=== PATIENT | female | born 1960 | race Caucasian/White ===

== ENCOUNTER 2017-03-04 21:22 | Emergency (ER) | payer BC, OTHER ==
[2017-03-04] MEDS ORDERED: fentaNYL 100 MCG/2 ML SDV IVPUSH ONE (21:34)
[2017-03-04] MEDS ORDERED: Sodium Chloride 0.9% 2.5 ML Syringe FLUSH PRN (21:34)
[2017-03-04] MEDS ORDERED: Sodium Chloride 0.9% 10 ML Syringe FLUSH PRN (21:34)
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
[2017-03-04] MEDS ORDERED: HYDROmorphone 1 MG/ML Syringe IVPUSH ONE (22:59)
[2017-03-05] MEDS ORDERED: Acetaminophen/oxyCODONE 325-10 MG Tab PO ONE (00:04)
[2017-03-05 00:13] VITALS: BP 137/83
--- NOTE | 2017-03-05 15:53 | CT ---
EXAM DATE: 03/04/17 PATIENT'S AGE: 57 Patient: CECILE ADAME Facility: [place], [place] Site . Site : 1960 Study: CT Spine Cervical WO CONT [id number]/25/2017 10:56:10 PM Ordering Physician: Ashly Echols Final Report: INDICATION: Neck pain TECHNIQUE: CT cervical spine without contrast. COMPARISON: None FINDINGS: Vertebral alignment: Alignment is normal. Vertebrae: There are no fractures or suspicious bony lesions. Discs and facet joints: There are mild multilevel degenerative disc and facet changes. Extraspinal findings: Paraspinous soft tissues are unremarkable. IMPRESSION: 1. No sign of acute abnormality. 2. Mild multilevel degenerative spondylosis. Dictated by Rosamaria Bernabe MD @ Mar 04 2017 11:00PM (Electronic Signature) Report Signed by Proxy and Original Signed Document filed in the Medical Record. JENNIFFER
== END 2017-03-05 00:16 | disposition home or self-care (01) ==
LOC: MW.ED 21:22
DX: S16.1XXA Strain of muscle, fascia and tendon at neck level, initial encounter (principal); E78.00 Pure hypercholesterolemia, unspecified; Z87.891 Personal history of nicotine dependence; Z79.899 Other long term (current) drug therapy; Z91.09 Other allergy status, other than to drugs and biological substances; X58.XXXA Exposure to other specified factors, initial encounter
CPT/HCPCS: 72125; 96374; 96375; 99284; A9270; J1170; J3010; 99283

== ENCOUNTER 2017-03-06 15:54 | Emergency (ER) | payer BC, OTHER ==
--- NOTE | 2017-03-06 16:12 | EDM.PDOC ---
<Nan Sam - Last Filed: 03/06/17 17:25> ED HPI GENERAL MEDICAL PROBLEM - General Chief Complaint: General Stated Complaint: PT WOULD LIKE TO GET CHECK Time Seen by Provider: 03/06/17 16:05 Source of Information: Reports: Patient History Limitations: Reports: No limitations - History of Present Illness INITIAL COMMENTS - FREE TEXT/NARRATIVE: HISTORY AND PHYSICAL: [] This is a 57-year-old female with hepatitis C and cirrhosis to her liver History of Present Illness: [Patient was in the emergency room a few days ago with a neck strain received Percocet for her pain Her pain physician in [facility] Dr. Shannon stated she was allergic to Percocet and she should not take this medication. She was instructed to come to the hospital emergency room. Patient denies any unwell feelings at this time no shortness of breath no rash] Review of Systems: As per history of present illness and below otherwise all systems reviewed and negative. Past medical history: As per history of present illness and as reviewed below otherwise noncontributory. Surgical history: As per history of present illness and as reviewed below otherwise noncontributory. Social history: No reported history of drug or alcohol abuse. Family history: As per history of present illness and as reviewed below otherwise noncontributory. Physical exam: Alert anxious-looking woman HEENT: Atraumatic, normocehpalic, pupils reactive, negative for conjunctival pallor or scleral icterus, mucous membranes moist, throat clear, neck supple, nontender, trachea midline. Mild jaundice to her eyes Lungs: Clear to auscultation, breath sounds equal bilaterally, chest non tender. Heart: S1S2, regular, negative for clicks, rubs, or JVD. Abdomen: Soft, nondistended, nontender. Negative for masses or hepatossplenmegaly. Negative for costovertebral tenderness. Pelvis: Stable nontender. Genitourinary: Deferred. Rectal: Deferred Extremities: Atraumatic, negative for cords or calf pain. Neurovascular unremarkable. Neuro: Awake, alert, oriented. Cranial nerves II through XII unremarkable. Cerebellum unremarkable. Motor and sensory unremarkable throughout. Exam nonfocal. Have contacted Dr. Shannon infectious control in [facility] who has recommended that Percocet be stopped would like to have a CBC CMP PT/INR drawn please notify once results are returned The family has been notified of the results and my discussion with Dr. Shannon. He has requested that they see him on Friday or Friday of next week. . Diagnostics: [CBC CMP PT/INR ammonia] Therapeutics: [] Impression: [Confusion Jaundice] Plan: [. Stop Percocet Call tomorrow for appointment on Friday or Friday with Dr. Shannon Any worsening of symptoms return for immediate evaluation] Definitive disposition and diagnosis as appropriate pending reevaluation and review of above. Onset: today Duration: Hour(s): (2) Location: Reports: generalized Severity: mild neck Pain Score (Numeric/FACES): 8 - Related Data Allergies Allergy/AdvReac Type Severity Reaction Status Date / Time acetaminophen [From Percocet] Allergy Confusion Verified 03/06/17 16:05 adhesive Allergy Rash Verified 03/04/17 21:34 oxycodone [From Percocet] Allergy Confusion Verified 03/06/17 16:05 Home Meds: Home Meds DULoxetine HCl [Duloxetine HCl] 60 mg PO DAILY 04/26/14 [History] Ledipasvir/Sofosbuvir [Harvoni 90-400 mg Tablet] 1 tab PO DAILY 03/04/17 [ History] Ribavirin [Ribasphere] 2 tab PO BID 03/04/17 [History] ALPRAZolam [Alprazolam ODT] 0.5 mg PO ONETIME 03/06/17 [History] DULoxetine HCl [Duloxetine HCl] 30 mg PO DAILY 03/06/17 [History] Past Medical History - Past Health History Medical/Surgical History: Denies Medical/Surgical History HEENT History: Reports: Other (see below) Other HEENT History: wears glasses Cardiovascular History: Reports: High cholesterol Respiratory History: Reports: None Gastrointestinal History: Reports: Other (see below) (She reports that she has been treated for chronic hepatitis C) Other Gastrointestinal History: Current Right upper quadrant abdominal pain [employer] RE[employer]ER History: Reports: Musculoskeletal History: Reports: Fracture, Fibromyalgia Other Musculoskeletal History: hx: fractured Right Upper Femur with plate and screws Neurological History: Reports: None Psychiatric History: Reports: Bipolar Endocrine/Metabolic History: Reports: None Other Endocrine/Metabolic History: Current history indicates elevated Glucose Hematologic History: Reports: Blood transfusion(s) Oncologic (Cancer) History: Reports: Colon Dermatologic History: Reports: None - Infectious Disease History Infectious Disease History: Reports: Hepatitis C - Past Surgical History GI Surgical History: Reports: Colon Other GI Surgeries/Procedures: Ascending Colon Resection for cancer, Abdominolplasty Female Surgical History: Reports: section Neurological Surgical History: Reports: Other (see below) Other Neurological Surgeries/Procedures: Carpal tunnel decompression Social & Family History - Tobacco Use Smoking Status *Q: Former Smoker Used Tobacco, but Quit: Yes Month Tobacco Last Used: 120 - Alcohol Use Days Per Week of Alcohol Use: 1 Number of Drinks Per Day: 2 Total Drinks Per Week: 2 - Recreational Drug Use Recreational Drug Use: No Drug Use in Last 12 Months: No ED ROS GENERAL - Review of Systems Review Of Systems: ROS reveals no pertinent complaints other than HPI. ED EXAM, GENERAL - Physical Exam Exam: See Below (See dictation) Course - Vital Signs Last Recorded V/S: Last Vital Signs Temp 37.9 C 03/06/17 17:56 Pulse 104 H 03/06/17 17:56 Resp 18 03/06/17 17:56 BP 131/72 03/06/17 17:56 Pulse Ox 94 L 03/06/17 17:56 - Orders/Labs/Meds Labs: Laboratory Tests 03/06/17 03/06/17 03/06/17 Range/Units 16:37 16:37 16:37 WBC 7.46 (4.0-11.0) K/uL RBC 4.02 L (4.30-5.90) M/uL Hgb 12.7 (12.0-16.0) g/dL Hct 38.0 (36.0-46.0) % MCV 94.5 (80.0-98.0) fL MCH 31.6 (27.0-32.0) pg MCHC 33.4 (31.0-37.0) g/dL RDW Std Deviation 55.6 (28.0-62.0) fl RDW Coeff of Karlos 16 H (11.0-15.0) % Plt Count 66 L (150-400) K/uL MPV 10.20 (7.40-12.00) fL Neut % (Auto) 83.7 H (48.0-80.0) % Lymph % (Auto) 8.3 L (16.0-40.0) % Stone % (Auto) 7.6 (0.0-15.0) % Eos % (Auto) 0.0 (0.0-7.0) % Baso % (Auto) 0.4 (0.0-1.5) % Neut # (Auto) 6.2 H (1.4-5.7) K/uL Lymph # (Auto) 0.6 (0.6-2.4) K/uL Stone # (Auto) 0.6 (0.0-0.8) K/uL Eos # (Auto) 0.0 (0.0-0.7) K/uL Baso # (Auto) 0.0 (0.0-0.1) K/uL Nucleated RBC % 0.0 /100WBC Nucleated RBCs # 0 K/uL INR 1.54 H (0.86-1.11) Sodium 132 L (136-146) mmol/L Potassium 4.2 (3.5-5.1) mmol/L Chloride 101 (98-110) mmol/L Carbon Dioxide 21 (21-31) mmol/L BUN 16 (6.0-23.0) mg/dL Creatinine 0.8 (0.6-1.5) mg/dL Est Cr Clr Drug Dosing 70.88 mL/min Estimated GFR (MDRD) > 60.0 ml/min Glucose 96 (60-110) mg/dL Calcium 8.8 (8.8-10.8) mg/dL Total Bilirubin 5.6 H (0.1-1.5) mg/dL AST 71 H (5-40) IU/L ALT 28 (8-54) IU/L Alkaline Phosphatase 66 (40-150) Ammonia (14-68) UG/DL Total Protein 6.8 (6.0-8.0) g/dL Albumin 2.9 L (3.5-5.0) g/dL Globulin 3.9 H (2.0-3.5) g/dL Albumin/Globulin Ratio 0.7 L (1.3-2.8) 03/06/17 Range/Units 16:37 WBC (4.0-11.0) K/uL RBC (4.30-5.90) M/uL Hgb (12.0-16.0) g/dL Hct (36.0-46.0) % MCV (80.0-98.0) fL MCH (27.0-32.0) pg MCHC (31.0-37.0) g/dL RDW Std Deviation (28.0-62.0) fl RDW Coeff of Karlos (11.0-15.0) % Plt Count (150-400) K/uL MPV (7.40-12.00) fL Neut % (Auto) (48.0-80.0) % Lymph % (Auto) (16.0-40.0) % Stone % (Auto) (0.0-15.0) % Eos % (Auto) (0.0-7.0) % Baso % (Auto) (0.0-1.5) % Neut # (Auto) (1.4-5.7) K/uL Lymph # (Auto) (0.6-2.4) K/uL Stone # (Auto) (0.0-0.8) K/uL Eos # (Auto) (0.0-0.7) K/uL Baso # (Auto) (0.0-0.1) K/uL Nucleated RBC % /100WBC Nucleated RBCs # K/uL INR (0.86-1.11) Sodium (136-146) mmol/L Potassium (3.5-5.1) mmol/L Chloride (98-110) mmol/L Carbon Dioxide (21-31) mmol/L BUN (6.0-23.0) mg/dL Creatinine (0.6-1.5) mg/dL Est Cr Clr Drug Dosing mL/min Estimated GFR (MDRD) ml/min Glucose (60-110) mg/dL Calcium (8.8-10.8) mg/dL Total Bilirubin (0.1-1.5) mg/dL AST (5-40) IU/L ALT (8-54) IU/L Alkaline Phosphatase (40-150) Ammonia 99 H (14-68) UG/DL Total Protein (6.0-8.0) g/dL Albumin (3.5-5.0) g/dL Globulin (2.0-3.5) g/dL Albumin/Globulin Ratio (1.3-2.8) Meds: Medications Discontinued Medications Generic Name Dose Route Start Last Admin Trade Name Freq PRN Reason Stop Dose Admin Diphenhydramine HCl 50 mg 03/06/17 16:13 Benadryl PO 03/06/17 16:14 ONETIME ONE Sodium Chloride 10 ml 03/06/17 16:23 Saline Flush FLUSH ASDIRECTED PRN Keep Vein Open Sodium Chloride 2.5 ml 03/06/17 16:23 Saline Flush FLUSH ASDIRECTED PRN Keep Vein Open Departure - Departure Time of Disposition: 17:28 Disposition: Home, Self-Care 01 Condition: good Clinical Impression: Jaundice, Confusion Instructions: Jaundice, Adult, [id number], Confusion Referrals: Parish Sullivan MD [Primary Care Provider] - Forms: ED Department Discharge Additional Instructions: The following information is given to patients seen in the emergency department who are being discharged to home. This information is to outline your options for follow-up care. We provide all patients seen in our emergency department with a follow-up referral. The need for follow-up, as well as the timing and circumstances, are variable depending upon the specifics of your emergency department visit. If you don't have a primary care physician on staff, we will provide you with a referral. We always advise you to contact your personal physician following an emergency department visit to inform them of the circumstance of the visit and for follow-up with them and/or the need for any referrals to a consulting specialist. The emergency department will also refer you to a specialist when appropriate. This referral assures that you have the opportunity for followup care with a specialist. All of these measure are taken in an effort to provide you with optimal care, which includes your followup. Under all circumstances we always encourage you to contact your private physician who remains a resource for coordinating your care. When calling for followup care, please make the office aware that this follow-up is from your recent emergency room visit. If for any reason you are refused follow-up, please contact the [facility] emergency department at and asked to speak to the emergency department charge nurse. call for appointment with Dr. Shannon on Friday or Friday Return to the emergency room should any symptoms worsen <Joaquín Gallegos - Last Filed: 03/07/17 20:01> ED HPI GENERAL MEDICAL PROBLEM - History of Present Illness INITIAL COMMENTS - FREE TEXT/NARRATIVE: Nan had discussed the patient in detail with Dr. Shannon, infectious disease specialist at [facility], and he recommended followup with him in a few days as listed above
[2017-03-06] MEDS ORDERED: diphenhydrAMINE 50 MG Cap PO ONE (16:13)
[2017-03-06] MEDS ORDERED: Sodium Chloride 0.9% 2.5 ML Syringe FLUSH PRN (16:23)
[2017-03-06] MEDS ORDERED: Sodium Chloride 0.9% 10 ML Syringe FLUSH PRN (16:23)
[2017-03-06 17:09] LABS: CHLORIDE,CL 101 mmol/L (98-110); SODIUM,NA 132 mmol/L (136-146)
[2017-03-06 17:59] VITALS: BP 131/72
== END 2017-03-06 17:55 | disposition home or self-care (01) ==
LOC: MW.ED 15:54
DX: R17 Unspecified jaundice (principal); R41.0 Disorientation, unspecified; E78.00 Pure hypercholesterolemia, unspecified; B18.2 Chronic viral hepatitis C; R10.11 Right upper quadrant pain; M79.7 Fibromyalgia; R73.02 Impaired glucose tolerance (oral); Z87.891 Personal history of nicotine dependence; Z85.038 Personal history of other malignant neoplasm of large intestine; Z98.890 Other specified postprocedural states; Z90.49 Acquired absence of other specified parts of digestive tract; Z79.899 Other long term (current) drug therapy; Z87.81 Personal history of (healed) traumatic fracture; Z88.8 Allergy status to other drugs, medicaments and biological substances; Z88.6 Allergy status to analgesic agent
CPT/HCPCS: 36415; 80053; 82140; 85025; 85610; 99283; 99285

== ENCOUNTER → 2017-03-14 | Outpatient (CLI) | payer BC, OTHER ==
[2017-03-14 13:11] LABS: CHLORIDE,CL 101 mmol/L (98-110); SODIUM,NA 129 mmol/L (136-146)
== END ==
LOC: MW.CHIM 12:26
PROVIDERS: ATTEND Internal Medicine
DX: D72.819 Decreased white blood cell count, unspecified (principal); B19.20 Unspecified viral hepatitis C without hepatic coma; S16.1XXA Strain of muscle, fascia and tendon at neck level, initial encounter; B18.2 Chronic viral hepatitis C
CPT/HCPCS: 36415; 80053; 82085; 82550; 85025; 87070

== ENCOUNTER 2017-03-24 01:21 | Emergency (ER) | payer BC, OTHER ==
[2017-03-24] MEDS ORDERED: Sodium Chloride 0.9% 10 ML Syringe FLUSH PRN (01:45)
[2017-03-24] MEDS ORDERED: Sodium Chloride 0.9% 2.5 ML Syringe FLUSH PRN (01:45)
--- NOTE | 2017-03-24 01:51 | EDM.PDOC ---
ED HPI GENERAL MEDICAL PROBLEM - General Chief Complaint: Respiratory Problem Stated Complaint: SHORTNESS OF BREATH Time Seen by Provider: 03/24/17 01:32 - History of Present Illness INITIAL COMMENTS - FREE TEXT/NARRATIVE: HISTORY AND PHYSICAL: History of present illness: The patient is a 57-year-old female with a history of hepatitis C who is currently receiving treatment on a regular basis at [facility] in [place] with an infectious disease physician, Dr Payne, for this and according to the has only recently been doing better and has been very ill throughout the course of the start of this treatment and they present tonight after the patient was asleep tonight started having a coughing fit with mucus and phlegm and then could not catch her breath. According to the this is happening on a nightly basis and he was more concerned this evening due to the severity of the coughing fit and that she almost passed out with it. He says she seemed to be gasping and could not get any air but currently in the ED she is 100% better. The patient says that she has not been short of breath throughout the day over the last few days and has no chest pain or new abdominal pain. She does have a history of chronic pain issues for which she sees physicians and she's seen here locally with . The patient also has a history of 3 weeks of laryngitis and that is not new tonight. Patient says that over the last one week she has been feeling much improved despite receiving this treatment regimen and has now gone back to eating but does feel very gassy. She has not had any recent fever chills runny nose rashes or other systemic complaints the last few days. She's been having bowel movements and having urine output. In the ED she has actually no complaints of chest pain shortness of breath or any pain. The does state that she sleeps every night with her mouth open, again which is not unusual for her. Patient has never had any stated pulmonary disease but the feels that she is "full of fluid". She's never been told that she has congestive heart failure or gross fluid retention and she currently is not fluid restricted in her diet. She is also not on any diuretics. She's scheduled for her next treatment for her hep C this Friday Review of systems: As per history of present illness and below otherwise all systems reviewed and negative. Past medical history: As per history of present illness and as reviewed below otherwise noncontributory. Surgical history: As per history of present illness and as reviewed below otherwise noncontributory. Social history: No reported history of drug or alcohol abuse. Family history: As per history of present illness and as reviewed below otherwise noncontributory. Physical exam: General: Well-developed well-nourished female who has a soft raspy voice consistent with her history of laryngitis who is nontoxic and not breathless. Vital signs of been reviewed by me. HEENT: Atraumatic, normocephalic, negative for conjunctival pallor or scleral icterus, mucous membranes moist, throat clear, neck supple, nontender, trachea midline. Lungs: Clear to auscultation, breath sounds equal bilaterally, chest nontender.No work or breathing no sensory muscle use no stridor or wheezing Heart: S1S2, regular rate and rhythm with a soft systolic ejection murmur appreciated most at the left sternal border. Abdomen: Soft, nondistended, nontender. there is no rebound or guarding but there is tympany on percussion of the upper abdominal areas without tenderness Negative for masses or hepatosplenomegaly. Negative for costovertebral tenderness. Pelvis: Stable nontender. Genitourinary: Deferred. Rectal: Deferred. Extremities: Atraumatic, negative for cords or calf pain. Neurovascular unremarkable.No pedal edema or leg asymmetry Neuro: Awake, alert, oriented. Cranial nerves II through XII unremarkable. Cerebellum unremarkable. Motor and sensory unremarkable throughout. Exam nonfocal. Diagnostics: EKG chest x-ray CBC CMP lactic acid INR BNP troponin Therapeutics: IV O2 monitor DuoNeb I discussed with the patient and at length testing results including the bilirubin dropped of 5.8 to 3.2 and hemoglobin dropped from 11.8 to 9.3 using labs from March 14 as a comparison. The states that she did have labs more recently at [facility] But he does not have those numbers. The patient again insists that she has not had bleeding from her mouth recently and she has had no GI bleeding such as black or bloody stools and no hematuria. I also discussed with them the chest x-ray findings of a left apical nodule that will need followup and the mild atelectasis due to not taking deep breaths. The says that he has a spirometer at home and he will have her use it. Currently she is not exhibiting signs of any infectious process. I gave him a spacer and I will write for an albuterol inhaler to use as a rescue at home because I feel that the symptoms they are describing sound like a bronchospasm. We will give a duo neb here so the patient can experience the medications and different delivery system. I strongly told them that they need to discuss the lab changes with their provider at [place] when they go there tomorrow for her hep C treatment. I've advised him on reasons to return to the ER. Impression: Episode of dyspnea/bronchospasm resolved prior to admission, history of hep C with treatment regimen Definitive disposition and diagnosis as appropriate pending reevaluation and review of above. no pain Pain Score (Numeric/FACES): 0 - Related Data Allergies Allergy/AdvReac Type Severity Reaction Status Date / Time acetaminophen [From Percocet] Allergy Confusion Verified 03/24/17 01:27 adhesive Allergy Rash Verified 03/24/17 01:27 oxycodone [From Percocet] Allergy Confusion Verified 03/24/17 01:27 Home Meds: Home Meds DULoxetine HCl [Duloxetine HCl] 60 mg PO DAILY 04/26/14 [History] Ledipasvir/Sofosbuvir [Harvoni 90-400 mg Tablet] 1 tab PO DAILY 03/04/17 [ History] Ribavirin [Ribasphere] 2 tab PO BID 03/04/17 [History] ALPRAZolam [Alprazolam ODT] 0.5 mg PO ONETIME 03/06/17 [History] DULoxetine HCl [Duloxetine HCl] 30 mg PO DAILY 03/06/17 [History] Past Medical History - Past Health History Medical/Surgical History: Denies Medical/Surgical History HEENT History: Reports: Other (See Below) Other HEENT History: wear glasses Cardiovascular History: Reports: None Respiratory History: Reports: None Gastrointestinal History: Reports: Other (See Below) Other Gastrointestinal History: Colon CA. 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: Musculoskeletal History: Reports: None Other Musculoskeletal History: hx: fractured Right Upper Femur with plate and screws Neurological History: Reports: None Psychiatric History: Reports: Anxiety, Bipolar, Depression Endocrine/Metabolic History: Reports: None Other Endocrine/Metabolic History: Current history indicates elevated Glucose Hematologic History: Reports: Blood Transfusion(s) Oncologic (Cancer) History: Reports: Colon Dermatologic History: Reports: None - Infectious Disease History Infectious Disease History: Reports: Hepatitis C - Past Surgical History GI Surgical History: Reports: Cholecystectomy, Other (See Below) Other GI Surgeries/Procedures: Tummy Tuck Female Surgical History: Reports: Section Musculoskeletal Surgical History: Reports: Carpal Tunnel Social & Family History - Family History Family Medical History: Noncontributory - Tobacco Use Smoking Status *Q: Never Smoker Used Tobacco, but Quit: Yes Month Tobacco Last Used: 120 - Caffeine Use Caffeine Use: Reports: Soda - Alcohol Use Days Per Week of Alcohol Use: 1 Number of Drinks Per Day: 2 Total Drinks Per Week: 2 - Recreational Drug Use Recreational Drug Use: No Drug Use in Last 12 Months: No Recreational Drug Type: Reports: Marijuana/Hashish ED ROS GENERAL - Review of Systems Review Of Systems: ROS reveals no pertinent complaints other than HPI. ED EXAM, GENERAL - Physical Exam Exam: See Below (See dictation) Course - Vital Signs Last Recorded V/S: Last Vital Signs Temp 36.7 C 03/24/17 01:29 Pulse 88 03/24/17 01:29 Resp 18 03/24/17 01:29 BP 128/69 03/24/17 01:29 Pulse Ox 99 03/24/17 01:51 - Orders/Labs/Meds Orders: Active Orders 24 hr Category Date Time Status Cardiac Monitoring [RC] . DIRECTED Care 03/24/17 01:44 Active EKG 12 Lead [EKG Documentation Completion] [RC] ROUTINE Care 03/24/17 01:20 Active Oxygen Therapy, ED [RC] ASDIRECTED Care 03/24/17 01:44 Active Pulse Oximetry [RC] ASDIRECTED Care 03/24/17 01:44 Active RT Aerosol Therapy [RC] ASDIRECTED Care 03/24/17 02:56 Ordered Chest 2V [CR] Stat Exams 03/24/17 01:45 Taken Albuterol/Ipratropium [DuoNeb 3.0-0.5 MG/3 ML] Med 03/24/17 02:56 Once 3 ml NEB ONETIME ONE Sodium Chloride 0.9% [Saline Flush] Med 03/24/17 01:45 Active 10 ml FLUSH ASDIRECTED PRN Sodium Chloride 0.9% [Saline Flush] Med 03/24/17 01:45 Active 2.5 ml FLUSH ASDIRECTED PRN Saline Lock Insert [OM.PC] Stat Oth 03/24/17 01:44 Ordered Medication Orders Sodium Chloride (Saline Flush) 10 ml FLUSH ASDIRECTED PRN PRN Reason: Keep Vein Open Sodium Chloride (Saline Flush) 2.5 ml FLUSH ASDIRECTED PRN PRN Reason: Keep Vein Open Labs: Laboratory Tests 03/24/17 03/24/17 03/24/17 Range/Units 02:00 02:00 02:00 WBC 7.91 (4.0-11.0) K/uL RBC 2.83 L (4.30-5.90) M/uL Hgb 9.3 L (12.0-16.0) g/dL Hct 27.0 L (36.0-46.0) % MCV 95.4 (80.0-98.0) fL MCH 32.9 H (27.0-32.0) pg MCHC 34.4 (31.0-37.0) g/dL RDW Std Deviation 59.2 (28.0-62.0) fl RDW Coeff of Karlos 17 H (11.0-15.0) % Plt Count 146 L (150-400) K/uL MPV 8.80 (7.40-12.00) fL Neut % (Auto) 73.2 (48.0-80.0) % Lymph % (Auto) 16.4 (16.0-40.0) % Gooding % (Auto) 8.7 (0.0-15.0) % Eos % (Auto) 1.3 (0.0-7.0) % Baso % (Auto) 0.4 (0.0-1.5) % Neut # (Auto) 5.8 H (1.4-5.7) K/uL Lymph # (Auto) 1.3 (0.6-2.4) K/uL Gooding # (Auto) 0.7 (0.0-0.8) K/uL Eos # (Auto) 0.1 (0.0-0.7) K/uL Baso # (Auto) 0.0 (0.0-0.1) K/uL Nucleated RBC % 0.0 /100WBC Nucleated RBCs # 0 K/uL INR (0.86-1.11) Lactate (0.20-2.00) mmol/L Sodium 127 L (136-146) mmol/L Potassium 5.0 (3.5-5.1) mmol/L Chloride 105 (98-110) mmol/L Carbon Dioxide 15 L (21-31) mmol/L BUN 33 H (6.0-23.0) mg/dL Creatinine 1.3 (0.6-1.5) mg/dL Est Cr Clr Drug Dosing 43.62 mL/min Estimated GFR (MDRD) 41.9 ml/min Glucose 135 H (60-110) mg/dL Calcium 7.9 L (8.8-10.8) mg/dL Total Bilirubin 3.2 H (0.1-1.5) mg/dL AST 36 (5-40) IU/L ALT 25 (8-54) IU/L Alkaline Phosphatase 69 (40-150) Troponin I (0.0-0.29) NG/ML B-Natriuretic Peptide 183 H (<100) PG/ML Total Protein 6.9 (6.0-8.0) g/dL Albumin 2.0 L (3.5-5.0) g/dL Globulin 4.9 H (2.0-3.5) g/dL Albumin/Globulin Ratio 0.4 L (1.3-2.8) 03/24/17 03/24/17 03/24/17 Range/Units 02:00 02:00 02:00 WBC (4.0-11.0) K/uL RBC (4.30-5.90) M/uL Hgb (12.0-16.0) g/dL Hct (36.0-46.0) % MCV (80.0-98.0) fL MCH (27.0-32.0) pg MCHC (31.0-37.0) g/dL RDW Std Deviation (28.0-62.0) fl RDW Coeff of Karlos (11.0-15.0) % Plt Count (150-400) K/uL MPV (7.40-12.00) fL Neut % (Auto) (48.0-80.0) % Lymph % (Auto) (16.0-40.0) % Gooding % (Auto) (0.0-15.0) % Eos % (Auto) (0.0-7.0) % Baso % (Auto) (0.0-1.5) % Neut # (Auto) (1.4-5.7) K/uL Lymph # (Auto) (0.6-2.4) K/uL Gooding # (Auto) (0.0-0.8) K/uL Eos # (Auto) (0.0-0.7) K/uL Baso # (Auto) (0.0-0.1) K/uL Nucleated RBC % /100WBC Nucleated RBCs # K/uL INR 1.31 H (0.86-1.11) Lactate 1.5 (0.20-2.00) mmol/L Sodium (136-146) mmol/L Potassium (3.5-5.1) mmol/L Chloride (98-110) mmol/L Carbon Dioxide (21-31) mmol/L BUN (6.0-23.0) mg/dL Creatinine (0.6-1.5) mg/dL Est Cr Clr Drug Dosing mL/min Estimated GFR (MDRD) ml/min Glucose (60-110) mg/dL Calcium (8.8-10.8) mg/dL Total Bilirubin (0.1-1.5) mg/dL AST (5-40) IU/L ALT (8-54) IU/L Alkaline Phosphatase (40-150) Troponin I < 0.10 (0.0-0.29) NG/ML B-Natriuretic Peptide (<100) PG/ML Total Protein (6.0-8.0) g/dL Albumin (3.5-5.0) g/dL Globulin (2.0-3.5) g/dL Albumin/Globulin Ratio (1.3-2.8) Meds: Medications Generic Name Dose Route Start Last Admin Trade Name Freq PRN Reason Stop Dose Admin Sodium Chloride 10 ml 03/24/17 01:45 Saline Flush FLUSH ASDIRECTED PRN Keep Vein Open Sodium Chloride 2.5 ml 03/24/17 01:45 Saline Flush FLUSH ASDIRECTED PRN Keep Vein Open Departure - Departure Time of Disposition: 03:15 Disposition: Home, Self-Care 01 Condition: good Clinical Impression: Bronchospasm, Hx of hepatitis C Dyspnea, unspecified Qualifiers: Dyspnea type: unspecified Qualified Code(s): R06.00 - Dyspnea, unspecified - Discharge Information Forms: ED Department Discharge Additional Instructions: The following information is given to patients seen in the emergency department who are being discharged to home. This information is to outline your options for follow-up care. We provide all patients seen in our emergency department with a follow-up referral. The need for follow-up, as well as the timing and circumstances, are variable depending upon the specifics of your emergency department visit. If you don't have a primary care physician on staff, we will provide you with a referral. We always advise you to contact your personal physician following an emergency department visit to inform them of the circumstance of the visit and for follow-up with them and/or the need for any referrals to a consulting specialist. The emergency department will also refer you to a specialist when appropriate. This referral assures that you have the opportunity for followup care with a specialist. All of these measure are taken in an effort to provide you with optimal care, which includes your followup. Under all circumstances we always encourage you to contact your private physician who remains a resource for coordinating your care. When calling for followup care, please make the office aware that this follow-up is from your recent emergency room visit. If for any reason you are refused follow-up, please contact the [facility] emergency department at and ask to speak to the emergency department charge nurse. [facility] Primary care- [place] [address] Please keep all your appointments at [facility] in [place] and here locally and please discuss the laboratory changes that we discussed with your provider. Use your inhaler every 6 hours as needed and also before bedtime. Please return to ER as needed and as discussed. On March 14 hemoglobin= 11.8; today hemoglobin= 9.3 - My Orders Last 24 Hours: My Active Orders 03/24/17 01:20 EKG 12 Lead [EKG Documentation Completion] [RC] ROUTINE 03/24/17 01:44 Cardiac Monitoring [RC] . DIRECTED Oxygen Therapy, ED [RC] ASDIRECTED Pulse Oximetry [RC] ASDIRECTED Saline Lock Insert [OM.PC] Stat 03/24/17 01:45 Chest 2V [CR] Stat Sodium Chloride 0.9% [Saline Flush] 10 ml FLUSH ASDIRECTED PRN Sodium Chloride 0.9% [Saline Flush] 2.5 ml FLUSH ASDIRECTED PRN 03/24/17 02:56 RT Aerosol Therapy [RC] ASDIRECTED Albuterol/Ipratropium [DuoNeb 3.0-0.5 MG/3 ML] 3 ml NEB ONETIME ONE - Assessment/Plan Last 24 Hours: My Active Orders 03/24/17 01:20 EKG 12 Lead [EKG Documentation Completion] [RC] ROUTINE 03/24/17 01:44 Cardiac Monitoring [RC] . DIRECTED Oxygen Therapy, ED [RC] ASDIRECTED Pulse Oximetry [RC] ASDIRECTED Saline Lock Insert [OM.PC] Stat 03/24/17 01:45 Chest 2V [CR] Stat Sodium Chloride 0.9% [Saline Flush] 10 ml FLUSH ASDIRECTED PRN Sodium Chloride 0.9% [Saline Flush] 2.5 ml FLUSH ASDIRECTED PRN 03/24/17 02:56 RT Aerosol Therapy [RC] ASDIRECTED Albuterol/Ipratropium [DuoNeb 3.0-0.5 MG/3 ML] 3 ml NEB ONETIME ONE
[2017-03-24] MEDS ORDERED: Albuterol/Ipratropium 3.0-0.5 MG/3 ML Neb Soln NEB ONE (02:56)
[2017-03-24 03:32] VITALS: BP 110/59
--- NOTE | 2017-03-24 18:10 | CR ---
EXAM DATE: 03/24/17 PATIENT'S AGE: 57 Patient: CECILE ADAME Facility: [place], [place] Site . Site : 1960 Study: XRay Chest [id number]/[id number] 2:23:10 AM Ordering Physician: Kirstin Salomon Final Report: INDICATION: Shortness of breath and fever TECHNIQUE: Chest 2 views. COMPARISON: None available FINDINGS: Cardiovascular and mediastinum: Normal cardiac size. An unfolded aorta. Lungs and pleural spaces: A small opacity in the lateral left base could represent subsegmental atelectasis. A 6 millimeter left apical nodular opacity. No pleural effusions. Bones and soft tissues: No significant findings. IMPRESSION: Probable mild left basilar subsegmental atelectasis. Correlate clinically and followup to exclude a small infectious infiltrate. A 6 millimeter left apical nodular opacity. Correlate with apical and lordotic views. If this persists, correlate with CT scan. Dictated by John Kirk MD @ 03/24/2017 2:37:25 AM Dictated by: John Kirk MD @ 03/24/2017 02:37:30 (Electronic Signature) Report Signed by Proxy. JENNIFFER
== END 2017-03-24 03:30 | disposition home or self-care (01) ==
LOC: MW.ED 01:21
DX: J98.01 Acute bronchospasm (principal); F31.9 Bipolar disorder, unspecified; Z88.6 Allergy status to analgesic agent; Z88.8 Allergy status to other drugs, medicaments and biological substances; Z79.899 Other long term (current) drug therapy; Z90.49 Acquired absence of other specified parts of digestive tract; B19.20 Unspecified viral hepatitis C without hepatic coma; J37.0 Chronic laryngitis; F41.9 Anxiety disorder, unspecified; K74.60 Unspecified cirrhosis of liver
CPT/HCPCS: 71020; 71020-26; 80053; 83605; 83880; 84484; 85025; 85610; 93005; 99284; 99285-25

== ENCOUNTER 2017-05-04 13:33 | Emergency (ER) | payer BC ==
--- NOTE | 2017-05-04 14:06 | EDM.PDOC ---
ED HPI GENERAL MEDICAL PROBLEM - General Chief Complaint: Upper Extremity Injury/Pain Stated Complaint: PAIN LT WRIST/LT ANKLE Time Seen by Provider: 05/04/17 13:53 - History of Present Illness INITIAL COMMENTS - FREE TEXT/NARRATIVE: HISTORY AND PHYSICAL: History of present illness: Patient 57-year-old female with extensive past medical history presents with concern of chronic left wrist and ankle pain and swelling she's had this for several months she's on multiple medications and is unsure of etiology she has matre Dr. Seo of this who thought that might have been related to an occult injury patient does not recall any specific injury or other concern. A lengthy discussion regarding diagnostic testing in the subacute or chronic nature of this at this point patient wants to defer any further evaluation and/or treatment and does have a scheduled appointment with her private medical physician and will schedule subsequent follow-up as directed per her private doctor Review of systems: As per history of present illness and below otherwise all systems reviewed and negative. Past medical history: As per history of present illness and as reviewed below otherwise noncontributory. Surgical history: As per history of present illness and as reviewed below otherwise noncontributory. Social history: No reported history of drug or alcohol abuse. Family history: As per history of present illness and as reviewed below otherwise noncontributory. Physical exam: Deferred by patient Diagnostics: Deferred by patient Therapeutics: None Impression: #1 chronic left wrist/ankle pain #2 history of hepatitis C Definitive disposition and diagnosis as appropriate pending reevaluation and review of above. left arm & ankle Pain Score (Numeric/FACES): 8 - Related Data Allergies Allergy/AdvReac Type Severity Reaction Status Date / Time adhesive Allergy Rash Verified 05/04/17 13:49 Home Meds: Home Meds DULoxetine HCl [Duloxetine HCl] 60 mg PO DAILY 04/26/14 [History] Ledipasvir/Sofosbuvir [Harvoni 90-400 mg Tablet] 1 tab PO DAILY 03/04/17 [ History] Ribavirin [Ribasphere] 2 tab PO BID 03/04/17 [History] ALPRAZolam [Alprazolam ODT] 0.5 mg PO ONETIME 03/06/17 [History] DULoxetine HCl [Duloxetine HCl] 30 mg PO DAILY 03/06/17 [History] Past Medical History - Past Health History Medical/Surgical History: Denies Medical/Surgical History HEENT History: Reports: Other (See Below) Other HEENT History: wear glasses Cardiovascular History: Reports: None Respiratory History: Reports: None Gastrointestinal History: Reports: Other (See Below) Other Gastrointestinal History: Colon CA. 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 History: Reports: None Other Musculoskeletal History: hx: fractured Right Upper Femur with plate and screws Neurological History: Reports: None Psychiatric History: Reports: Anxiety, Bipolar, Depression Endocrine/Metabolic History: Reports: None Other Endocrine/Metabolic History: Current history indicates elevated Glucose Hematologic History: Reports: Blood Transfusion(s) Oncologic (Cancer) History: Reports: Colon Dermatologic History: Reports: None - Infectious Disease History Infectious Disease History: Reports: Hepatitis C - Past Surgical History GI Surgical History: Reports: Cholecystectomy, Other (See Below) Other GI Surgeries/Procedures: Tummy Tuck Social & Family History - Family History Family Medical History: Noncontributory - Tobacco Use Smoking Status *Q: Never Smoker Used Tobacco, but Quit: Yes Month Tobacco Last Used: 120 - Caffeine Use Caffeine Use: Reports: Soda - Alcohol Use Days Per Week of Alcohol Use: 1 Number of Drinks Per Day: 2 Total Drinks Per Week: 2 - Recreational Drug Use Recreational Drug Use: No Drug Use in Last 12 Months: No Recreational Drug Type: Reports: Marijuana/Hashish Review of Systems - Review of Systems Review Of Systems: ROS reveals no pertinent complaints other than HPI. ED EXAM, GENERAL - Physical Exam Exam: See Below (See dictation) Course - Vital Signs Last Recorded V/S: Last Vital Signs Temp 36.1 C 05/04/17 13:49 Pulse 95 05/04/17 13:49 Resp 18 05/04/17 13:49 BP 136/74 05/04/17 13:49 Pulse Ox 98 05/04/17 13:49 Departure - Departure Time of Disposition: 14:05 Disposition: Home, Self-Care 01 Condition: Good Clinical Impression: Chronic wrist pain, Chronic ankle pain - Discharge Information Forms: ED Department Discharge Additional Instructions: The following information is given to patients seen in the emergency department who are being discharged to home. This information is to outline your options for follow-up care. We provide all patients seen in our emergency department with a follow-up referral. The need for follow-up, as well as the timing and circumstances, are variable depending upon the specifics of your emergency department visit. If you don't have a primary care physician on staff, we will provide you with a referral. We always advise you to contact your personal physician following an emergency department visit to inform them of the circumstance of the visit and for follow-up with them and/or the need for any referrals to a consulting specialist. The emergency department will also refer you to a specialist when appropriate. This referral assures that you have the opportunity for followup care with a specialist. All of these measure are taken in an effort to provide you with optimal care, which includes your followup. Under all circumstances we always encourage you to contact your private physician who remains a resource for coordinating your care. When calling for followup care, please make the office aware that this follow-up is from your recent emergency room visit. If for any reason you are refused follow-up, please contact the [facility] emergency department at and asked to speak to the emergency department charge nurse. Follow-up primary medical doctor 2148 hrs. continue current medications return as needed as discussed
[2017-05-04 14:26] VITALS: BP 127/80
== END 2017-05-04 14:25 | disposition home or self-care (01) ==
LOC: MW.ED 13:33
DX: M25.532 Pain in left wrist (principal); M25.572 Pain in left ankle and joints of left foot; G89.29 Other chronic pain; F32.9 Major depressive disorder, single episode, unspecified; F41.9 Anxiety disorder, unspecified; Z79.899 Other long term (current) drug therapy; Z90.49 Acquired absence of other specified parts of digestive tract
CPT/HCPCS: 99282; A4566

== ENCOUNTER 2017-05-15 16:41 | Inpatient (IN) | payer BC ==
[2017-05-15] MEDS ORDERED: Ondansetron 4 MG Tab.DIS PO PRN (17:56)
[2017-05-15] MEDS ORDERED: Sodium Chloride 0.9% 2.5 ML Syringe FLUSH PRN (17:56)
[2017-05-15] MEDS ORDERED: Sodium Chloride 0.9% 10 ML Syringe FLUSH PRN (17:56)
[2017-05-15] MEDS ORDERED: Vancomycin 1.5 GM in Sodium Chloride 0.9% 500 ML IV SCH (18:30)
[2017-05-15] MEDS ORDERED: ALPRAZolam 0.5 MG Tab PO PRN (18:36)
--- NOTE | 2017-05-15 18:52 | PCM.HP ---
H&P History of Present Illness - General Date of Service: 05/15/17 Admit Problem/Dx: Admission Diagnosis/Problem Admission Diagnosis/Problem Cellulitis Source of Information: Patient, Family - History of Present Illness Initial Comments - Free Text/Narative: 57 yo female with HCV and liver cirhosis on harvani admitted for bilateral lower extremity cellulitis and edema. She was seen in the clinic today where the PCP was concerned about her tachycardia, weakness, and increased edema of the lower extremity. She states she had noticed her lower extremity was swollen x 2 months. For the past couple of days she noticed her lateral foot is red and her right foot is red and painful. She is generally weak on the left side not a new change. She uses wheelchair at home. She denies fever, chills, n/v/d, dysuria, frequency, urgency, abdominal pain, confusion, palpitations, chest pain , sob or other pertinent symptoms. Left Ankle Pain Score (Numeric/FACES): 10 - Related Data Allergies/Adverse Reactions: Allergies Allergy/AdvReac Type Severity Reaction Status Date / Time adhesive Allergy Rash Verified 05/04/17 13:49 Home Medications: Home Meds Ledipasvir/Sofosbuvir [Harvoni 90-400 mg Tablet] 1 tab PO DAILY 03/04/17 [ History] Ribavirin [Ribasphere] 200 mg PO DAILY 03/04/17 [History] ALPRAZolam [Alprazolam ODT] 0.5 mg PO DAILY PRN 03/06/17 [History] DULoxetine HCl [Duloxetine HCl] 90 mg PO DAILY 03/06/17 [History] Furosemide 20 mg PO 05/15/17 [History] Potassium Bicarbonate/Cit Ac [Potassium 25 Meq Tablet Eff] 1 tab PO DAILY [History] Past Medical History - Past Health History Medical/Surgical History: Denies Medical/Surgical History HEENT History: Reports: Impaired Vision, Other (See Below) Other HEENT History: wear glasses Cardiovascular History: Reports: None Respiratory History: Reports: SOB Gastrointestinal History: Reports: Other (See Below) Other Gastrointestinal History: Colon CA. 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: Reports: Musculoskeletal History: Reports: None Other Musculoskeletal History: hx: fractured Right Upper Femur with plate and screws Neurological History: Reports: None Psychiatric History: Reports: Anxiety, Bipolar, Depression Endocrine/Metabolic History: Reports: None Other Endocrine/Metabolic History: Current history indicates elevated Glucose Hematologic History: Reports: Blood Transfusion(s) Oncologic (Cancer) History: Reports: Colon Dermatologic History: Reports: None - Infectious Disease History Infectious Disease History: Reports: Hepatitis C, Influenza - Past Surgical History HEENT Surgical History: Reports: Tonsillectomy Respiratory Surgical History: Reports: None GI Surgical History: Reports: Cholecystectomy, Other (See Below) Other GI Surgeries/Procedures: Tummy Tuck Musculoskeletal Surgical History: Reports: Other (See Below) Other Musculoskeletal Surgeries/Procedures:: Right femur surgery with plates and screws Oncologic Surgical History: Reports: None Social & Family History - Family History Family Medical History: Noncontributory - Tobacco Use Smoking Status *Q: Former Smoker Years of Tobacco use: 20 Used Tobacco, but Quit: No Month Tobacco Last Used: quit 23 years ago Second Hand Smoke Exposure: Yes - Caffeine Use Caffeine Use: Reports: Soda - Alcohol Use Days Per Week of Alcohol Use: 1 Number of Drinks Per Day: 2 Total Drinks Per Week: 2 - Recreational Drug Use Recreational Drug Use: Yes Drug Use in Last 12 Months: Yes Recreational Drug Type: Reports: Marijuana/Hashish Recreational Drug Use Frequency: Daily H&P Review of Systems - Review of Systems: Review Of Systems: See Below General: Reports: Fatigue HEENT: Reports: No Symptoms Pulmonary: Reports: No Symptoms Cardiovascular: Reports: No Symptoms Gastrointestinal: Reports: No Symptoms Genitourinary: Reports: No Symptoms Musculoskeletal: Reports: No Symptoms Skin: Reports: Change in Color, Other (swollen ankles) Psychiatric: Reports: No Symptoms Neurological: Reports: No Symptoms Exam - Exam Exam: See Below - Vital Signs Vital Signs: Last Vital Signs Temp 99 F 05/15/17 17:00 Pulse 95 05/15/17 17:00 Resp 20 05/15/17 17:00 BP 120/68 05/15/17 17:00 Pulse Ox 99 05/15/17 17:00 Weight: 72.5 kg - Exam General: Alert, Oriented, Cooperative HEENT: Conjunctiva Clear, EOMI Neck: Supple, Trachea Midline Lungs: Clear to Auscultation, Normal Respiratory Effort Cardiovascular: Regular Rate, Regular Rhythm Abdomen: Normal Bowel Sounds, Soft. No: Rebound, Tenderness Back Exam: Normal Inspection Extremities: Edema, Increased Warmth (bilateral +3 pitting edema. Left lateral mallelous: there is erythema, warmth. Right foot 1st MTP: there tenderness, warmth. No open wounds ) Neurological: Cranial Nerves Intact *Q Meaningful Use (ADM) - VTE *Q VTE Criteria *Q: - Stroke *Q Stroke Criteria *Q: - AMI *Q AMI Criteria *Q: Problem List Initiated/Reviewed/Updated: Yes Orders Last 24hrs: Active Orders 24 hr Category Date Time Status Patient Status [ADT] Routine ADT 05/15/17 17:56 Active Bedrest Bathroom Privileges [RC] ASDIRECTED Care 05/15/17 17:56 Active Intake and Output [RC] Q12H Care 05/15/17 17:57 Active Oxygen Therapy [RC] PRN Care 05/15/17 17:56 Active Pulse Oximetry [RC] PRN Care 05/15/17 17:57 Active Up With Assistance [RC] ASDIRECTED Care 05/15/17 17:56 Active Vital Signs [RC] Q4H Care 05/15/17 17:56 Active Regular Diet [DIET] Diet 05/15/17 Dinner Active Venous Doppler Lwr Ext Lt [US] Stat Exams 05/15/17 18:12 Ordered Venous Doppler Lwr Ext Rt [US] Stat Exams 05/15/17 18:12 Ordered C-REACTIVE PROTEIN [CHEM] Routine Lab 05/15/17 17:56 Ordered CBC WITH AUTO DIFF [HEME] AM Lab 05/16/17 05:11 Ordered COMPREHENSIVE METABOLIC PN,CMP [CHEM] AM Lab 05/16/17 05:11 Ordered CULTURE BLOOD [BC] Stat Lab 05/15/17 18:00 Ordered CULTURE BLOOD [BC] Stat Lab 05/15/17 18:00 Ordered SEDIMENTATION RATE AUTO [HEME] AM Lab 05/16/17 05:11 Ordered UA W/MICROSCOPIC [URIN] Routine Lab 05/15/17 18:19 Received Ampicillin/Sulbactam Na [Unasyn] 3 gm Med 05/15/17 19:00 Active Sodium Chloride 0.9% [Normal Saline] 100 ml IV Q6H Ondansetron [Zofran ODT] Med 05/15/17 17:56 Active 4 mg PO Q4H PRN Sodium Chloride 0.9% [Saline Flush] Med 05/15/17 17:56 Active 10 ml FLUSH ASDIRECTED PRN Sodium Chloride 0.9% [Saline Flush] Med 05/15/17 17:56 Active 2.5 ml FLUSH ASDIRECTED PRN Vancomycin 1.5 gm Med 05/15/17 18:30 Ordered Sodium Chloride 0.9% [Normal Saline] 500 ml IV Q24H Blood Culture x2 Reflex Set [OM.PC] Stat Oth 05/15/17 17:56 Ordered Peripheral IV Insertion Adult [OM.PC] Routine Oth 05/15/17 17:56 Ordered Resuscitation Status Routine Resus Stat 05/15/17 17:56 Ordered Medication Orders Ampicillin Sodium/Sulbactam (Sodium 3 gm/ Sodium Chloride) 100 mls @ 200 mls/ hr IV Q6H [facility] Vancomycin HCl 1.5 gm/ Sodium (Chloride) 500 mls @ 333 mls/hr IV Q24H [facility] Ondansetron HCl (Zofran Odt) 4 mg PO Q4H PRN PRN Reason: nausea, able to take PO Sodium Chloride (Saline Flush) 10 ml FLUSH ASDIRECTED PRN PRN Reason: Keep Vein Open Sodium Chloride (Saline Flush) 2.5 ml FLUSH ASDIRECTED PRN PRN Reason: Keep Vein Open Assessment/Plan Comment:: 57 yo female with liver cirhosis admitted for bilateral cellulitis and UTI blood cultures x 2 bilateral doppler us start unasyn and vanco monitor VSS UA: positive nitrites, large leukoesterase, occult blood check crp, uric acid resume home medications
[2017-05-15] MEDS: DULoxetine 30 MG Cap PO SCH (18:58)
[2017-05-15] MEDS ORDERED: Ampicillin/Sulbactam Na 3 GM in Sodium Chloride 0.9% 100 ML IV SCH (19:00)
[2017-05-15] MEDS ORDERED: Enoxaparin 40 MG/0.4 ML Syringe SUBCUT SCH (19:00)
[2017-05-15] MEDS: Potassium Bicarbonate 25 MEQ Tab.EFF PO SCH (19:08)
[2017-05-15] MEDS ORDERED: [UNRECOGNIZED DRUG - OTHER] PO SCH (20:00)
[2017-05-15] MEDS ORDERED: SOFOSBUVIR PO SCH (20:00)
[2017-05-15] MEDS ORDERED: LEDIPASVIR PO SCH (20:00)
[2017-05-15] MEDS: Ampicillin/Sulbactam Na 3 GM in Sodium Chloride 0.9% 100 ML IV SCH (20:47)
[2017-05-15] MEDS ORDERED: Ibuprofen 200 MG Tab PO PRN (21:21)
[2017-05-16] MEDS: Ampicillin/Sulbactam Na 3 GM in Sodium Chloride 0.9% 100 ML IV SCH ×4 (03:25→21:23)
[2017-05-16] MEDS: DULoxetine 30 MG Cap PO SCH (08:50)
[2017-05-16] MEDS: Potassium Bicarbonate 25 MEQ Tab.EFF PO SCH (08:50)
[2017-05-16] MEDS: LEDIPASVIR PO SCH (08:53)
[2017-05-16] MEDS: SOFOSBUVIR PO SCH (08:53)
[2017-05-16] MEDS: RIBAVIRIN 200 MG PO SCH ×2 (09:05)
--- NOTE | 2017-05-16 11:09 | PCM.PN ---
- General Info Date of Service: 05/16/17 Functional Status: Reports: pain controlled, tolerating diet, urinating - Review of Systems General: Reports: No Symptoms HEENT: Reports: no symptoms Pulmonary: Reports: no symptoms Cardiovascular: Reports: No Symptoms Gastrointestinal: Reports: No symptoms Musculoskeletal: Reports: shoulder pain, hand pain, back pain Skin: Reports: other (lower ext swelling) Neurological: Reports: No Symptoms Psychiatric: Reports: no symptoms - Patient Data Vitals - most recent: Last Vital Signs Temp 98.0 F 05/16/17 08:00 Pulse 86 05/16/17 08:00 Resp 16 05/16/17 08:00 BP 106/63 05/16/17 08:00 Pulse Ox 93 L 05/16/17 08:00 Weight - most recent: 72.4 kg I&O - last 24 hours: Intake & Output 05/15/17 05/16/17 05/16/17 22:59 06:59 14:59 Intake Total 350 900 Output Total 850 Balance 350 50 Lab Results last 24 hrs: Laboratory Results - last 24 hr 05/15/17 05/15/17 05/15/17 Range/Units 16:36 16:36 18:19 WBC (4.0-11.0) K/uL RBC (4.30-5.90) M/uL Hgb (12.0-16.0) g/dL Hct (36.0-46.0) % MCV (80.0-98.0) fL MCH (27.0-32.0) pg MCHC (31.0-37.0) g/dL RDW Std Deviation (28.0-62.0) fl RDW Coeff of Karlos (11.0-15.0) % Plt Count (150-400) K/uL MPV (7.40-12.00) fL Neut % (Auto) (48.0-80.0) % Lymph % (Auto) (16.0-40.0) % King % (Auto) (0.0-15.0) % Eos % (Auto) (0.0-7.0) % Baso % (Auto) (0.0-1.5) % Neut # (Auto) (1.4-5.7) K/uL Lymph # (Auto) (0.6-2.4) K/uL King # (Auto) (0.0-0.8) K/uL Eos # (Auto) (0.0-0.7) K/uL Baso # (Auto) (0.0-0.1) K/uL Nucleated RBC % /100WBC Nucleated RBCs # K/uL ESR (0-29) mm/hr Sodium (136-146) mmol/L Potassium (3.5-5.1) mmol/L Chloride (98-110) mmol/L Carbon Dioxide (21-31) mmol/L BUN (6.0-23.0) mg/dL Creatinine (0.6-1.5) mg/dL Est Cr Clr Drug Dosing mL/min Estimated GFR (MDRD) ml/min Glucose (60-110) mg/dL Uric Acid 5.4 (2.1-6.2) mg/dL Calcium (8.8-10.8) mg/dL Total Bilirubin (0.1-1.5) mg/dL AST (5-40) IU/L ALT (8-54) IU/L Alkaline Phosphatase (40-150) C-Reactive Protein (0.0-0.5) mg/dL B-Natriuretic Peptide 259 H (<100) PG/ML Total Protein (6.0-8.0) g/dL Albumin (3.5-5.0) g/dL Globulin (2.0-3.5) g/dL Albumin/Globulin Ratio (1.3-2.8) Urine Color YELLOW Urine Appearance CLEAR Urine pH 7.0 (5.0-8.0) Ur Specific [place] <= 1.005 (1.001-1.035) Urine Protein NEGATIVE (NEGATIVE) mg/dL Urine Glucose (UA) NEGATIVE (NEGATIVE) mg/dL Urine Ketones NEGATIVE (NEGATIVE) mg/dL Urine Occult Blood LARGE H (NEGATIVE) Urine Nitrite POSITIVE H (NEGATIVE) Urine Bilirubin NEGATIVE (NEGATIVE) Urine Urobilinogen 0.2 (<2.0) EU/dL Ur Leukocyte Esterase LARGE (NEGATIVE) Urine RBC 25-30 (0-2/HPF) Urine WBC 4-8 (0-5/HPF) Ur Epithelial Cells FEW (NONE-FEW) Urine Bacteria 1+ H (NEGATIVE) 05/15/17 05/16/17 05/16/17 Range/Units 18:45 05:32 05:32 WBC 4.93 (4.0-11.0) K/uL RBC 2.56 L (4.30-5.90) M/uL Hgb 7.8 L (12.0-16.0) g/dL Hct 24.2 L (36.0-46.0) % MCV 94.5 (80.0-98.0) fL MCH 30.5 (27.0-32.0) pg MCHC 32.2 (31.0-37.0) g/dL RDW Std Deviation 50.0 (28.0-62.0) fl RDW Coeff of Karlos 15 (11.0-15.0) % Plt Count 100 L (150-400) K/uL MPV 8.70 (7.40-12.00) fL Neut % (Auto) 55.2 (48.0-80.0) % Lymph % (Auto) 32.9 (16.0-40.0) % King % (Auto) 9.7 (0.0-15.0) % Eos % (Auto) 2.0 (0.0-7.0) % Baso % (Auto) 0.2 (0.0-1.5) % Neut # (Auto) 2.7 (1.4-5.7) K/uL Lymph # (Auto) 1.6 (0.6-2.4) K/uL King # (Auto) 0.5 (0.0-0.8) K/uL Eos # (Auto) 0.1 (0.0-0.7) K/uL Baso # (Auto) 0.0 (0.0-0.1) K/uL Nucleated RBC % 0.0 /100WBC Nucleated RBCs # 0 K/uL ESR 86 H (0-29) mm/hr Sodium 135 L (136-146) mmol/L Potassium 3.3 L (3.5-5.1) mmol/L Chloride 105 (98-110) mmol/L Carbon Dioxide 22 (21-31) mmol/L BUN 9 (6.0-23.0) mg/dL Creatinine 1.0 (0.6-1.5) mg/dL Est Cr Clr Drug Dosing 56.71 mL/min Estimated GFR (MDRD) 56.7 ml/min Glucose 73 (60-110) mg/dL Uric Acid (2.1-6.2) mg/dL Calcium 7.4 L (8.8-10.8) mg/dL Total Bilirubin 1.6 H (0.1-1.5) mg/dL AST 28 (5-40) IU/L ALT 15 (8-54) IU/L Alkaline Phosphatase 62 (40-150) C-Reactive Protein 5.36 H (0.0-0.5) mg/dL B-Natriuretic Peptide (<100) PG/ML Total Protein 5.8 L (6.0-8.0) g/dL Albumin 1.7 L (3.5-5.0) g/dL Globulin 4.1 H (2.0-3.5) g/dL Albumin/Globulin Ratio 0.4 L (1.3-2.8) Urine Color Urine Appearance Urine pH (5.0-8.0) Ur Specific [place] (1.001-1.035) Urine Protein (NEGATIVE) mg/dL Urine Glucose (UA) (NEGATIVE) mg/dL Urine Ketones (NEGATIVE) mg/dL Urine Occult Blood (NEGATIVE) Urine Nitrite (NEGATIVE) Urine Bilirubin (NEGATIVE) Urine Urobilinogen (<2.0) EU/dL Ur Leukocyte Esterase (NEGATIVE) Urine RBC (0-2/HPF) Urine WBC (0-5/HPF) Ur Epithelial Cells (NONE-FEW) Urine Bacteria (NEGATIVE) Med Orders - Current: Current Medications Alprazolam (Xanax) 0.5 mg PO DAILY PRN PRN Reason: Anxiety Last Admin: 05/15/17 21:58 Dose: 0.5 mg Duloxetine HCl (Cymbalta) 90 mg PO DAILY [facility] Last Admin: 05/16/17 08:50 Dose: 90 mg Enoxaparin Sodium (Lovenox) 40 mg SUBCUT Q24H [facility] Last Admin: 05/15/17 19:02 Dose: 40 mg Vancomycin HCl 1 gm/ Sodium (Chloride) 250 mls @ 166 mls/hr IV Q12H [facility] Last Admin: 05/16/17 09:38 Dose: 166 mls/hr Ampicillin Sodium/Sulbactam (Sodium 3 gm/ Sodium Chloride) 100 mls @ 200 mls/ hr IV Q6H [facility] Ibuprofen (Motrin) 200 mg PO Q6H PRN PRN Reason: Pain Last Admin: 05/15/17 21:42 Dose: 200 mg Ondansetron HCl (Zofran Odt) 4 mg PO Q4H PRN PRN Reason: nausea, able to take PO Ribavirin [ (Ribasphere] 200 Mg) 1 each PO DAILY [facility] Last Admin: 05/16/17 09:05 Dose: 1 each Ledipasvir/Sofosbuvir [Harvoni 90-400 Mg Tablet] 1 Tab 1 each PO DAILY [facility] Last Admin: 05/16/17 08:53 Dose: 1 each Potassium Bicarbonate (Klor-Con Ef) 25 meq PO DAILY [facility] Last Admin: 05/16/17 08:50 Dose: 25 meq Sodium Chloride (Saline Flush) 10 ml FLUSH ASDIRECTED PRN PRN Reason: Keep Vein Open Sodium Chloride (Saline Flush) 2.5 ml FLUSH ASDIRECTED PRN PRN Reason: Keep Vein Open Vancomycin HCl (Pharmacy To Dose - Vancomycin) 0 dose .XX DAILY [facility] Discontinued Medications Ampicillin Sodium/Sulbactam (Sodium 3 gm/ Sodium Chloride) 100 mls @ 200 mls/ hr IV Q6H [facility] Last Admin: 05/15/17 20:06 Dose: Not Given Ampicillin Sodium/Sulbactam (Sodium 3 gm/ Sodium Chloride) 100 mls @ 200 mls/ hr IV Q6H [facility] Last Admin: 05/16/17 08:52 Dose: 200 mls/hr Non-Formulary Medication (Ledipasvir/Sofosbuvir [Harvoni 90-400 Mg Tablet]) 1 tab PO DAILY [facility] Last Admin: 05/15/17 20:03 Dose: Not Given - Exam General: alert, oriented HEENT: Pupils equal, Pupils reactive, EOMI Neck: supple Lungs: Clear to auscultation, Normal respiratory effort Cardiovascular: Regular Rate, Regular Rhythm Abdomen: bowel sounds present, no tenderness Back Exam: Normal Inspection, Full Range of Motion, Muscle Spasm Extremities: edema (left > right lower extremity pitting edema. Decreased warmth and redness.) Skin: warm, dry, intact Neurological: no new focal deficit Psy/Mental Status: alert, normal affect, normal mood - Problem List Review Problem List Initiated/Reviewed/Updated: Yes - My Orders Last 24 Hours: My Active Orders 05/15/17 17:56 Patient Status [ADT] Routine Bedrest Bathroom Privileges [RC] ASDIRECTED Oxygen Therapy [RC] PRN Up With Assistance [RC] ASDIRECTED Vital Signs [RC] Q4H Ondansetron [Zofran ODT] 4 mg PO Q4H PRN Sodium Chloride 0.9% [Saline Flush] 10 ml FLUSH ASDIRECTED PRN Sodium Chloride 0.9% [Saline Flush] 2.5 ml FLUSH ASDIRECTED PRN Blood Culture x2 Reflex Set [OM.PC] Stat Peripheral IV Insertion Adult [OM.PC] Routine Resuscitation Status Routine 05/15/17 17:57 Intake and Output [RC] Q12H Pulse Oximetry [RC] PRN 05/15/17 18:12 Venous Doppler Lwr Ext Lt [US] Stat Venous Doppler Lwr Ext Rt [US] Stat 05/15/17 18:19 CULTURE URINE [RM] Routine 05/15/17 18:36 ALPRAZolam [Xanax] 0.5 mg PO DAILY PRN 05/15/17 18:45 CULTURE BLOOD [BC] Stat CULTURE BLOOD [BC] Stat DULoxetine [Cymbalta] 90 mg PO DAILY Furosemide [Lasix] DOSE UNIT RTE FREQ Patient's Own Medication [Ptom] 1 each PO DAILY Potassium Bicarbonate [Klor-Con EF] 25 meq PO DAILY 05/15/17 19:00 Enoxaparin [Lovenox] 40 mg SUBCUT Q24H Vancomycin [Vancocin] 1 gm Sodium Chloride 0.9% [Normal Saline] 250 ml IV Q12H 05/15/17 Dinner Regular Diet [DIET] 05/16/17 09:00 Patient's Own Medication [Ptom] 1 each PO DAILY Vancomycin Pharmacy to Dose [Pharmacy to Dose - Vancomycin] 0 dose .XX DAILY 05/16/17 15:00 Ampicillin/Sulbactam Na [Unasyn] 3 gm Sodium Chloride 0.9% [Normal Saline] 100 ml IV Q6H - Plan Plan:: 57 yo female with liver cirhosis admitted for bilateral cellulitis and UTI: improving blood cultures x 2: pending bilateral doppler us negative, uric acid wnl unasyn and vanco monitor VSS UA: positive nitrites, large leukoesterase, occult blood. await culture resume home medications: patient has her own medication harvani for HCV Dispo 1- 2 days
--- NOTE | 2017-05-16 16:46 | US ---
EXAM DATE: 05/15/17 PATIENT'S AGE: 57 Patient: CECILE DYE Facility: [place], [place] Site . Site : 1960 Study: US Extremity Right [id number]/6/[id number] 7:43:38 PM Ordering Physician: Anthony Black Final Report: INDICATION: leg pain and swelling TECHNIQUE: Ultrasound venous duplex lower right extremity. Compression venous exam was performed using cabral-scale, color Doppler, and spectral Doppler imaging. COMPARISON: None FINDINGS: Sonographic imaging demonstrates the right common femoral, deep femoral, superficial femoral, popliteal, posterior tibial and greater saphenous and the contralateral left common femoral veins to be fully compressible with normal color Doppler blood flow. Nonspecific subcutaneous edema. IMPRESSION: No evidence of deep venous thrombosis within the right lower extremity. Dictated by Jefry Rasmussen MD @ 05/15/2017 8:01:06 PM Dictated by: Jefry Rasmussen MD @ 05/15/2017 20:01:15 (Electronic Signature) Report Signed by Proxy. [facility]
--- NOTE | 2017-05-16 16:47 | US ---
EXAM DATE: 05/15/17 PATIENT'S AGE: 57 Patient: CECILE DYE Facility: [place], [place] Site . Site : 1960 Study: US Extremity Left [id number]/6/2017 7:44:48 PM Ordering Physician: Anthony Black Final Report: INDICATION: pain and swelling TECHNIQUE: Ultrasound venous duplex lower left extremity. Compression venous exam was performed using cabral-scale, color Doppler, and spectral Doppler analysis. COMPARISON: None FINDINGS: Sonographic imaging demonstrates the left common femoral, deep femoral, superficial femoral, popliteal, posterior tibial and greater saphenous and the contralateral right common femoral veins to be fully compressible with normal color Doppler blood flow. Nonspecific subcutaneous edema IMPRESSION: No evidence of deep venous thrombosis within the left lower extremity. Dictated by Jefry Rasmussen MD @ 05/15/2017 8:02:16 PM Dictated by: Jefry Rasmussen MD @ 05/15/2017 20:02:22 (Electronic Signature) Report Signed by Proxy. JENNIFFER
[2017-05-17] MEDS: Ampicillin/Sulbactam Na 3 GM in Sodium Chloride 0.9% 100 ML IV SCH ×4 (02:34→20:02)
[2017-05-17] MEDS: Potassium Bicarbonate 25 MEQ Tab.EFF PO SCH (08:12)
[2017-05-17] MEDS: DULoxetine 30 MG Cap PO SCH (08:12)
[2017-05-17] MEDS: LEDIPASVIR PO SCH (08:13)
[2017-05-17] MEDS: RIBAVIRIN 200 MG PO SCH (08:13)
[2017-05-17] MEDS: SOFOSBUVIR PO SCH (08:13)
[2017-05-17] MEDS: Linezolid 600 MG in Premix Bag 1 BAG IV SCH (15:17)
--- NOTE | 2017-05-17 16:12 | PCM.PN ---
- General Info Date of Service: 05/17/17 Functional Status: Reports: pain controlled, tolerating diet - Review of Systems General: Reports: No Symptoms HEENT: Reports: no symptoms Pulmonary: Reports: no symptoms Cardiovascular: Reports: No Symptoms Gastrointestinal: Reports: No symptoms Genitourinary: Reports: no symptoms Musculoskeletal: Reports: no symptoms Skin: Reports: no symptoms Neurological: Reports: No Symptoms Psychiatric: Reports: no symptoms - Patient Data Vitals - most recent: Last Vital Signs Temp 36.2 C 05/17/17 12:00 Pulse 88 05/17/17 12:00 Resp 22 H 05/17/17 12:00 BP 104/63 05/17/17 12:00 Pulse Ox 97 05/17/17 12:00 Weight - most recent: 72.983 kg I&O - last 24 hours: Intake & Output 05/17/17 05/17/17 05/17/17 06:59 14:59 22:59 Intake Total 7371 816 5940 Output Total 2000 950 Balance -900 100 150 Lab Results last 24 hrs: Laboratory Results - last 24 hr 05/16/17 05/17/17 05/17/17 Range/Units 18:20 06:39 06:39 WBC 4.57 5.98 (4.0-11.0) K/uL RBC 2.76 L 2.92 L (4.30-5.90) M/uL Hgb 8.3 L 8.8 L (12.0-16.0) g/dL Hct 26.4 L 27.8 L (36.0-46.0) % MCV 95.7 95.2 (80.0-98.0) fL MCH 30.1 30.1 (27.0-32.0) pg MCHC 31.4 31.7 (31.0-37.0) g/dL RDW Std Deviation 50.3 50.0 (28.0-62.0) fl RDW Coeff of Karlos 14 15 (11.0-15.0) % Plt Count 105 L 137 L (150-400) K/uL MPV 8.60 8.80 (7.40-12.00) fL Neut % (Auto) 58.4 (48.0-80.0) % Lymph % (Auto) 27.6 (16.0-40.0) % [place] % (Auto) 11.7 (0.0-15.0) % Eos % (Auto) 1.8 (0.0-7.0) % Baso % (Auto) 0.5 (0.0-1.5) % Neut # (Auto) 3.5 (1.4-5.7) K/uL Lymph # (Auto) 1.7 (0.6-2.4) K/uL [place] # (Auto) 0.7 (0.0-0.8) K/uL Eos # (Auto) 0.1 (0.0-0.7) K/uL Baso # (Auto) 0.0 (0.0-0.1) K/uL Nucleated RBC % 0.0 0.0 /100WBC Nucleated RBCs # 0 0 K/uL Sodium (136-146) mmol/L Potassium (3.5-5.1) mmol/L Chloride (98-110) mmol/L Carbon Dioxide (21-31) mmol/L BUN (6.0-23.0) mg/dL Creatinine (0.6-1.5) mg/dL Est Cr Clr Drug Dosing mL/min Estimated GFR (MDRD) ml/min Glucose (60-110) mg/dL Calcium (8.8-10.8) mg/dL Vancomycin Trough 23.3 H (5-15) ug/mL 05/17/17 Range/Units 06:39 WBC (4.0-11.0) K/uL RBC (4.30-5.90) M/uL Hgb (12.0-16.0) g/dL Hct (36.0-46.0) % MCV (80.0-98.0) fL MCH (27.0-32.0) pg MCHC (31.0-37.0) g/dL RDW Std Deviation (28.0-62.0) fl RDW Coeff of Karlos (11.0-15.0) % Plt Count (150-400) K/uL MPV (7.40-12.00) fL Neut % (Auto) (48.0-80.0) % Lymph % (Auto) (16.0-40.0) % [place] % (Auto) (0.0-15.0) % Eos % (Auto) (0.0-7.0) % Baso % (Auto) (0.0-1.5) % Neut # (Auto) (1.4-5.7) K/uL Lymph # (Auto) (0.6-2.4) K/uL [place] # (Auto) (0.0-0.8) K/uL Eos # (Auto) (0.0-0.7) K/uL Baso # (Auto) (0.0-0.1) K/uL Nucleated RBC % /100WBC Nucleated RBCs # K/uL Sodium 132 L (136-146) mmol/L Potassium 3.3 L (3.5-5.1) mmol/L Chloride 102 (98-110) mmol/L Carbon Dioxide 22 (21-31) mmol/L BUN 10 (6.0-23.0) mg/dL Creatinine 1.0 (0.6-1.5) mg/dL Est Cr Clr Drug Dosing 56.71 mL/min Estimated GFR (MDRD) 56.7 ml/min Glucose 98 (60-110) mg/dL Calcium 7.6 L (8.8-10.8) mg/dL Vancomycin Trough (5-15) ug/mL Nakul Results last 24 hrs: Microbiology 05/15/17 18:19 Urine Culture - Final Urine, Voided Staphylococcus Aureus Normal Urogenital Elvia 05/15/17 18:45 Aerobic Blood Culture - Preliminary Blood - Venous Anaerobic Blood Culture - Preliminary 05/15/17 18:45 Aerobic Blood Culture - Preliminary Blood - Venous - Lab Draw NO GROWTH AFTER 1 DAY Anaerobic Blood Culture - Preliminary Med Orders - Current: Current Medications Alprazolam (Xanax) 0.5 mg PO DAILY PRN PRN Reason: Anxiety Last Admin: 05/15/17 21:58 Dose: 0.5 mg Duloxetine HCl (Cymbalta) 90 mg PO DAILY [facility] Last Admin: 05/17/17 08:12 Dose: 90 mg Ampicillin Sodium/Sulbactam (Sodium 3 gm/ Sodium Chloride) 100 mls @ 200 mls/ hr IV Q6H [facility] Last Admin: 05/17/17 14:03 Dose: 200 mls/hr Linezolid 600 mg/ Premix 300 mls @ 300 mls/hr IV Q12H [facility] Last Admin: 05/17/17 15:17 Dose: 300 mls/hr Ibuprofen (Motrin) 200 mg PO Q6H PRN PRN Reason: Pain Last Admin: 05/15/17 21:42 Dose: 200 mg Ondansetron HCl (Zofran Odt) 4 mg PO Q4H PRN PRN Reason: nausea, able to take PO Ribavirin [ (Ribasphere] 200 Mg) 1 each PO DAILY [facility] Last Admin: 05/17/17 08:13 Dose: 1 each Ledipasvir/Sofosbuvir [Harvoni 90-400 Mg Tablet] 1 Tab 1 each PO DAILY [facility] Last Admin: 05/17/17 08:13 Dose: 1 each Potassium Bicarbonate (Klor-Con Ef) 25 meq PO DAILY [facility] Last Admin: 05/17/17 08:12 Dose: 25 meq Sodium Chloride (Saline Flush) 10 ml FLUSH ASDIRECTED PRN PRN Reason: Keep Vein Open Sodium Chloride (Saline Flush) 2.5 ml FLUSH ASDIRECTED PRN PRN Reason: Keep Vein Open Discontinued Medications Enoxaparin Sodium (Lovenox) 40 mg SUBCUT Q24H [facility] Last Admin: 05/15/17 19:02 Dose: 40 mg Ampicillin Sodium/Sulbactam (Sodium 3 gm/ Sodium Chloride) 100 mls @ 200 mls/ hr IV Q6H [facility] Last Admin: 05/15/17 20:06 Dose: Not Given Vancomycin HCl 1 gm/ Sodium (Chloride) 250 mls @ 166 mls/hr IV Q12H [facility] Last Admin: 05/17/17 08:27 Dose: Not Given Ampicillin Sodium/Sulbactam (Sodium 3 gm/ Sodium Chloride) 100 mls @ 200 mls/ hr IV Q6H [facility] Last Admin: 05/16/17 08:52 Dose: 200 mls/hr Vancomycin HCl 1 gm/ Sodium (Chloride) 250 mls @ 166 mls/hr IV Q24H [facility] Non-Formulary Medication (Ledipasvir/Sofosbuvir [Harvoni 90-400 Mg Tablet]) 1 tab PO DAILY [facility] Last Admin: 05/15/17 20:03 Dose: Not Given Vancomycin HCl (Pharmacy To Dose - Vancomycin) 0 dose .XX DAILY [facility] Last Admin: 05/17/17 11:04 Dose: Not Given - Exam Quality Assessment: No: supplemental oxygen, central line/PICC, urine catheter General: alert, oriented, cooperative, no acute distress HEENT: Pupils equal, Pupils reactive, EOMI Neck: supple, trachea midline, no JVD Lungs: Clear to auscultation, Normal respiratory effort Cardiovascular: Regular Rate, Regular Rhythm Abdomen: bowel sounds present, soft, no tenderness Extremities: edema, other (Erythema left ankle) Skin: warm, dry Neurological: no new focal deficit Psy/Mental Status: alert, normal affect, normal mood - Problem List & Annotations (1) Cellulitis of ankle SNOMED Code(s): 24115279 Code(s): L03.119 - CELLULITIS OF UNSPECIFIED PART OF LIMB Status: Acute Priority: High Current Visit: Yes Annotation/Comment:: On Zyvox (2) Bacteremia SNOMED Code(s): 9765733 Code(s): R78.81 - BACTEREMIA Status: Acute Priority: High Current Visit : Yes Annotation/Comment:: MSSA (3) UTI (urinary tract infection) SNOMED Code(s): 22819553 Code(s): N39.0 - URINARY TRACT INFECTION, SITE NOT SPECIFIED Status: Acute Current Visit: Yes Qualifiers: Hematuria presence: with hematuria (4) Hypoalbuminemia SNOMED Code(s): 382189106 Code(s): E88.09 - OTH DISORDERS OF PLASMA-PROTEIN METABOLISM, NEC Status: Chronic Priority: High Current Visit: Yes (5) Hx of hepatitis C SNOMED Code(s): 43093515724187, 50926447416722 Code(s): Z86.19 - PERSONAL HISTORY OF OTHER INFECTIOUS AND PARASITIC DISEASES Status: Chronic Priority: Medium Current Visit: Yes - Problem List Review Problem List Initiated/Reviewed/Updated: Yes - My Orders Last 24 Hours: My Active Orders 05/17/17 15:00 Linezolid [Zyvox] 600 mg Premix Bag 1 bag IV Q12H - Plan Plan:: 57 yo female with liver cirhosis admitted for bilateral cellulitis and UTI: improving blood cultures x 2: pending bilateral doppler us negative, uric acid wnl unasyn and vanco monitor VSS UA: positive nitrites, large leukoesterase, occult blood. await culture resume home medications: patient has her own medication harvani for HCV Dispo 1- 2 days May 17, 2017: The patient is a 57-year-old lady who was admitted to the hospital secondary to localized cellulitis of her ankle and she has a history of liver cirrhosis and had been previously treated for hepatitis C with Harvoni. The patient was seen in the clinic with her primary care physician was concerned about weakness and edema to her lower extremity. Patient then was admitted on May 15, 2017. The patient had blood cultures obtained which grew out today methicillin sensitive staph aureus and the patient had been previously on vancomycin. Today the patient says that she feels weak but she feels somewhat better and has been tolerating a diet. Is also noted that the patient's albumin was at 1.7 g/dL. This is likely the source of the patient's edema secondary to decreased oncotic pressure. The patient was also noted to have a urinalysis that was positive for leukoesterase and nitrites and occult blood. Patient's uric acid was normal and she was noted to be thrombocytopenic at 137,000 and a hemoglobin of 8.8 g/dL. The patient has some pain but she is doing well otherwise. The patient also has been tolerating diet. Based on the culture and sensitivity I discontinued the patient's vancomycin and placed her on Zyvox. I explained to the patient and her at Zyvox should get better tissue penetration to help with the infection. I've encouraged patient to ambulate. I'll see her on follow-up in my expect patient should be appropriate for discharge in 1-2 days.
[2017-05-18] MEDS: Ampicillin/Sulbactam Na 3 GM in Sodium Chloride 0.9% 100 ML IV SCH ×2 (02:54→08:51)
[2017-05-18] MEDS: Linezolid 600 MG in Premix Bag 1 BAG IV SCH ×2 (03:44→14:03)
[2017-05-18 06:33] LABS: CHLORIDE,CL 105 mmol/L (98-110); SODIUM,NA 136 mmol/L (136-146)
[2017-05-18] MEDS: RIBAVIRIN 200 MG PO SCH (08:50)
[2017-05-18] MEDS: SOFOSBUVIR PO SCH (08:50)
[2017-05-18] MEDS: Potassium Bicarbonate 25 MEQ Tab.EFF PO SCH (08:50)
[2017-05-18] MEDS: LEDIPASVIR PO SCH (08:50)
[2017-05-18] MEDS: DULoxetine 30 MG Cap PO SCH (08:50)
--- NOTE | 2017-05-18 15:45 | PCM.PN ---
- General Info Admission Dx/Problem (Free Text): Admission Diagnosis/Problem Admission Diagnosis/Problem Cellulitis Along with cirrhosis, hepatitis C, hypoalbuminemia, peripheral edema Functional Status: Reports: pain controlled, tolerating diet - Review of Systems General: Reports: Weakness, Fatigue. Denies: Appetite HEENT: Reports: no symptoms Pulmonary: Reports: no symptoms Cardiovascular: Reports: Edema Gastrointestinal: Reports: No symptoms Genitourinary: Reports: no symptoms Musculoskeletal: Reports: no symptoms Skin: Reports: no symptoms Neurological: Reports: No Symptoms Psychiatric: Reports: no symptoms - Patient Data Vitals - most recent: Last Vital Signs Temp 35.9 C 05/18/17 12:00 Pulse 84 05/18/17 12:00 Resp 22 H 05/18/17 12:00 BP 110/57 L 05/18/17 12:00 Pulse Ox 95 05/18/17 12:00 Weight - most recent: 71.985 kg I&O - last 24 hours: Intake & Output 05/18/17 05/18/17 05/18/17 06:59 14:59 22:59 Intake Total 900 400 Output Total 1450 Balance -550 400 Lab Results last 24 hrs: Laboratory Results - last 24 hr 05/18/17 05/18/17 Range/Units 05:54 05:54 WBC 3.91 L (4.0-11.0) K/uL RBC 2.67 L (4.30-5.90) M/uL Hgb 7.9 L (12.0-16.0) g/dL Hct 25.1 L (36.0-46.0) % MCV 94.0 (80.0-98.0) fL MCH 29.6 (27.0-32.0) pg MCHC 31.5 (31.0-37.0) g/dL RDW Std Deviation 48.4 (28.0-62.0) fl RDW Coeff of Karlos 14 (11.0-15.0) % Plt Count 103 L (150-400) K/uL MPV 8.60 (7.40-12.00) fL Neut % (Auto) 51.7 (48.0-80.0) % Lymph % (Auto) 32.2 (16.0-40.0) % [place] % (Auto) 12.8 (0.0-15.0) % Eos % (Auto) 2.8 (0.0-7.0) % Baso % (Auto) 0.5 (0.0-1.5) % Neut # (Auto) 2.0 (1.4-5.7) K/uL Lymph # (Auto) 1.3 (0.6-2.4) K/uL [place] # (Auto) 0.5 (0.0-0.8) K/uL Eos # (Auto) 0.1 (0.0-0.7) K/uL Baso # (Auto) 0.0 (0.0-0.1) K/uL Nucleated RBC % 0.0 /100WBC Nucleated RBCs # 0 K/uL Sodium 136 (136-146) mmol/L Potassium 3.0 L (3.5-5.1) mmol/L Chloride 105 (98-110) mmol/L Carbon Dioxide 24 (21-31) mmol/L BUN 8 (6.0-23.0) mg/dL Creatinine 0.9 (0.6-1.5) mg/dL Est Cr Clr Drug Dosing 63.01 mL/min Estimated GFR (MDRD) > 60.0 ml/min Glucose 83 (60-110) mg/dL Calcium 7.6 L (8.8-10.8) mg/dL Nakul Results last 24 hrs: Microbiology 05/15/17 18:45 Aerobic Blood Culture - Final Blood - Venous Anaerobic Blood Culture - Final Staphylococcus Aureus 05/15/17 18:45 Aerobic Blood Culture - Preliminary Blood - Venous - Lab Draw NO GROWTH AFTER 2 DAYS Anaerobic Blood Culture - Final Med Orders - Current: Current Medications Alprazolam (Xanax) 0.5 mg PO DAILY PRN PRN Reason: Anxiety Last Admin: 05/15/17 21:58 Dose: 0.5 mg Duloxetine HCl (Cymbalta) 90 mg PO DAILY [facility] Last Admin: 05/18/17 08:50 Dose: 90 mg Ibuprofen (Motrin) 200 mg PO Q6H PRN PRN Reason: Pain Last Admin: 05/15/17 21:42 Dose: 200 mg Linezolid (Zyvox) 600 mg PO Q12H [facility] Ondansetron HCl (Zofran Odt) 4 mg PO Q4H PRN PRN Reason: nausea, able to take PO Ribavirin [ (Ribasphere] 200 Mg) 1 each PO DAILY [facility] Last Admin: 05/18/17 08:50 Dose: 1 each Ledipasvir/Sofosbuvir [Harvoni 90-400 Mg Tablet] 1 Tab 1 each PO DAILY [facility] Last Admin: 05/18/17 08:50 Dose: 1 each Potassium Bicarbonate (Klor-Con Ef) 25 meq PO DAILY [facility] Last Admin: 05/18/17 08:50 Dose: 25 meq Sodium Chloride (Saline Flush) 10 ml FLUSH ASDIRECTED PRN PRN Reason: Keep Vein Open Sodium Chloride (Saline Flush) 2.5 ml FLUSH ASDIRECTED PRN PRN Reason: Keep Vein Open Discontinued Medications Enoxaparin Sodium (Lovenox) 40 mg SUBCUT Q24H [facility] Last Admin: 05/15/17 19:02 Dose: 40 mg Ampicillin Sodium/Sulbactam (Sodium 3 gm/ Sodium Chloride) 100 mls @ 200 mls/ hr IV Q6H [facility] Last Admin: 05/15/17 20:06 Dose: Not Given Vancomycin HCl 1 gm/ Sodium (Chloride) 250 mls @ 166 mls/hr IV Q12H [facility] Last Admin: 05/17/17 08:27 Dose: Not Given Ampicillin Sodium/Sulbactam (Sodium 3 gm/ Sodium Chloride) 100 mls @ 200 mls/ hr IV Q6H [facility] Last Admin: 05/16/17 08:52 Dose: 200 mls/hr Ampicillin Sodium/Sulbactam (Sodium 3 gm/ Sodium Chloride) 100 mls @ 200 mls/ hr IV Q6H [facility] Last Admin: 05/18/17 08:51 Dose: 200 mls/hr Vancomycin HCl 1 gm/ Sodium (Chloride) 250 mls @ 166 mls/hr IV Q24H [facility] Linezolid 600 mg/ Premix 300 mls @ 300 mls/hr IV Q12H [facility] Last Admin: 05/18/17 14:03 Dose: 300 mls/hr Non-Formulary Medication (Ledipasvir/Sofosbuvir [Harvoni 90-400 Mg Tablet]) 1 tab PO DAILY [facility] Last Admin: 05/15/17 20:03 Dose: Not Given Vancomycin HCl (Pharmacy To Dose - Vancomycin) 0 dose .XX DAILY [facility] Last Admin: 05/17/17 11:04 Dose: Not Given - Exam Quality Assessment: No: supplemental oxygen General: alert, oriented, cooperative, no acute distress HEENT: Pupils equal, Pupils reactive, EOMI. No: Scleral icterus Neck: supple, trachea midline, no JVD Lungs: Clear to auscultation, Normal respiratory effort Cardiovascular: Regular Rate, Regular Rhythm, No Murmurs Abdomen: bowel sounds present. No: rebound, guarding, tenderness Back Exam: Decreased Range of Motion Extremities: edema Skin: warm, dry, intact Neurological: no new focal deficit Psy/Mental Status: alert, normal affect - Problem List & Annotations (1) Cellulitis of ankle SNOMED Code(s): 38950456 Code(s): L03.119 - CELLULITIS OF UNSPECIFIED PART OF LIMB Status: Acute Priority: High Current Visit: Yes Annotation/Comment:: On Zyvox (2) Bacteremia SNOMED Code(s): 0218854 Code(s): R78.81 - BACTEREMIA Status: Acute Priority: High Current Visit : Yes Annotation/Comment:: MSSA (3) UTI (urinary tract infection) SNOMED Code(s): 81164419 Code(s): N39.0 - URINARY TRACT INFECTION, SITE NOT SPECIFIED Status: Acute Current Visit: Yes Qualifiers: Hematuria presence: with hematuria (4) Hypoalbuminemia SNOMED Code(s): 733131839 Code(s): E88.09 - OTH DISORDERS OF PLASMA-PROTEIN METABOLISM, NEC Status: Chronic Priority: High Current Visit: Yes (5) Hx of hepatitis C SNOMED Code(s): 71198630696374, 50313578123895 Code(s): Z86.19 - PERSONAL HISTORY OF OTHER INFECTIOUS AND PARASITIC DISEASES Status: Chronic Priority: Medium Current Visit: Yes - Problem List Review Problem List Initiated/Reviewed/Updated: Yes - My Orders Last 24 Hours: My Active Orders 05/19/17 03:00 Linezolid [Zyvox] 600 mg PO Q12H - Plan Plan:: 57 yo female with liver cirhosis admitted for bilateral cellulitis and UTI: improving blood cultures x 2: pending bilateral doppler us negative, uric acid wnl unasyn and vanco monitor VSS UA: positive nitrites, large leukoesterase, occult blood. await culture resume home medications: patient has her own medication harvani for HCV Dispo 1- 2 days May 17, 2017: The patient is a 57-year-old lady who was admitted to the hospital secondary to localized cellulitis of her ankle and she has a history of liver cirrhosis and had been previously treated for hepatitis C with Harvoni. The patient was seen in the clinic with her primary care physician was concerned about weakness and edema to her lower extremity. Patient then was admitted on May 15, 2017. The patient had blood cultures obtained which grew out today methicillin sensitive staph aureus and the patient had been previously on vancomycin. Today the patient says that she feels weak but she feels somewhat better and has been tolerating a diet. Is also noted that the patient's albumin was at 1.7 g/dL. This is likely the source of the patient's edema secondary to decreased oncotic pressure. The patient was also noted to have a urinalysis that was positive for leukoesterase and nitrites and occult blood. Patient's uric acid was normal and she was noted to be thrombocytopenic at 137,000 and a hemoglobin of 8.8 g/dL. The patient has some pain but she is doing well otherwise. The patient also has been tolerating diet. Based on the culture and sensitivity I discontinued the patient's vancomycin and placed her on Zyvox. I explained to the patient and her at Zyvox should get better tissue penetration to help with the infection. I've encouraged patient to ambulate. I'll see her on follow-up in my expect patient should be appropriate for discharge in 1-2 days. May 18, 2017:The patient is a 57-year-old lady who is admitted secondary to bilateral lower edema and cellulitis. She was admitted directly from primary care's office. The patient does have a history of hepatitis C and liver cirrhosis. The patient says that she feels somewhat better today and the swelling in her right leg isn't gone down considerably but she is still having pain in her left leg and foot. The patient also says that she has had swelling of her left hand and arm. The patient has denied any fever chills. No nausea or vomiting. Overall today the patient says that she is getting better and has no complaints. The patient has minimal pain today. The patient has had positive blood cultures consistent with methicillin sensitive staph aureus. The patient' s vancomycin has been discontinued and she was placed on Zyvox. The patient previously noted hyponatremia has resolved but she is hypokalemic still and this will be replaced. Patient's calcium is also a 7.6. The patient does have a low albumin of 1.7 and I suspect this is contributing to the decreased oncotic pressure which is causing the patient have problems with edema. I recommended that the patient continue with her current diet and ambulate to help with the edema. Her electrolytes will be replaced. The patient may be appropriate for discharge in 1-2 days to follow-up with podiatry professor in [place].
[2017-05-18] MEDS ORDERED: Potassium Bicarbonate 25 MEQ Tab.EFF PO SCH (16:15)
[2017-05-18] MEDS ORDERED: Calcium Gluconate 10% 1 GM/10 ML SDV IV ONE (16:30)
[2017-05-18] MEDS ORDERED: SODIUM CHLORIDE 0.9% IV ONE (17:30)
[2017-05-18] MEDS ORDERED: CALCIUM GLUCONATE IV ONE (17:30)
[2017-05-19] MEDS ORDERED: Linezolid 600 MG Tab PO SCH (03:00)
[2017-05-19 08:33] VITALS: BP 120/60
--- NOTE | 2017-05-19 08:37 | PCM.DCSUM1 ---
[id number] Text/Narrative:: 57-year-old female with history of hepatitis C virus and liver cirrhosis on harvoni admitted for localized cellulitis of left ankle and bilateral edema. He was treated with vancomycin and Zyvox. Upon improvement vancomycin was discontinued. Her blood cultures were positive for MSSA. During hospitalization she was noted to have element 1.7 which could be contributing to decreased oncotic pressure that may result in edema. Her electrolytes were monitored and replaced. Her pain has improved. She remained stable and discharged with po zyvox. She has appoinment scheduled with pcp and [facility]. - Discharge Data Discharge Date: 05/19/17 Discharge Disposition: Home, Self-Care 01 Condition: Good - Patient Instructions Diet: Regular Diet as Tolerated Activity: As Tolerated Driving: Do Not Drive Showering/Bathing: May Shower Notify Provider of: Fever, Increased Pain, Swelling and Redness, Drainage, Nausea and/or Vomiting - Discharge Plan Prescriptions/Med Rec: Linezolid [Zyvox] 600 mg PO Q12H #10 tablet Home Medications: Home Meds Ledipasvir/Sofosbuvir [Harvoni 90-400 mg Tablet] 1 tab PO DAILY 03/04/17 [ History] Ribavirin [Ribasphere] 200 mg PO DAILY 03/04/17 [History] ALPRAZolam [Alprazolam ODT] 0.5 mg PO ASDIRECTED PRN 03/06/17 [History] DULoxetine HCl [Duloxetine HCl] 90 mg PO DAILY 03/06/17 [History] Furosemide 20 mg PO DAILY 05/15/17 [History] Potassium Bicarbonate/Cit Ac [Potassium 25 Meq Tablet Eff] 1 tab PO DAILY [History] Linezolid [Zyvox] 600 mg PO Q12H #10 tablet 05/19/17 [Rx] Patient Handouts: Cellulitis, Adult, Linezolid tablets, Urinary Tract Infection , Adult, [id number], Bacteremia Referrals: Parish Sullivan MD [Physician] - 05/27/17 9:00 am - General Info Date of Service: 05/19/17 Functional Status: Reports: pain controlled, tolerating diet, ambulating, urinating - Review of Systems General: Reports: No Symptoms HEENT: Reports: no symptoms Pulmonary: Reports: no symptoms Cardiovascular: Reports: No Symptoms Gastrointestinal: Reports: No symptoms Genitourinary: Reports: no symptoms Musculoskeletal: Reports: other (bilateral edema) Skin: Reports: no symptoms Neurological: Reports: No Symptoms Psychiatric: Reports: no symptoms - Patient Data Vitals - Most Recent: Last Vital Signs Temp 96.3 F 05/19/17 08:00 Pulse 89 05/19/17 08:00 Resp 20 05/19/17 08:00 BP 120/60 05/19/17 08:00 Pulse Ox 97 05/19/17 08:00 Weight - Most Recent: 72.484 kg I&O - Last 24 hours: Intake & Output 05/18/17 05/19/17 05/19/17 22:59 06:59 14:59 Intake Total 1650 900 Output Total 1500 1950 Balance 150 -1050 Lab Results - Last 24 hrs: Laboratory Results - last 24 hr 05/19/17 05/19/17 Range/Units 05:45 05:45 WBC 4.13 (4.0-11.0) K/uL RBC 2.80 L (4.30-5.90) M/uL Hgb 8.3 L (12.0-16.0) g/dL Hct 26.4 L (36.0-46.0) % MCV 94.3 (80.0-98.0) fL MCH 29.6 (27.0-32.0) pg MCHC 31.4 (31.0-37.0) g/dL RDW Std Deviation 48.9 (28.0-62.0) fl RDW Coeff of Karlos 14 (11.0-15.0) % Plt Count 115 L (150-400) K/uL MPV 9.10 (7.40-12.00) fL Neut % (Auto) 51.1 (48.0-80.0) % Lymph % (Auto) 36.6 (16.0-40.0) % [place] % (Auto) 9.7 (0.0-15.0) % Eos % (Auto) 2.4 (0.0-7.0) % Baso % (Auto) 0.2 (0.0-1.5) % Neut # (Auto) 2.1 (1.4-5.7) K/uL Lymph # (Auto) 1.5 (0.6-2.4) K/uL [place] # (Auto) 0.4 (0.0-0.8) K/uL Eos # (Auto) 0.1 (0.0-0.7) K/uL Baso # (Auto) 0.0 (0.0-0.1) K/uL Nucleated RBC % 0.0 /100WBC Nucleated RBCs # 0 K/uL Sodium 138 (136-146) mmol/L Potassium 3.2 L (3.5-5.1) mmol/L Chloride 106 (98-110) mmol/L Carbon Dioxide 24 (21-31) mmol/L BUN 7 (6.0-23.0) mg/dL Creatinine 1.0 (0.6-1.5) mg/dL Est Cr Clr Drug Dosing 56.71 mL/min Estimated GFR (MDRD) 56.7 ml/min Glucose 69 (60-110) mg/dL Calcium 8.0 L (8.8-10.8) mg/dL RIGOBERTO Results - Last 24 hrs: Microbiology 05/19/17 03:30 Stool Occult Blood (RIGOBERTO) - Final Stool / Feces NEGATIVE OCCULT BLOOD 05/15/17 18:45 Aerobic Blood Culture - Preliminary Blood - Venous - Lab Draw NO GROWTH AFTER 3 DAYS Anaerobic Blood Culture - Final 05/15/17 18:45 Aerobic Blood Culture - Final Blood - Venous Anaerobic Blood Culture - Final Staphylococcus Aureus Med Orders - Current: Current Medications Alprazolam (Xanax) 0.5 mg PO DAILY PRN PRN Reason: Anxiety Last Admin: 05/15/17 21:58 Dose: 0.5 mg Duloxetine HCl (Cymbalta) 90 mg PO DAILY [facility] Last Admin: 05/18/17 08:50 Dose: 90 mg Ibuprofen (Motrin) 200 mg PO Q6H PRN PRN Reason: Pain Last Admin: 05/15/17 21:42 Dose: 200 mg Linezolid (Zyvox) 600 mg PO Q12H [facility] Last Admin: 05/19/17 03:41 Dose: 600 mg Ondansetron HCl (Zofran Odt) 4 mg PO Q4H PRN PRN Reason: nausea, able to take PO Ribavirin [ (Ribasphere] 200 Mg) 1 each PO DAILY [facility] Last Admin: 05/18/17 08:50 Dose: 1 each Ledipasvir/Sofosbuvir [Harvoni 90-400 Mg Tablet] 1 Tab 1 each PO DAILY [facility] Last Admin: 05/18/17 08:50 Dose: 1 each Potassium Bicarbonate (Klor-Con Ef) 25 meq PO DAILY [facility] Last Admin: 05/18/17 08:50 Dose: 25 meq Potassium Chloride (Potassium Chloride) 40 meq PO DAILY [facility] Sodium Chloride (Saline Flush) 10 ml FLUSH ASDIRECTED PRN PRN Reason: Keep Vein Open Sodium Chloride (Saline Flush) 2.5 ml FLUSH ASDIRECTED PRN PRN Reason: Keep Vein Open Discontinued Medications Enoxaparin Sodium (Lovenox) 40 mg SUBCUT Q24H [facility] Last Admin: 05/15/17 19:02 Dose: 40 mg Ampicillin Sodium/Sulbactam (Sodium 3 gm/ Sodium Chloride) 100 mls @ 200 mls/ hr IV Q6H [facility] Last Admin: 05/15/17 20:06 Dose: Not Given Vancomycin HCl 1 gm/ Sodium (Chloride) 250 mls @ 166 mls/hr IV Q12H [facility] Last Admin: 05/17/17 08:27 Dose: Not Given Ampicillin Sodium/Sulbactam (Sodium 3 gm/ Sodium Chloride) 100 mls @ 200 mls/ hr IV Q6H [facility] Last Admin: 05/16/17 08:52 Dose: 200 mls/hr Ampicillin Sodium/Sulbactam (Sodium 3 gm/ Sodium Chloride) 100 mls @ 200 mls/ hr IV Q6H [facility] Last Admin: 05/18/17 08:51 Dose: 200 mls/hr Vancomycin HCl 1 gm/ Sodium (Chloride) 250 mls @ 166 mls/hr IV Q24H [facility] Linezolid 600 mg/ Premix 300 mls @ 300 mls/hr IV Q12H [facility] Last Admin: 05/18/17 14:03 Dose: 300 mls/hr Calcium Gluconate 1 gm/ Sodium (Chloride) 510 mls @ 85 mls/hr IV ONETIME ONE Stop: 05/18/17 23:29 Last Infusion: 05/19/17 00:20 Dose: Infused Non-Formulary Medication (Ledipasvir/Sofosbuvir [Harvoni 90-400 Mg Tablet]) 1 tab PO DAILY [facility] Last Admin: 05/15/17 20:03 Dose: Not Given Potassium Bicarbonate (Klor-Con Ef) 25 meq PO DAILY [facility] Stop: 05/19/17 23:59 Last Admin: 05/18/17 17:12 Dose: 25 meq Vancomycin HCl (Pharmacy To Dose - Vancomycin) 0 dose .XX DAILY [facility] Last Admin: 05/17/17 11:04 Dose: Not Given - Exam General: Reports: alert, oriented, cooperative, no acute distress HEENT: Reports: Pupils equal, EOMI Neck: Reports: supple Lungs: Reports: Clear to auscultation, Normal respiratory effort Cardiovascular: Reports: Regular Rate, Regular Rhythm Extremities: Reports: edema (Lower extremity bilateral edema +3 . Left ) *Q Meaningful Use (DIS) - VTE *Q VTE Criteria *Q: - Stroke *Q Stroke Criteria *Q: - AMI *Q AMI Criteria *Q: <Virigl Miller - Last Filed: 05/27/17 09:05> Discharge Summary - Hospital Course Free Text/Narrative:: I was present with the resident during history and examination. I discussed the case with the resident and agree with the findings and plan as documented in the residents note. - Discharge Diagnosis/Problem(s) (1) Cellulitis of ankle SNOMED Code(s): 35630109 ICD Code: L03.119 - CELLULITIS OF UNSPECIFIED PART OF LIMB Status: Acute Priority: High Problem Details: On Zyvox (2) Bacteremia SNOMED Code(s): 2971501 ICD Code: R78.81 - BACTEREMIA Status: Acute Priority: High Problem Details: MSSA (3) UTI (urinary tract infection) SNOMED Code(s): 68672985 ICD Code: N39.0 - URINARY TRACT INFECTION, SITE NOT SPECIFIED Status: Acute (4) Hypoalbuminemia SNOMED Code(s): 172999670 ICD Code: E88.09 - OTH DISORDERS OF PLASMA-PROTEIN METABOLISM, NEC Status: Chronic Priority: High (5) Hx of hepatitis C SNOMED Code(s): 86581217777392, 79522270466072 ICD Code: Z86.19 - PERSONAL HISTORY OF OTHER INFECTIOUS AND PARASITIC DISEASES Status: Chronic Priority: Medium - Patient Data Vitals - Most Recent: Last Vital Signs Temp 35.7 C 05/19/17 08:00 Pulse 89 05/19/17 08:00 Resp 20 05/19/17 08:00 BP 120/60 05/19/17 08:00 Pulse Ox 97 05/19/17 08:00 Med Orders - Current: Current Medications Discontinued Medications Alprazolam (Xanax) 0.5 mg PO DAILY PRN PRN Reason: Anxiety Last Admin: 05/15/17 21:58 Dose: 0.5 mg Duloxetine HCl (Cymbalta) 90 mg PO DAILY [facility] Last Admin: 05/19/17 09:22 Dose: 90 mg Enoxaparin Sodium (Lovenox) 40 mg SUBCUT Q24H [facility] Last Admin: 05/15/17 19:02 Dose: 40 mg Ampicillin Sodium/Sulbactam (Sodium 3 gm/ Sodium Chloride) 100 mls @ 200 mls/ hr IV Q6H [facility] Last Admin: 05/15/17 20:06 Dose: Not Given Vancomycin HCl 1 gm/ Sodium (Chloride) 250 mls @ 166 mls/hr IV Q12H [facility] Last Admin: 05/17/17 08:27 Dose: Not Given Ampicillin Sodium/Sulbactam (Sodium 3 gm/ Sodium Chloride) 100 mls @ 200 mls/ hr IV Q6H [facility] Last Admin: 05/16/17 08:52 Dose: 200 mls/hr Ampicillin Sodium/Sulbactam (Sodium 3 gm/ Sodium Chloride) 100 mls @ 200 mls/ hr IV Q6H [facility] Last Admin: 05/18/17 08:51 Dose: 200 mls/hr Vancomycin HCl 1 gm/ Sodium (Chloride) 250 mls @ 166 mls/hr IV Q24H [facility] Linezolid 600 mg/ Premix 300 mls @ 300 mls/hr IV Q12H [facility] Last Admin: 05/18/17 14:03 Dose: 300 mls/hr Calcium Gluconate 1 gm/ Sodium (Chloride) 510 mls @ 85 mls/hr IV ONETIME ONE Stop: 05/18/17 23:29 Last Infusion: 05/19/17 00:20 Dose: Infused Ibuprofen (Motrin) 200 mg PO Q6H PRN PRN Reason: Pain Last Admin: 05/15/17 21:42 Dose: 200 mg Linezolid (Zyvox) 600 mg PO Q12H [facility] Last Admin: 05/19/17 03:41 Dose: 600 mg Non-Formulary Medication (Ledipasvir/Sofosbuvir [Harvoni 90-400 Mg Tablet]) 1 tab PO DAILY [facility] Last Admin: 05/15/17 20:03 Dose: Not Given Ondansetron HCl (Zofran Odt) 4 mg PO Q4H PRN PRN Reason: nausea, able to take PO Ribavirin [ (Ribasphere] 200 Mg) 1 each PO DAILY [facility] Last Admin: 05/19/17 09:23 Dose: 1 each Ledipasvir/Sofosbuvir [Harvoni 90-400 Mg Tablet] 1 Tab 1 each PO DAILY [facility] Last Admin: 05/19/17 09:23 Dose: 1 each Potassium Bicarbonate (Klor-Con Ef) 25 meq PO DAILY [facility] Last Admin: 05/19/17 09:22 Dose: 25 meq Potassium Bicarbonate (Klor-Con Ef) 25 meq PO DAILY [facility] Stop: 05/19/17 23:59 Last Admin: 05/18/17 17:12 Dose: 25 meq Potassium Chloride (Potassium Chloride) 40 meq PO DAILY [facility] Last Admin: 05/19/17 09:22 Dose: 40 meq Sodium Chloride (Saline Flush) 10 ml FLUSH ASDIRECTED PRN PRN Reason: Keep Vein Open Sodium Chloride (Saline Flush) 2.5 ml FLUSH ASDIRECTED PRN PRN Reason: Keep Vein Open Vancomycin HCl (Pharmacy To Dose - Vancomycin) 0 dose .XX DAILY [facility] Last Admin: 05/17/17 11:04 Dose: Not Given *Q Meaningful Use (DIS) - VTE *Q VTE Criteria *Q: - Stroke *Q Stroke Criteria *Q: - AMI *Q AMI Criteria *Q:
[2017-05-19] MEDS ORDERED: Potassium Chloride 10% 20 MEQ/15 ML Soln 30 ML UD Cup PO SCH (09:00)
[2017-05-19] MEDS: Potassium Bicarbonate 25 MEQ Tab.EFF PO SCH (09:22)
[2017-05-19] MEDS: DULoxetine 30 MG Cap PO SCH (09:22)
[2017-05-19] MEDS: LEDIPASVIR PO SCH (09:23)
[2017-05-19] MEDS: SOFOSBUVIR PO SCH (09:23)
[2017-05-19] MEDS: RIBAVIRIN 200 MG PO SCH (09:23)
== END 2017-05-19 10:36 | disposition home or self-care (01) | DRG 383 ==
LOC: MW.MS 16:41 → OBSVTOIN 17:56 → MW.MS 05-16 11:34
PROVIDERS: ADMIT Internal Medicine; ATTEND Internal Medicine
DX: L03.116 Cellulitis of left lower limb (principal); L03.115 Cellulitis of right lower limb; N39.0 Urinary tract infection, site not specified; B95.61 Methicillin susceptible Staphylococcus aureus infection as the cause of diseases classified elsewhere; E88.09 Other disorders of plasma-protein metabolism, not elsewhere classified; R60.9 Edema, unspecified; R78.81 Bacteremia; R00.0 Tachycardia, unspecified; R53.1 Weakness; K74.60 Unspecified cirrhosis of liver; F41.8 Other specified anxiety disorders; Z87.891 Personal history of nicotine dependence; Z79.899 Other long term (current) drug therapy; Z85.038 Personal history of other malignant neoplasm of large intestine; Z86.19 Personal history of other infectious and parasitic diseases; R74.8 Abnormal levels of other serum enzymes; B18.2 Chronic viral hepatitis C; D64.9 Anemia, unspecified
CPT/HCPCS: 36415; 80048; 80053; 80202; 81001; 82140; 82272; 82962; 83540; 83880; 84550; 85025; 85027; 85610; 85652; 85730; 86140; 87040; 87077; 87086; 87088; 87186; 93971-26-LT; 93971-26-RT; 93971-LT; 93971-RT; A9270-GY; J0295; J0610; J1650; J2020; J3370; J7030; J7040; J7050

== ENCOUNTER 2017-05-21 15:11 | Inpatient (IN) | payer BC ==
[2017-05-21] MEDS ORDERED: Sodium Chloride 0.9% 2.5 ML Syringe FLUSH PRN (15:13)
[2017-05-21] MEDS ORDERED: Sodium Chloride 0.9% 10 ML Syringe FLUSH PRN (15:13)
[2017-05-21] MEDS ORDERED: Sodium Chloride 0.9% 1,000 ML IV SCH (15:15)
--- NOTE | 2017-05-21 15:21 | EDM.PDOC ---
ED HPI GENERAL MEDICAL PROBLEM - General Chief Complaint: Neurological Problem Stated Complaint: INFECTION Time Seen by Provider: 05/21/17 15:12 - History of Present Illness INITIAL COMMENTS - FREE TEXT/NARRATIVE: HISTORY AND PHYSICAL: History of present illness: Patient 57-year-old female with history of hepatitis C whose had a recent hospitalization and has a history of intermittent altered mental status presumptively related to her liver disease who presents today with a concern of worsening confusion per her she denies fever chills nausea vomiting abdominal pain or other concern Review of systems: As per history of present illness and below otherwise all systems reviewed and negative. Past medical history: As per history of present illness and as reviewed below otherwise noncontributory. Surgical history: As per history of present illness and as reviewed below otherwise noncontributory. Social history: No reported history of drug or alcohol abuse. Family history: As per history of present illness and as reviewed below otherwise noncontributory. Physical exam: HEENT: Atraumatic, normocephalic, pupils reactive, mucous membranes moist, throat clear, neck supple, nontender, trachea midline. Lungs: Clear to auscultation, breath sounds equal bilaterally, chest nontender. Heart: S1S2, regular, negative for clicks, rubs, or JVD. Abdomen: Soft, nondistended, nontender. Negative for masses or hepatosplenomegaly. Negative for costovertebral tenderness. Pelvis: Stable nontender. Genitourinary: Deferred. Rectal: Deferred. Extremities: Atraumatic, negative for cords or calf pain. Neurovascular unremarkable. Neuro: Awake, confused will answer questions follow commands moves all extremities is limited grossly nonfocal exam Diagnostics: CBC CMP troponin PT/INR UA lactic acid ammonia urine drug screen EtOH chest x- ray EKG CT brain Therapeutics: IV O2 monitor Impression: #1 altered mental status #2 history of hepatitis C #3 rule out hepatic encephalopathy Definitive disposition and diagnosis as appropriate pending reevaluation and review of above. - Related Data Allergies Allergy/AdvReac Type Severity Reaction Status Date / Time adhesive Allergy Rash Verified 05/21/17 15:17 Home Meds: Home Meds Ledipasvir/Sofosbuvir [Harvoni 90-400 mg Tablet] 1 tab PO DAILY 03/04/17 [ History] Ribavirin [Ribasphere] 200 mg PO DAILY 03/04/17 [History] ALPRAZolam [Alprazolam ODT] 0.5 mg PO ASDIRECTED PRN 03/06/17 [History] DULoxetine HCl [Duloxetine HCl] 90 mg PO DAILY 03/06/17 [History] Furosemide 20 mg PO DAILY 05/15/17 [History] Potassium Bicarbonate/Cit Ac [Potassium 25 Meq Tablet Eff] 1 tab PO DAILY [History] Linezolid [Zyvox] 600 mg PO Q12H #10 tablet 05/19/17 [Rx] Past Medical History - Past Health History Medical/Surgical History: Denies Medical/Surgical History HEENT History: Reports: Impaired Vision, Other (See Below) Other HEENT History: wear glasses Cardiovascular History: Reports: None Respiratory History: Reports: SOB Gastrointestinal History: Reports: Other (See Below) Other Gastrointestinal History: Colon CA. 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 History: Reports: None [employer] History: Reports: Musculoskeletal History: Reports: None Other Musculoskeletal History: hx: fractured Right Upper Femur with plate and screws Neurological History: Reports: None Psychiatric History: Reports: Anxiety, Bipolar, Depression Endocrine/Metabolic History: Reports: None Other Endocrine/Metabolic History: Current history indicates elevated Glucose Hematologic History: Reports: Blood Transfusion(s) Oncologic (Cancer) History: Reports: Colon Dermatologic History: Reports: None - Infectious Disease History Infectious Disease History: Reports: Hepatitis C, Influenza - Past Surgical History HEENT Surgical History: Reports: Tonsillectomy Respiratory Surgical History: Reports: None GI Surgical History: Reports: Cholecystectomy, Other (See Below) Other GI Surgeries/Procedures: Tummy Tuck Musculoskeletal Surgical History: Reports: Other (See Below) Other Musculoskeletal Surgeries/Procedures:: Right femur surgery with plates and screws Oncologic Surgical History: Reports: None Social & Family History - Family History Family Medical History: Noncontributory - Tobacco Use Smoking Status *Q: Former Smoker Years of Tobacco use: 20 Used Tobacco, but Quit: No Month Tobacco Last Used: quit 23 years ago Second Hand Smoke Exposure: Yes - Caffeine Use Caffeine Use: Reports: Soda - Alcohol Use Days Per Week of Alcohol Use: 1 Number of Drinks Per Day: 2 Total Drinks Per Week: 2 - Recreational Drug Use Recreational Drug Use: Yes Drug Use in Last 12 Months: Yes Recreational Drug Type: Reports: Marijuana/Hashish Recreational Drug Use Frequency: Daily ED ROS GENERAL - Review of Systems Review Of Systems: ROS reveals no pertinent complaints other than HPI. ED EXAM, GENERAL - Physical Exam Exam: See Below (See dictation) Course - Vital Signs Last Recorded V/S: Last Vital Signs Temp 37.1 C 05/21/17 15:18 Pulse 90 05/21/17 15:18 Resp 25 H 05/21/17 17:29 BP 143/74 H 05/21/17 17:29 Pulse Ox 97 05/21/17 17:29 - Orders/Labs/Meds Orders: Active Orders 24 hr Category Date Time Status Cardiac Monitoring [RC] . DIRECTED Care 05/21/17 15:13 Active EKG Documentation Completion [RC] STAT Care 05/21/17 15:13 Active Oxygen Therapy, ED [RC] ASDIRECTED Care 05/21/17 15:13 Active Pulse Oximetry [RC] ASDIRECTED Care 05/21/17 15:13 Active CULTURE BLOOD [BC] Stat Lab 05/21/17 15:34 Received CULTURE BLOOD [BC] Stat Lab 05/21/17 17:01 Received Levofloxacin/Dextrose 5%-Water [Levaquin in D5W 750 MG/ Med 05/21/17 16:49 Active 150 ML] 750 mg Premix Bag 1 bag IV ONETIME Sodium Chloride 0.9% [Normal Saline] 1,000 ml Med 05/21/17 15:15 Active IV STAT Sodium Chloride 0.9% [Saline Flush] Med 05/21/17 15:13 Active 10 ml FLUSH ASDIRECTED PRN Sodium Chloride 0.9% [Saline Flush] Med 05/21/17 15:13 Active 2.5 ml FLUSH ASDIRECTED PRN Vancomycin [Vancocin] 1 gm Med 05/21/17 16:49 Active Sodium Chloride 0.9% [Normal Saline] 250 ml IV ONETIME Blood Culture x2 Reflex Set [OM.PC] Stat Oth 05/21/17 16:48 Ordered Saline Lock Insert [OM.PC] Stat Oth 05/21/17 15:13 Ordered Medication Orders Sodium Chloride (Normal Saline) 1,000 mls @ 125 mls/hr IV STAT CORINNE Last Admin: 05/21/17 15:34 Dose: 125 mls/hr Levofloxacin/Dextrose 750 mg/ (Premix) 150 mls @ 100 mls/hr IV ONETIME ONE Stop: 05/21/17 18:18 Vancomycin HCl 1 gm/ Sodium (Chloride) 250 mls @ 250 mls/hr IV ONETIME ONE Stop: 05/21/17 17:48 Last Admin: 05/21/17 17:25 Dose: 250 mls/hr Sodium Chloride (Saline Flush) 10 ml FLUSH ASDIRECTED PRN PRN Reason: Keep Vein Open Sodium Chloride (Saline Flush) 2.5 ml FLUSH ASDIRECTED PRN PRN Reason: Keep Vein Open Labs: Laboratory Tests 05/21/17 05/21/17 05/21/17 Range/Units 15:34 15:34 15:34 WBC 6.07 (4.0-11.0) K/uL RBC 2.87 L (4.30-5.90) M/uL Hgb 8.6 L (12.0-16.0) g/dL Hct 26.8 L (36.0-46.0) % MCV 93.4 (80.0-98.0) fL MCH 30.0 (27.0-32.0) pg MCHC 32.1 (31.0-37.0) g/dL RDW Std Deviation 49.0 (28.0-62.0) fl RDW Coeff of Karlos 14 (11.0-15.0) % Plt Count 120 L (150-400) K/uL MPV 8.50 (7.40-12.00) fL Neut % (Auto) 58.8 (48.0-80.0) % Lymph % (Auto) 32.3 (16.0-40.0) % Johnston % (Auto) 7.6 (0.0-15.0) % Eos % (Auto) 0.8 (0.0-7.0) % Baso % (Auto) 0.5 (0.0-1.5) % Neut # (Auto) 3.6 (1.4-5.7) K/uL Lymph # (Auto) 2.0 (0.6-2.4) K/uL Johnston # (Auto) 0.5 (0.0-0.8) K/uL Eos # (Auto) 0.1 (0.0-0.7) K/uL Baso # (Auto) 0.0 (0.0-0.1) K/uL Nucleated RBC % 0.0 /100WBC Nucleated RBCs # 0 K/uL INR 1.41 H (0.86-1.11) Lactate 3.3 H (0.20-2.00) mmol/L Sodium (136-146) mmol/L Potassium (3.5-5.1) mmol/L Chloride (98-110) mmol/L Carbon Dioxide (21-31) mmol/L BUN (6.0-23.0) mg/dL Creatinine (0.6-1.5) mg/dL Est Cr Clr Drug Dosing mL/min Estimated GFR (MDRD) ml/min Glucose (60-110) mg/dL Calcium (8.8-10.8) mg/dL Total Bilirubin (0.1-1.5) mg/dL AST (5-40) IU/L ALT (8-54) IU/L Alkaline Phosphatase (40-150) Ammonia (14-68) UG/DL Troponin I (0.0-0.29) NG/ML Total Protein (6.0-8.0) g/dL Albumin (3.5-5.0) g/dL Globulin (2.0-3.5) g/dL Albumin/Globulin Ratio (1.3-2.8) Urine Color Urine Appearance Urine pH (5.0-8.0) Ur Specific [place] (1.001-1.035) Urine Protein (NEGATIVE) mg/dL Urine Glucose (UA) (NEGATIVE) mg/dL Urine Ketones (NEGATIVE) mg/dL Urine Occult Blood (NEGATIVE) Urine Nitrite (NEGATIVE) Urine Bilirubin (NEGATIVE) Urine Urobilinogen (<2.0) EU/dL Ur Leukocyte Esterase (NEGATIVE) Urine RBC (0-2/HPF) Urine WBC (0-5/HPF) Ur Epithelial Cells (NONE-FEW) Urine Bacteria (NEGATIVE) Hyaline Casts (0-2/LPF) Urine Mucus (NONE-MOD) Urine Opiates Screen (NEGATIVE) Ur Oxycodone Screen (NEGATIVE) Urine Methadone Screen (NEGATIVE) Ur Barbiturates Screen (NEGATIVE) Ur Phencyclidine Scrn (NEGATIVE) Ur Amphetamine Screen (NEGATIVE) U Methamphetamines Scrn (NEGATIVE) U Benzodiazepines Scrn (NEGATIVE) U Cocaine Metab Screen (NEGATIVE) U Marijuana (THC) Screen (NEGATIVE) Ethyl Alcohol mg/dL 05/21/17 05/21/17 05/21/17 Range/Units 15:34 15:34 15:34 WBC (4.0-11.0) K/uL RBC (4.30-5.90) M/uL Hgb (12.0-16.0) g/dL Hct (36.0-46.0) % MCV (80.0-98.0) fL MCH (27.0-32.0) pg MCHC (31.0-37.0) g/dL RDW Std Deviation (28.0-62.0) fl RDW Coeff of Karlos (11.0-15.0) % Plt Count (150-400) K/uL MPV (7.40-12.00) fL Neut % (Auto) (48.0-80.0) % Lymph % (Auto) (16.0-40.0) % Johnston % (Auto) (0.0-15.0) % Eos % (Auto) (0.0-7.0) % Baso % (Auto) (0.0-1.5) % Neut # (Auto) (1.4-5.7) K/uL Lymph # (Auto) (0.6-2.4) K/uL Johnston # (Auto) (0.0-0.8) K/uL Eos # (Auto) (0.0-0.7) K/uL Baso # (Auto) (0.0-0.1) K/uL Nucleated RBC % /100WBC Nucleated RBCs # K/uL INR (0.86-1.11) Lactate (0.20-2.00) mmol/L Sodium 138 (136-146) mmol/L Potassium 3.4 L (3.5-5.1) mmol/L Chloride 108 (98-110) mmol/L Carbon Dioxide 20 L (21-31) mmol/L BUN 8 (6.0-23.0) mg/dL Creatinine 1.2 (0.6-1.5) mg/dL Est Cr Clr Drug Dosing 47.25 mL/min Estimated GFR (MDRD) 46.0 ml/min Glucose 101 (60-110) mg/dL Calcium 7.9 L (8.8-10.8) mg/dL Total Bilirubin 1.6 H (0.1-1.5) mg/dL AST 32 (5-40) IU/L ALT 15 (8-54) IU/L Alkaline Phosphatase 67 (40-150) Ammonia 75 H (14-68) UG/DL Troponin I < 0.10 (0.0-0.29) NG/ML Total Protein 7.1 (6.0-8.0) g/dL Albumin 2.1 L (3.5-5.0) g/dL Globulin 5.0 H (2.0-3.5) g/dL Albumin/Globulin Ratio 0.4 L (1.3-2.8) Urine Color Urine Appearance Urine pH (5.0-8.0) Ur Specific [place] (1.001-1.035) Urine Protein (NEGATIVE) mg/dL Urine Glucose (UA) (NEGATIVE) mg/dL Urine Ketones (NEGATIVE) mg/dL Urine Occult Blood (NEGATIVE) Urine Nitrite (NEGATIVE) Urine Bilirubin (NEGATIVE) Urine Urobilinogen (<2.0) EU/dL Ur Leukocyte Esterase (NEGATIVE) Urine RBC (0-2/HPF) Urine WBC (0-5/HPF) Ur Epithelial Cells (NONE-FEW) Urine Bacteria (NEGATIVE) Hyaline Casts (0-2/LPF) Urine Mucus (NONE-MOD) Urine Opiates Screen (NEGATIVE) Ur Oxycodone Screen (NEGATIVE) Urine Methadone Screen (NEGATIVE) Ur Barbiturates Screen (NEGATIVE) Ur Phencyclidine Scrn (NEGATIVE) Ur Amphetamine Screen (NEGATIVE) U Methamphetamines Scrn (NEGATIVE) U Benzodiazepines Scrn (NEGATIVE) U Cocaine Metab Screen (NEGATIVE) U Marijuana (THC) Screen (NEGATIVE) Ethyl Alcohol < 10.0 mg/dL 05/21/17 05/21/17 Range/Units 17:15 17:15 WBC (4.0-11.0) K/uL RBC (4.30-5.90) M/uL Hgb (12.0-16.0) g/dL Hct (36.0-46.0) % MCV (80.0-98.0) fL MCH (27.0-32.0) pg MCHC (31.0-37.0) g/dL RDW Std Deviation (28.0-62.0) fl RDW Coeff of Karlos (11.0-15.0) % Plt Count (150-400) K/uL MPV (7.40-12.00) fL Neut % (Auto) (48.0-80.0) % Lymph % (Auto) (16.0-40.0) % Johnston % (Auto) (0.0-15.0) % Eos % (Auto) (0.0-7.0) % Baso % (Auto) (0.0-1.5) % Neut # (Auto) (1.4-5.7) K/uL Lymph # (Auto) (0.6-2.4) K/uL Johnston # (Auto) (0.0-0.8) K/uL Eos # (Auto) (0.0-0.7) K/uL Baso # (Auto) (0.0-0.1) K/uL Nucleated RBC % /100WBC Nucleated RBCs # K/uL INR (0.86-1.11) Lactate (0.20-2.00) mmol/L Sodium (136-146) mmol/L Potassium (3.5-5.1) mmol/L Chloride (98-110) mmol/L Carbon Dioxide (21-31) mmol/L BUN (6.0-23.0) mg/dL Creatinine (0.6-1.5) mg/dL Est Cr Clr Drug Dosing mL/min Estimated GFR (MDRD) ml/min Glucose (60-110) mg/dL Calcium (8.8-10.8) mg/dL Total Bilirubin (0.1-1.5) mg/dL AST (5-40) IU/L ALT (8-54) IU/L Alkaline Phosphatase (40-150) Ammonia (14-68) UG/DL Troponin I (0.0-0.29) NG/ML Total Protein (6.0-8.0) g/dL Albumin (3.5-5.0) g/dL Globulin (2.0-3.5) g/dL Albumin/Globulin Ratio (1.3-2.8) Urine Color DARK YELLOW Urine Appearance CLOUDY Urine pH 6.0 (5.0-8.0) Ur Specific [place] 1.015 (1.001-1.035) Urine Protein TRACE (NEGATIVE) mg/dL Urine Glucose (UA) NEGATIVE (NEGATIVE) mg/dL Urine Ketones NEGATIVE (NEGATIVE) mg/dL Urine Occult Blood LARGE H (NEGATIVE) Urine Nitrite NEGATIVE (NEGATIVE) Urine Bilirubin NEGATIVE (NEGATIVE) Urine Urobilinogen 0.2 (<2.0) EU/dL Ur Leukocyte Esterase TRACE (NEGATIVE) Urine RBC 15-20 (0-2/HPF) Urine WBC 3-5 (0-5/HPF) Ur Epithelial Cells FEW (NONE-FEW) Urine Bacteria 2+ H (NEGATIVE) Hyaline Casts 2-3 (0-2/LPF) Urine Mucus MODERATE (NONE-MOD) Urine Opiates Screen NEGATIVE (NEGATIVE) Ur Oxycodone Screen NEGATIVE (NEGATIVE) Urine Methadone Screen NEGATIVE (NEGATIVE) Ur Barbiturates Screen NEGATIVE (NEGATIVE) Ur Phencyclidine Scrn NEGATIVE (NEGATIVE) Ur Amphetamine Screen NEGATIVE (NEGATIVE) U Methamphetamines Scrn NEGATIVE (NEGATIVE) U Benzodiazepines Scrn NEGATIVE (NEGATIVE) U Cocaine Metab Screen NEGATIVE (NEGATIVE) U Marijuana (THC) Screen NEGATIVE (NEGATIVE) Ethyl Alcohol mg/dL Meds: Medications Generic Name Dose Route Start Last Admin Trade Name Freq PRN Reason Stop Dose Admin Sodium Chloride 1,000 mls @ 125 mls/hr 05/21/17 15:15 05/21/17 15:34 Normal Saline IV 125 mls/hr STAT CORINNE Administration Levofloxacin/Dextrose 750 mg/ 150 mls @ 100 mls/hr 05/21/17 16:49 Premix IV 05/21/17 18:18 ONETIME ONE Vancomycin HCl 1 gm/ Sodium 250 mls @ 250 mls/hr 05/21/17 16:49 05/21/17 17: 25 Chloride IV 05/21/17 17:48 250 mls/hr ONETIME ONE Administration Sodium Chloride 10 ml 05/21/17 15:13 Saline Flush FLUSH ASDIRECTED PRN Keep Vein Open Sodium Chloride 2.5 ml 05/21/17 15:13 Saline Flush FLUSH ASDIRECTED PRN Keep Vein Open Departure - Departure Time of Disposition: 17:41 Disposition: Admitted As Inpatient 64 Condition: Good Clinical Impression: Altered mental status, Pulmonary infiltrate, Hepatic encephalopathy UTI (urinary tract infection) Qualifiers: Hematuria presence: with hematuria - Discharge Information Forms: ED Department Discharge - My Orders Last 24 Hours: My Active Orders 05/21/17 15:13 Cardiac Monitoring [RC] . DIRECTED EKG Documentation Completion [RC] STAT Oxygen Therapy, ED [RC] ASDIRECTED Pulse Oximetry [RC] ASDIRECTED Sodium Chloride 0.9% [Saline Flush] 10 ml FLUSH ASDIRECTED PRN Sodium Chloride 0.9% [Saline Flush] 2.5 ml FLUSH ASDIRECTED PRN Saline Lock Insert [OM.PC] Stat 05/21/17 15:15 Sodium Chloride 0.9% [Normal Saline] 1,000 ml IV STAT 05/21/17 15:34 CULTURE BLOOD [BC] Stat 05/21/17 16:48 Blood Culture x2 Reflex Set [OM.PC] Stat 05/21/17 16:49 Levofloxacin/Dextrose 5%-Water [Levaquin in D5W 750 MG/150 ML] 750 mg Premix Bag 1 bag IV ONETIME Vancomycin [Vancocin] 1 gm Sodium Chloride 0.9% [Normal Saline] 250 ml IV ONETIME 05/21/17 17:01 CULTURE BLOOD [BC] Stat - Assessment/Plan Last 24 Hours: My Active Orders 05/21/17 15:13 Cardiac Monitoring [RC] . DIRECTED EKG Documentation Completion [RC] STAT Oxygen Therapy, ED [RC] ASDIRECTED Pulse Oximetry [RC] ASDIRECTED Sodium Chloride 0.9% [Saline Flush] 10 ml FLUSH ASDIRECTED PRN Sodium Chloride 0.9% [Saline Flush] 2.5 ml FLUSH ASDIRECTED PRN Saline Lock Insert [OM.PC] Stat 05/21/17 15:15 Sodium Chloride 0.9% [Normal Saline] 1,000 ml IV STAT 05/21/17 15:34 CULTURE BLOOD [BC] Stat 05/21/17 16:48 Blood Culture x2 Reflex Set [OM.PC] Stat 05/21/17 16:49 Levofloxacin/Dextrose 5%-Water [Levaquin in D5W 750 MG/150 ML] 750 mg Premix Bag 1 bag IV ONETIME Vancomycin [Vancocin] 1 gm Sodium Chloride 0.9% [Normal Saline] 250 ml IV ONETIME 05/21/17 17:01 CULTURE BLOOD [BC] Stat
--- NOTE | 2017-05-21 16:18 | CT ---
EXAMINATION: Non contrast CT head. Coronal and sagittal reformats. HISTORY: Pain FINDINGS: No evidence of intra or extra axial hemorrhage, mass, midline shift, hydrocephalus or edema. No hypoattenuation changes in the major vascular territories to suggest acute infarct. No abnormal intracranial calcifications are detected. No evidence of substantial vascular calcifica tions. Paranasal sinuses and mastoid air cells are well aerated without substantial findings. The orbits a nd globes are symmetric. Pituitary fossa appears unremarkable. Calvarium is intact. No evidence of skull fracture. IMPRESSION: No acute intracranial findings.
--- NOTE | 2017-05-21 16:21 | CR ---
EXAMINATION: Portable chest radiograph. HISTORY: Shortness of breath. COMPARISON: CT chest dated 04/08/2017 FINDINGS: The trachea is midline. The cardiomediastinal silhouette is within normal limits. Mild left basilar atelectasis and/or infiltrate. Osseous structures appear unremarkable. IMPRESSION: Mild left basilar atelectasis and/or infiltrate. Pneumonia is not excluded.
[2017-05-21 16:37] LABS: CHLORIDE,CL 108 mmol/L (98-110); SODIUM,NA 138 mmol/L (136-146)
[2017-05-21] MEDS ORDERED: Levofloxacin/Dextrose 5%-Water 750 MG in Premix Bag 1 BAG IV ONE (16:49)
[2017-05-21] MEDS ORDERED: ALPRAZolam 0.5 MG Tab PO PRN (19:32)
--- NOTE | 2017-05-21 19:39 | PCM.HP ---
H&P History of Present Illness - General Date of Service: 05/21/17 Admit Problem/Dx: Admission Diagnosis/Problem Admission Diagnosis/Problem Altered mental status Source of Information: Patient, Family, Old Records, Provider - History of Present Illness Initial Comments - Free Text/Narative: She presented to the ED today with complaint of increased confusion. She was discharged from [facility] in [place] on po zyvox on May 19, 2017. Blood culture drawn on 05/15/2017 grew Methicillin sensitive Staphylococcus Aureus. I did not find any echocardiogram reports done during the recent admission. She sees Dr Payne, infectious disease, in [place] for a history of hepatitis C with liver failure. In the ED it was noted that her lactic acid was elevated and there was bacteruria noted on her urinalysis. Her CXR showed possible LLL infiltrate. Her INR was elevated at 1.4. - Related Data Allergies/Adverse Reactions: Allergies Allergy/AdvReac Type Severity Reaction Status Date / Time adhesive Allergy Rash Verified 05/21/17 15:17 Home Medications: Home Meds Ledipasvir/Sofosbuvir [Harvoni 90-400 mg Tablet] 1 tab PO DAILY 03/04/17 [ History] Ribavirin [Ribasphere] 200 mg PO DAILY 03/04/17 [History] ALPRAZolam [Alprazolam ODT] 0.5 mg PO ASDIRECTED PRN 03/06/17 [History] DULoxetine HCl [Duloxetine HCl] 90 mg PO DAILY 03/06/17 [History] Furosemide 20 mg PO DAILY 05/15/17 [History] Potassium Bicarbonate/Cit Ac [Potassium 25 Meq Tablet Eff] 1 tab PO DAILY [History] Linezolid [Zyvox] 600 mg PO Q12H #10 tablet 05/19/17 [Rx] Past Medical History - Past Health History Medical/Surgical History: Denies Medical/Surgical History HEENT History: Reports: Impaired Vision, Other (See Below) Other HEENT History: wear glasses Cardiovascular History: Reports: None. Denies: CAD, Heart Failure Respiratory History: Denies: COPD Gastrointestinal History: Reports: Other (See Below) Other Gastrointestinal History: Colon CA. 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: Musculoskeletal History: Reports: None Other Musculoskeletal History: hx: fractured Right Upper Femur with plate and screws Neurological History: Reports: None Psychiatric History: Reports: Anxiety, Bipolar, Depression Endocrine/Metabolic History: Reports: None Other Endocrine/Metabolic History: Current history indicates elevated Glucose Hematologic History: Reports: Blood Transfusion(s) Oncologic (Cancer) History: Reports: Colon Dermatologic History: Reports: None - Infectious Disease History Infectious Disease History: Reports: Hepatitis C, Influenza, Mumps - Past Surgical History HEENT Surgical History: Reports: Tonsillectomy Respiratory Surgical History: Reports: None GI Surgical History: Reports: Cholecystectomy, Other (See Below) (she underwent partial colectomy for colon cancer) Other GI Surgeries/Procedures: Tummy Tuck Musculoskeletal Surgical History: Reports: Other (See Below) Other Musculoskeletal Surgeries/Procedures:: Right femur surgery with plates and screws Oncologic Surgical History: Reports: None Social & Family History - Family History Family Medical History: Noncontributory - Tobacco Use Smoking Status *Q: Former Smoker Years of Tobacco use: 20 Used Tobacco, but Quit: Yes Month Tobacco Last Used: 25 years ago Second Hand Smoke Exposure: No - Caffeine Use Caffeine Use: Reports: Coffee, Tea - Alcohol Use Days Per Week of Alcohol Use: 1 Number of Drinks Per Day: 2 Total Drinks Per Week: 2 Alcohol Use Comment: Her family advised me that she no longer drinks alcohol - Recreational Drug Use Recreational Drug Use: No Drug Use in Last 12 Months: Yes Recreational Drug Type: Reports: Marijuana/Hashish Recreational Drug Use Frequency: Daily H&P Review of Systems - Review of Systems: Review Of Systems: See Below General: Reports: Weakness. Denies: Fever, Chills Pulmonary: Reports: Shortness of Breath (not currently short of breath but she has had some periods of dyspnea at times that the family relates to anxiety). Denies: Wheezing Cardiovascular: Reports: Edema. Denies: Chest Pain Gastrointestinal: Denies: Abdominal Pain, Black Stool, Bloody Stool, Decreased Appetite, Hematemesis Genitourinary: Denies: Dysuria, Frequency, Hematuria Psychiatric: Reports: Confusion Exam - Exam Exam: See Below - Vital Signs Vital Signs: Last Vital Signs Temp 98.2 F 05/21/17 18:44 Pulse 88 05/21/17 18:44 Resp 22 H 05/21/17 18:44 BP 124/71 05/21/17 18:44 Pulse Ox 94 L 05/21/17 18:44 Weight: 72 kg - Exam General: Alert, Cooperative HEENT: Mucosa Moist & [place] Neck: Trachea Midline Lungs: Clear to Auscultation, Normal Respiratory Effort Cardiovascular: Regular Rate, Regular Rhythm Abdomen: Soft. No: Peritoneal Signs, Distention, Guarding, Tenderness (Female) Exam: Deferred Rectal (Female) Exam: Deferred Extremities: Edema (1 plus ankle and pretibial edema) Neuro Extensive - Mental Status: Alert. No: Oriented x3 (she cannot tell me the day, month or year. She cannot tell me where she is. She can tell me the name of her daughter but cannot specify how she is related. ) Neuro Extensive - Motor, Sensory, Reflexes: No: Hemeplagia (R), Hemeplagia (L) Psychiatric: No: Agitated Physical Exam Comments:: bilateral ankle clonus fine tremor both hands/wrists - Patient Data Result Diagrams: 05/21/17 15:34 05/21/17 15:34 *Q Meaningful Use (ADM) - VTE *Q VTE Criteria *Q: - Stroke *Q Stroke Criteria *Q: - AMI *Q AMI Criteria *Q: - Problem List (1) Altered mental status SNOMED Code(s): 862803136 ICD Code: R41.82 - ALTERED MENTAL STATUS, UNSPECIFIED Status: Acute Current Visit: Yes (2) Hepatic encephalopathy SNOMED Code(s): 01438977 ICD Code: K72.90 - HEPATIC FAILURE, UNSPECIFIED WITHOUT COMA Status: Acute Current Visit: Yes (3) Pulmonary infiltrate SNOMED Code(s): 789595846 ICD Code: R91.8 - OTHER NONSPECIFIC ABNORMAL FINDING OF LUNG FIELD Status: Acute Current Visit: Yes (4) UTI (urinary tract infection) SNOMED Code(s): 74488533 ICD Code: N39.0 - URINARY TRACT INFECTION, SITE NOT SPECIFIED Status: Acute Current Visit: Yes (5) Bacteremia SNOMED Code(s): 6619437 ICD Code: R78.81 - BACTEREMIA Status: Acute Priority: High Current Visit: No Problem Details: MSSA (6) Hx of hepatitis C SNOMED Code(s): 71718260175378, 09326839339695 ICD Code: Z86.19 - PERSONAL HISTORY OF OTHER INFECTIOUS AND PARASITIC DISEASES Status: Chronic Priority: Medium Current Visit: No Problem List Initiated/Reviewed/Updated: Yes Orders Last 24hrs: Active Orders 24 hr Category Date Time Status Oxygen Therapy [RC] PRN Care 05/21/17 19:30 Ordered VTE/DVT Education [RC] PER UNIT ROUTINE Care 05/21/17 19:30 Ordered Vital Signs [RC] Q4H Care 05/21/17 19:30 Ordered Regular Diet [DIET] Diet 05/21/17 Dinner Ordered CBC WITH AUTO DIFF [HEME] AM Lab 05/22/17 05:11 Ordered COMPREHENSIVE METABOLIC PN,CMP [CHEM] AM Lab 05/22/17 05:11 Ordered INR,PT,PROTHROMBIN TIME [COAG] AM Lab 05/22/17 05:11 Ordered MAGNESIUM [CHEM] AM Lab 05/22/17 05:11 Ordered ALPRAZolam Med 05/21/17 19:32 Ordered 0.5 mg PO Q4H PRN Ledipasvir/Sofosbuvir [Harvoni 90-400 mg Tablet] Med 05/22/17 09:00 Ordered 1 tab PO DAILY Levofloxacin/Dextrose 5%-Water [Levaquin in D5W 750 MG/ Med 05/22/17 17:00 Ordered 150 ML] 750 mg Premix Bag 1 bag IV Q24H Ribavirin [Ribasphere] Med 05/22/17 09:00 Ordered 200 mg PO DAILY Vancomycin Pharmacy to Dose [Pharmacy to Dose - Med 05/21/17 19:45 Ordered Vancomycin] 1 dose .XX ASDIRECTED Resuscitation Status Routine Resus Stat 05/21/17 19:30 Ordered Medication Orders Alprazolam (Xanax) 0.5 mg PO Q4H PRN PRN Reason: Anxiety Non-Formulary Medication (Ledipasvir/Sofosbuvir [Harvoni 90-400 Mg Tablet]) 1 tab PO DAILY CORINNE Non-Formulary Medication (Ribavirin [Ribasphere]) 200 mg PO DAILY CORINEN Sodium Chloride (Saline Flush) 10 ml FLUSH ASDIRECTED PRN PRN Reason: Keep Vein Open Sodium Chloride (Saline Flush) 2.5 ml FLUSH ASDIRECTED PRN PRN Reason: Keep Vein Open Assessment/Plan Comment:: She did not received prolonged antibiotics for her recent MSSA bacteremia. She also did not have a blood culture 3-4 days after starting antibiotics. She is at risk for recurrent MSSA bacteremia. She has a possible infiltrate on CXR. Will treat with vancomycin and levaquin pending blood cultures. She and her and daughter have requested consideration of transfer to a higher level of care so that GI and infectious disease consults might be available. I did call the hospitalist transmission and protection engineer at [facility] but due to the late hour, we have decided to seek specialty phone consultation tomorrow. Onesimo Limon MD
[2017-05-21] MEDS: Potassium Chloride 20 MEQ Tab.ER PO ONE ×2 (21:45→21:49)
[2017-05-21] MEDS ORDERED: Potassium Chloride 10% 20 MEQ/15 ML Soln 30 ML UD Cup PO ONE (21:49)
[2017-05-21] MEDS ORDERED: LORazepam 2 MG/ML MDV IVPUSH PRN (22:39)
[2017-05-21] MEDS ORDERED: QUEtiapine 100 MG Tab PO SCH (22:45)
[2017-05-22] MEDS: Sodium Chloride 0.9% 1,000 ML IV SCH ×2 (00:32→10:02)
[2017-05-22] MEDS ORDERED: Magnesium Sulfate/Water 2 GM in Premix Bag 1 BAG IV ONE (09:16)
--- NOTE | 2017-05-22 09:53 | PCM.DCSUM1 ---
Discharge Summary - Hospital Course Brief History: she was admitted with impaired mentation. She had a prior recent admission and was , at that time, diagnosed with MSSA bacteremia by blood culture drawn on 05/15/2017. She was discharged home on zyvox on 05/19/2017. - Discharge Data Discharge Date: 05/22/17 Discharge Disposition: DC/Tfer to [facility] 02 Condition: Fair - Discharge Diagnosis/Problem(s) (1) Altered mental status SNOMED Code(s): 208067010 ICD Code: R41.82 - ALTERED MENTAL STATUS, UNSPECIFIED Status: Acute Current Visit: Yes (2) Hepatic encephalopathy SNOMED Code(s): 89308770 ICD Code: K72.90 - HEPATIC FAILURE, UNSPECIFIED WITHOUT COMA Status: Acute Current Visit: Yes (3) Pulmonary infiltrate SNOMED Code(s): 076916937 ICD Code: R91.8 - OTHER NONSPECIFIC ABNORMAL FINDING OF LUNG FIELD Status: Acute Current Visit: Yes (4) UTI (urinary tract infection) SNOMED Code(s): 24465182 ICD Code: N39.0 - URINARY TRACT INFECTION, SITE NOT SPECIFIED Status: Acute Current Visit: Yes (5) Bacteremia SNOMED Code(s): 8922655 ICD Code: R78.81 - BACTEREMIA Status: Acute Priority: High Current Visit: No Problem Details: MSSA (6) Hx of hepatitis C SNOMED Code(s): 66255906622351, 66855732338105 ICD Code: Z86.19 - PERSONAL HISTORY OF OTHER INFECTIOUS AND PARASITIC DISEASES Status: Chronic Priority: Medium Current Visit: No - Patient Summary/Data Hospital Course: Her serum ammonia level was elevated at 75. Her INR was 1.5 on the day of transfer. blood cultures were obtained in the ED. Her CXR showed , by radiology department reading, showed a possible LLL infiltrate. Her UA showed 2 plus bacteria as well as 20-30 rbc's /HPF In view of her recent MSSA bacteremia, she was started on vancomycin and levaquin. The patient's asked about the propriety of transfer to [facility] because of the availability of her infectious disease specialist, Dr Payne as well as the availability of gastroenterology. I spoke with Dr Payne who agreed to see patient as it sales consultant. I spoke with dispatch and was referred to the ED . I spoke with Dr Hidalgo in the ED who accepted patient in transfer. - Discharge Plan Home Medications: Home Meds Ledipasvir/Sofosbuvir [Harvoni 90-400 mg Tablet] 1 tab PO DAILY 03/04/17 [ History] Ribavirin [Ribasphere] 200 mg PO DAILY 03/04/17 [History] ALPRAZolam [Alprazolam ODT] 0.5 mg PO ASDIRECTED PRN 03/06/17 [History] DULoxetine HCl [Duloxetine HCl] 90 mg PO DAILY 03/06/17 [History] Furosemide 20 mg PO DAILY 05/15/17 [History] Potassium Bicarbonate/Cit Ac [Potassium 25 Meq Tablet Eff] 1 tab PO DAILY [History] Linezolid [Zyvox] 600 mg PO Q12H #10 tablet 05/19/17 [Rx] Forms: ED Department Discharge Referrals: PCP,None [Primary Care Provider] - - Patient Data Vitals - Most Recent: Last Vital Signs Temp 97.0 F 05/22/17 08:00 Pulse 93 05/22/17 08:00 Resp 20 05/22/17 08:00 BP 118/62 05/22/17 08:00 Pulse Ox 90 L 05/22/17 08:00 Weight - Most Recent: 72 kg I&O - Last 24 hours: Intake & Output 05/21/17 05/22/17 05/22/17 22:59 06:59 14:59 Intake Total 300 1733 Output Total 425 Balance 300 1308 Lab Results - Last 24 hrs: Laboratory Results - last 24 hr 05/22/17 05/22/17 05/22/17 Range/Units 04:29 04:29 04:29 WBC 3.82 L (4.0-11.0) K/uL RBC 2.47 L (4.30-5.90) M/uL Hgb 7.3 L (12.0-16.0) g/dL Hct 23.2 L (36.0-46.0) % MCV 93.9 (80.0-98.0) fL MCH 29.6 (27.0-32.0) pg MCHC 31.5 (31.0-37.0) g/dL RDW Std Deviation 49.5 (28.0-62.0) fl RDW Coeff of Karlos 14 (11.0-15.0) % Plt Count 83 L (150-400) K/uL MPV 8.60 (7.40-12.00) fL Neut % (Auto) 57.8 (48.0-80.0) % Lymph % (Auto) 35.1 (16.0-40.0) % [place] % (Auto) 5.8 (0.0-15.0) % Eos % (Auto) 1.0 (0.0-7.0) % Baso % (Auto) 0.3 (0.0-1.5) % Neut # (Auto) 2.2 (1.4-5.7) K/uL Lymph # (Auto) 1.3 (0.6-2.4) K/uL [place] # (Auto) 0.2 (0.0-0.8) K/uL Eos # (Auto) 0.0 (0.0-0.7) K/uL Baso # (Auto) 0.0 (0.0-0.1) K/uL Nucleated RBC % 0.0 /100WBC Nucleated RBCs # 0 K/uL INR 1.53 H (0.86-1.11) Lactate (0.20-2.00) mmol/L Sodium 140 (136-146) mmol/L Potassium 3.7 (3.5-5.1) mmol/L Chloride 112 H (98-110) mmol/L Carbon Dioxide 20 L (21-31) mmol/L BUN 7 (6.0-23.0) mg/dL Creatinine 1.2 (0.6-1.5) mg/dL Est Cr Clr Drug Dosing 47.25 mL/min Estimated GFR (MDRD) 46.0 ml/min Glucose 67 (60-110) mg/dL Calcium 7.6 L (8.8-10.8) mg/dL Magnesium 1.2 L (1.5-2.3) mEq/L Total Bilirubin 1.4 (0.1-1.5) mg/dL AST 30 (5-40) IU/L ALT 12 (8-54) IU/L Alkaline Phosphatase 54 (40-150) Total Protein 6.1 (6.0-8.0) g/dL Albumin 1.7 L (3.5-5.0) g/dL Globulin 4.4 H (2.0-3.5) g/dL Albumin/Globulin Ratio 0.4 L (1.3-2.8) 05/22/17 Range/Units 04:29 WBC (4.0-11.0) K/uL RBC (4.30-5.90) M/uL Hgb (12.0-16.0) g/dL Hct (36.0-46.0) % MCV (80.0-98.0) fL MCH (27.0-32.0) pg MCHC (31.0-37.0) g/dL RDW Std Deviation (28.0-62.0) fl RDW Coeff of Karlos (11.0-15.0) % Plt Count (150-400) K/uL MPV (7.40-12.00) fL Neut % (Auto) (48.0-80.0) % Lymph % (Auto) (16.0-40.0) % [place] % (Auto) (0.0-15.0) % Eos % (Auto) (0.0-7.0) % Baso % (Auto) (0.0-1.5) % Neut # (Auto) (1.4-5.7) K/uL Lymph # (Auto) (0.6-2.4) K/uL [place] # (Auto) (0.0-0.8) K/uL Eos # (Auto) (0.0-0.7) K/uL Baso # (Auto) (0.0-0.1) K/uL Nucleated RBC % /100WBC Nucleated RBCs # K/uL INR (0.86-1.11) Lactate 2.1 H (0.20-2.00) mmol/L Sodium (136-146) mmol/L Potassium (3.5-5.1) mmol/L Chloride (98-110) mmol/L Carbon Dioxide (21-31) mmol/L BUN (6.0-23.0) mg/dL Creatinine (0.6-1.5) mg/dL Est Cr Clr Drug Dosing mL/min Estimated GFR (MDRD) ml/min Glucose (60-110) mg/dL Calcium (8.8-10.8) mg/dL Magnesium (1.5-2.3) mEq/L Total Bilirubin (0.1-1.5) mg/dL AST (5-40) IU/L ALT (8-54) IU/L Alkaline Phosphatase (40-150) Total Protein (6.0-8.0) g/dL Albumin (3.5-5.0) g/dL Globulin (2.0-3.5) g/dL Albumin/Globulin Ratio (1.3-2.8) Med Orders - Current: Current Medications Alprazolam (Xanax) 0.5 mg PO Q4H PRN PRN Reason: Anxiety Last Admin: 05/21/17 22:13 Dose: 0.5 mg Levofloxacin/Dextrose 750 mg/ (Premix) 150 mls @ 100 mls/hr IV Q24H CORINNE Vancomycin HCl 1 gm/ Sodium (Chloride) 250 mls @ 166 mls/hr IV Q12H CORINNE Last Admin: 05/22/17 04:26 Dose: 166 mls/hr Sodium Chloride (Normal Saline) 1,000 mls @ 125 mls/hr IV ASDIRECTED CORINNE Last Admin: 05/22/17 00:32 Dose: 125 mls/hr Magnesium Sulfate 2 gm/ Premix 50 mls @ 50 mls/hr IV ONETIME ONE Stop: 05/22/17 10:15 Lorazepam (Ativan) 1 mg IVPUSH Q4H PRN PRN Reason: Anxiety Harvoni 1 each PO DAILY [facility] Ribavirin 200 Mg 1 each PO DAILY [facility] Quetiapine Fumarate (Seroquel) 100 mg PO BEDTIME CORINNE Last Admin: 05/21/17 23:10 Dose: 100 mg Sodium Chloride (Saline Flush) 10 ml FLUSH ASDIRECTED PRN PRN Reason: Keep Vein Open Sodium Chloride (Saline Flush) 2.5 ml FLUSH ASDIRECTED PRN PRN Reason: Keep Vein Open Vancomycin HCl (Pharmacy To Dose - Vancomycin) 1 dose .XX ASDIRECTED CORINNE Discontinued Medications Sodium Chloride (Normal Saline) 1,000 mls @ 125 mls/hr IV STAT CORINNE Last Admin: 05/21/17 15:34 Dose: 125 mls/hr Levofloxacin/Dextrose 750 mg/ (Premix) 150 mls @ 100 mls/hr IV ONETIME ONE Stop: 05/21/17 18:18 Last Admin: 05/21/17 18:35 Dose: 100 mls/hr Vancomycin HCl 1 gm/ Sodium (Chloride) 250 mls @ 250 mls/hr IV ONETIME ONE Stop: 05/21/17 17:48 Last Admin: 05/21/17 17:25 Dose: 250 mls/hr Potassium Chloride (Klor-Con M20) 40 meq PO ONETIME ONE Stop: 05/21/17 20:48 Last Admin: 05/21/17 21:49 Dose: Not Given Potassium Chloride (Potassium Chloride) 40 meq PO ONETIME ONE Stop: 05/21/17 21:50 Last Admin: 05/21/17 22:03 Dose: 40 meq *Q Meaningful Use (DIS) - VTE *Q VTE Criteria *Q: - Stroke *Q Stroke Criteria *Q: - AMI *Q AMI Criteria *Q:
[2017-05-22] MEDS: HARVONI PO SCH ×2 (10:38→10:50)
[2017-05-22] MEDS: RIBAVIRIN 200 MG PO SCH ×2 (10:38→10:50)
[2017-05-22 10:53] VITALS: BP 109/61
[2017-05-22] MEDS ORDERED: Levofloxacin/Dextrose 5%-Water 750 MG in Premix Bag 1 BAG IV SCH (17:00)
== END 2017-05-22 11:20 | DRG 861 ==
LOC: MW.ED 15:11 → MW.MS 17:51
PROVIDERS: ADMIT Family Medicine; ATTEND Family Medicine
DX: R41.82 Altered mental status, unspecified (principal); K72.90 Hepatic failure, unspecified without coma; R91.8 Other nonspecific abnormal finding of lung field; N39.0 Urinary tract infection, site not specified; R78.81 Bacteremia; Z86.19 Personal history of other infectious and parasitic diseases; A49.01 Methicillin susceptible Staphylococcus aureus infection, unspecified site; F41.8 Other specified anxiety disorders; Z87.891 Personal history of nicotine dependence
CPT/HCPCS: 36415; 51703; 70450; 70450-26; 71010; 71010-26; 80053; 80305; 81001; 82140; 83605; 83735; 84484; 85025; 85610; 87040; 87077; 87186; 93005; 96361; 96365; 99283; 99285-25; A9270-GY; G0480; J1956; J2060; J3370; J3475; J7040; J7050

== ENCOUNTER 2017-06-30 15:00 | Emergency (ER) | payer BC ==
--- NOTE | 2017-06-30 15:33 | EDM.PDOC ---
ED HPI GENERAL MEDICAL PROBLEM - General Chief Complaint: IV Access Related Stated Complaint: PICCLINE IS LEAKING BLOOD Time Seen by Provider: 06/30/17 15:00 Source of Information: Reports: Patient History Limitations: Reports: No Limitations - History of Present Illness INITIAL COMMENTS - FREE TEXT/NARRATIVE: HISTORY AND PHYSICAL: []57-year-old female presenting on the advice of home health care History of Present Illness: []Has a PICC line into her right arm. There is a small amount of trish blood under the OpSite. Patient is being treated for a staph aureus. Her physicians are located in [place], [place]. Review of Systems: As per history of present illness and below otherwise all systems reviewed and negative. Past medical history: As per history of present illness and as reviewed below otherwise noncontributory. Surgical history: As per history of present illness and as reviewed below otherwise noncontributory. Social history: No reported history of drug or alcohol abuse. Family history: As per history of present illness and as reviewed below otherwise noncontributory. Physical exam: Alert and oriented female who does not look to be in acute distress. Answering questions appropriately in full sentences without shortness of breath HEENT: Atraumatic, normocehpalic, pupils reactive, negative for conjunctival pallor or scleral icterus, , throat clear, neck supple, nontender, trachea midline. Lungs: Clear to auscultation, breath sounds equal bilaterally, chest non tender. Heart: S1S2, regular, negative for clicks, rubs, or JVD. Abdomen: Deferred Pelvis: Deferred Genitourinary: Deferred. Rectal: Deferred Extremities: Atraumatic, negative for cords or calf pain. Neurovascular unremarkable. Neuro: Awake, alert, oriented. Cranial nerves II through XII unremarkable. Cerebellum unremarkable. Motor and sensory unremarkable throughout. Exam nonfocal. Diagnostics: [] Therapeutics: [Dressing change] Impression: [PICC line intact] Plan: []Discharged to home Follow up with your primary care provider in the next 2 days Definitive disposition and diagnosis as appropriate pending reevaluation and review of above. Onset: Sudden Location: Reports: Upper Extremity, Right Left Ankle Pain Score (Numeric/FACES): 6 Neck Pain Score (Numeric/FACES): 8 - Related Data Allergies Allergy/AdvReac Type Severity Reaction Status Date / Time adhesive Allergy Rash Verified 05/21/17 15:17 Home Meds: Home Meds ALPRAZolam [Alprazolam ODT] 0.5 mg PO ASDIRECTED PRN 03/06/17 [History] DULoxetine HCl [Duloxetine HCl] 90 mg PO DAILY 03/06/17 [History] Furosemide 20 mg PO DAILY 05/15/17 [History] Past Medical History - Past Health History Medical/Surgical History: Denies Medical/Surgical History HEENT History: Reports: Impaired Vision, Other (See Below) Other HEENT History: wear glasses Cardiovascular History: Reports: None. Denies: CAD, Heart Failure Respiratory History: Denies: COPD Gastrointestinal History: Reports: Other (See Below) Other Gastrointestinal History: Colon CA. 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: Musculoskeletal History: Reports: None Other Musculoskeletal History: hx: fractured Right Upper Femur with plate and screws Neurological History: Reports: None Psychiatric History: Reports: Anxiety, Bipolar, Depression Endocrine/Metabolic History: Reports: None Other Endocrine/Metabolic History: Current history indicates elevated Glucose Hematologic History: Reports: Blood Transfusion(s) Oncologic (Cancer) History: Reports: Colon Dermatologic History: Reports: None - Infectious Disease History Infectious Disease History: Reports: Hepatitis C, Influenza, Mumps - Past Surgical History HEENT Surgical History: Reports: Tonsillectomy Respiratory Surgical History: Reports: None GI Surgical History: Reports: Cholecystectomy, Other (See Below) (she underwent partial colectomy for colon cancer) Other GI Surgeries/Procedures: Tummy Tuck Musculoskeletal Surgical History: Reports: Other (See Below) Other Musculoskeletal Surgeries/Procedures:: Right femur surgery with plates and screws Oncologic Surgical History: Reports: None Social & Family History - Family History Family Medical History: Noncontributory - Tobacco Use Smoking Status *Q: Former Smoker Years of Tobacco use: 20 Used Tobacco, but Quit: Yes Month Tobacco Last Used: 25 years ago Second Hand Smoke Exposure: No - Caffeine Use Caffeine Use: Reports: Coffee, Tea - Alcohol Use Days Per Week of Alcohol Use: 1 Number of Drinks Per Day: 2 Total Drinks Per Week: 2 - Recreational Drug Use Recreational Drug Use: No Drug Use in Last 12 Months: Yes Recreational Drug Type: Reports: Marijuana/Hashish Recreational Drug Use Frequency: Daily ED ROS GENERAL - Review of Systems Review Of Systems: ROS reveals no pertinent complaints other than HPI. ED EXAM, GENERAL - Physical Exam Exam: See Below (see dictation) Course - Vital Signs Last Recorded V/S: Last Vital Signs Temp 36.6 C 06/30/17 15:06 Pulse 97 06/30/17 15:06 Resp 18 06/30/17 15:06 BP 120/75 06/30/17 15:06 Pulse Ox 97 06/30/17 15:06 Departure - Departure Time of Disposition: 15:32 Disposition: Home, Self-Care 01 Condition: Good Clinical Impression: Dressing change - Discharge Information Forms: ED Department Discharge Additional Instructions: The following information is given to patients seen in the emergency department who are being discharged to home. This information is to outline your options for follow-up care. We provide all patients seen in our emergency department with a follow-up referral. The need for follow-up, as well as the timing and circumstances, are variable depending upon the specifics of your emergency department visit. If you don't have a primary care physician on staff, we will provide you with a referral. We always advise you to contact your personal physician following an emergency department visit to inform them of the circumstance of the visit and for follow-up with them and/or the need for any referrals to a consulting specialist. The emergency department will also refer you to a specialist when appropriate. This referral assures that you have the opportunity for followup care with a specialist. All of these measure are taken in an effort to provide you with optimal care, which includes your followup. Under all circumstances we always encourage you to contact your private physician who remains a resource for coordinating your care. When calling for followup care, please make the office aware that this follow-up is from your recent emergency room visit. If for any reason you are refused follow-up, please contact the [facility] emergency department at and asked to speak to the emergency department charge nurse. The dressing has been changed and your slight not look to be infected. Please follow-up with your physician in the next 2 days
[2017-06-30 16:24] VITALS: BP 131/79
== END 2017-06-30 16:22 | disposition home or self-care (01) ==
LOC: MW.ED 15:00
DX: Z45.2 Encounter for adjustment and management of vascular access device (principal); Z79.899 Other long term (current) drug therapy; Z87.440 Personal history of urinary (tract) infections; Z98.890 Other specified postprocedural states; Z90.49 Acquired absence of other specified parts of digestive tract; Z87.891 Personal history of nicotine dependence
CPT/HCPCS: 99282

== ENCOUNTER 2017-08-25 13:33 | Emergency (ER) | payer BC ==
--- NOTE | 2017-08-25 14:21 | EDM.PDOC ---
ED HPI GENERAL MEDICAL PROBLEM - General Chief Complaint: Lower Extremity Injury/Pain Stated Complaint: LUMP ON LT KNEE Time Seen by Provider: 08/25/17 14:09 Source of Information: Reports: Patient - History of Present Illness INITIAL COMMENTS - FREE TEXT/NARRATIVE: HISTORY AND PHYSICAL: History of present illness: []Patient presents with a lump appearing to be consistent with a lipoma on her left knee over the patella which seems to be somewhat of an unusual place for a lipoma however is a freely mobile mass which is soft approximately 1 inch diameter there is no redness warmth or exudate no open lesion, there is a healed scar just above this where it looks like she has been poking at it with a needle in the past. This is well healed and also is not associated with any inflammation it's more of a scar, however she states that she nicked her skin with a razor last night and that the lesion ballooned up over the last 1-2 hours. She has significant history over the last year of some serious medical conditions with staph sepsis and osteomyelitis has required a lot of hospitalizations over the last year however today I believe she is concerned about the lump on knee but the history she gives is inconsistent, she has no fever nausea vomiting diarrhea constipation chest pain shortness of breath headache dizziness or palpitation no bowel or urine symptoms patient denies any other trauma associated with the knee she denies doing any work on her knees such as cleaning hardwood floors laying carpets Review of systems: As per history of present illness and below otherwise all systems reviewed and negative. Past medical history: As per history of present illness and as reviewed below otherwise noncontributory. Surgical history: As per history of present illness and as reviewed below otherwise noncontributory. Social history: No reported history of drug or alcohol abuse. Family history: As per history of present illness and as reviewed below otherwise noncontributory. Physical exam: HEENT: Atraumatic, normocephalic, pupils reactive, negative for conjunctival pallor or scleral icterus, mucous membranes moist, throat clear, neck supple, nontender, trachea midline. Lungs: Clear to auscultation, breath sounds equal bilaterally, chest nontender. Heart: S1S2, regular, negative for clicks, rubs, or JVD. Abdomen: Soft, nondistended, nontender. Negative for masses or hepatosplenomegaly. Negative for costovertebral tenderness. Pelvis: Stable nontender. Genitourinary: Deferred. Rectal: Deferred. Extremities: Atraumatic, negative for cords or calf pain. Neurovascular unremarkable. Neuro: Awake, alert, oriented. Cranial nerves II through XII unremarkable. Cerebellum unremarkable. Motor and sensory unremarkable throughout. Exam nonfocal. Diagnostics: []Clinical Therapeutics: []None Follow-up with primary care consider excision and pathology Impression: Worried well []Small mass lesion over left patella consistent with a lipoma No evidence of infection No evidence of recent skin compromise Definitive disposition and diagnosis as appropriate pending reevaluation and review of above. - Related Data Allergies Allergy/AdvReac Type Severity Reaction Status Date / Time adhesive Allergy Rash Verified 08/25/17 14:04 Home Meds: Home Meds DULoxetine HCl [Duloxetine HCl] 90 mg PO DAILY 03/06/17 [History] Cephalexin 500 mg 08/25/17 [History] Past Medical History - Past Health History Medical/Surgical History: Denies Medical/Surgical History HEENT History: Reports: Impaired Vision, Other (See Below) Other HEENT History: wear glasses Cardiovascular History: Reports: None Respiratory History: Denies: COPD Gastrointestinal History: Reports: Other (See Below) Other Gastrointestinal History: Colon CA. 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 History: Reports: None Other Genitourinary History: UTI EMERGENCY SPECIALIST History: Reports: Musculoskeletal History: Reports: None Other Musculoskeletal History: hx: fractured Right Upper Femur with plate and screws Neurological History: Reports: None Psychiatric History: Reports: Anxiety, Bipolar, Depression Endocrine/Metabolic History: Reports: None Other Endocrine/Metabolic History: Current history indicates elevated Glucose Hematologic History: Reports: Blood Transfusion(s) Other Hematologic History: sepsis Oncologic (Cancer) History: Reports: Colon Dermatologic History: Reports: None - Infectious Disease History Infectious Disease History: Reports: Chicken Pox, Hepatitis C - Past Surgical History HEENT Surgical History: Reports: Tonsillectomy Respiratory Surgical History: Reports: None GI Surgical History: Reports: Cholecystectomy, Other (See Below) Other GI Surgeries/Procedures: Tummy Tuck Musculoskeletal Surgical History: Reports: Other (See Below) Other Musculoskeletal Surgeries/Procedures:: Right femur surgery with plates and screws Oncologic Surgical History: Reports: None Social & Family History - Family History Family Medical History: Noncontributory - Tobacco Use Smoking Status *Q: Never Smoker Years of Tobacco use: 20 Used Tobacco, but Quit: Yes Month Tobacco Last Used: 25 years ago Second Hand Smoke Exposure: No - Caffeine Use Caffeine Use: Reports: Coffee, Soda - Alcohol Use Days Per Week of Alcohol Use: 1 Number of Drinks Per Day: 2 Total Drinks Per Week: 2 - Recreational Drug Use Recreational Drug Use: No Drug Use in Last 12 Months: Yes Recreational Drug Type: Reports: Marijuana/Hashish Recreational Drug Use Frequency: Daily Review of Systems - Review of Systems Review Of Systems: ROS reveals no pertinent complaints other than HPI. ED EXAM, GENERAL - Physical Exam Exam: Not Obtained Course - Vital Signs Last Recorded V/S: Last Vital Signs Temp 36.3 C 08/25/17 14:01 Pulse 88 08/25/17 14:01 Resp 20 08/25/17 14:01 BP 132/81 08/25/17 14:01 Pulse Ox 97 08/25/17 14:01 Departure - Departure Time of Disposition: 14:17 Disposition: Home, Self-Care 01 Condition: Good Clinical Impression: Worried well - Discharge Information Referrals: Parish Sullivan MD [Primary Care Provider] - Additional Instructions: You have Have a small freely mobile lesion on the left knee consistent with a lipoma, please follow-up with primary care or general surgery and consider excision electively as lesion may be sent for pathology pending further evaluation Follow-up with primary care within 2 weeks for reevaluation of the lesion No treatment is necessary today Return if redness warmth or open lesion develops or if you develop fever nausea vomiting chills sweats you Rosy WLO as self-care oh WNL OS he had a little lightheaded see or scleral patients name is may always return with any other concerning symptomology [facility] [place] [id number] [facility] Professional Building [address] [place] [address], [address] [place] [address] The following information is given to patients seen in the emergency department who are being discharged to home. This information is to outline your options for follow-up care. We provide all patients seen in our emergency department with a follow-up referral. The need for follow-up, as well as the timing and circumstances, are variable depending upon the specifics of your emergency department visit. If you don't have a primary care physician on staff, we will provide you with a referral. We always advise you to contact your personal physician following an emergency department visit to inform them of the circumstance of the visit and for follow-up with them and/or the need for any referrals to a consulting specialist. The emergency department will also refer you to a specialist when appropriate. This referral assures that you have the opportunity for follow-up care with a specialist. All of these measure are taken in an effort to provide you with optimal care, which includes your follow-up. Under all circumstances we always encourage you to contact your private physician who remains a resource for coordinating your care. When calling for follow-up care, please make the office aware that this follow-up is from your recent emergency room visit. If for any reason you are refused follow-up, please contact the [facility] emergency department at and asked to speak to the emergency department charge nurse.
[2017-08-25 14:34] VITALS: BP 118/60
== END 2017-08-25 14:33 | disposition home or self-care (01) ==
LOC: MW.ED 13:33
DX: L98.8 Other specified disorders of the skin and subcutaneous tissue (principal); F32.9 Major depressive disorder, single episode, unspecified; Z85.038 Personal history of other malignant neoplasm of large intestine; Z87.891 Personal history of nicotine dependence; Z79.899 Other long term (current) drug therapy; Z91.048 Other nonmedicinal substance allergy status
CPT/HCPCS: 99282

== ENCOUNTER 2019-07-16 09:30 | Day surgery (SDC) | payer OTHER ==
[~2019-07-16 09:30] MED LIST: Lactated Ringers 1,000 ML IV SCH
[2019-07-16] MEDS ORDERED: Propofol 200 MG/20 ML SDV ONE (09:54)
[2019-07-16] MEDS ORDERED: Midazolam 1 MG/ML 2 ML SDV ONE (09:55)
--- NOTE | 2019-07-16 10:18 | PCM.PREANE ---
Preanesthetic Assessment - Anesthesia/Transfusion/Family Hx Anesthesia History: Prior Anesthesia Without Reaction Other Type of Anesthesia Reaction Comment: Denies any known problem in the past Family History of Anesthesia Reaction: No Transfusion History: Prior Transfusion Without Reaction Intubation History: Unknown - Review of Systems General: No Symptoms Pulmonary: No Symptoms Cardiovascular: No Symptoms Gastrointestinal: Diarrhea, Other (h/o colon cancer) Neurological: No Symptoms Other: Reports: None - Physical Assessment Vital Signs: Last Vital Signs Temp 36.5 C 07/16/19 09:54 Pulse 89 07/16/19 09:54 Resp 16 07/16/19 09:54 BP 119/85 07/16/19 09:54 Pulse Ox Height: 5 ft 6 in Weight: 74.843 kg Mental Status: Alert & Oriented x3 Dentition: Reports: Normal Dentition Thyro-Mental Finger Breadths: 3 Mouth Opening Finger Breadths: 3 ROM/Head Extension: Full Lungs: Clear to Auscultation, Normal Respiratory Effort Cardiovascular: Regular Rate, Regular Rhythm - Allergies Allergies/Adverse Reactions: Allergies Allergy/AdvReac Type Severity Reaction Status Date / Time adhesive Allergy Rash Verified 07/13/19 10:33 apixaban [From Eliquis] Allergy Hives Verified 07/13/19 10:34 - Blood Blood Available: No - Anesthesia Plan Pre-Op Medication Ordered: None - Acknowledgements Anesthesia Type Planned: MAC Pt an Appropriate Candidate for the Planned Anesthesia: Yes Alternatives and Risks of Anesthesia Discussed w Pt/Guardian: Yes Pt/Guardian Understands and Agrees with Anesthesia Plan: Yes PreAnesthesia Questionnaire - Past Health History Medical/Surgical History: Denies Medical/Surgical History HEENT History: Reports: Cataract Other HEENT History: wear glasses Cardiovascular History: Reports: High Cholesterol Gastrointestinal History: Reports: Cholelithiasis, Cirrhosis, Colon Polyp, Hepatitis, Other (See Below) (h/o colon cancer with rt. hemicolectomy 2012) Other Gastrointestinal History: hx of Hepatitis C- has been treated, hx of portal hypertension from the cirrhosis Genitourinary History: Reports: None Other Genitourinary History: UTI PIT HAND History: Reports: Musculoskeletal History: Reports: Fracture, Fibromyalgia, Other (See Below) Other Musculoskeletal History: hx of sepsis in shoulder and left heel Neurological History: Reports: None Psychiatric History: Reports: Anxiety, Bipolar, Depression Endocrine/Metabolic History: Reports: None Other Endocrine/Metabolic History: Current history indicates elevated Glucose Hematologic History: Reports: Blood Transfusion(s) Other Hematologic History: sepsis Oncologic (Cancer) History: Reports: Colon Dermatologic History: Reports: None - Infectious Disease History Infectious Disease History: Reports: Chicken Pox, Hepatitis C - Past Surgical History HEENT Surgical History: Reports: Tonsillectomy GI Surgical History: Reports: Cholecystectomy, Colon, Colonoscopy Other GI Surgeries/Procedures: hx of Right Hemicolectomy for colon cancer Female Surgical History: Reports: Section, Tubal Ligation Other Female Surgeries/Procedures: x3, hx of Abdominoplasty Musculoskeletal Surgical History: Reports: ORIF, Other (See Below) Other Musculoskeletal Surgeries/Procedures:: hx of ORIF right leg- has florentino, stabilizing of left heel- has hardware, debridement of shoulder and left heel because of sepsis Oncologic Surgical History: Reports: Other (See Below) Other Oncologic Surgeries/Procedures: Right Hemicolectomy - SUBSTANCE USE Smoking Status *Q: Current Every Day Smoker (cigar smoker) Tobacco Use Within Last Twelve Months: Cigars Recreational Drug Use History: No - HOME MEDS Home Medications: Home Meds DULoxetine HCl [Duloxetine HCl] 90 mg PO DAILY 03/06/17 [History] Estazolam 2 mg PO BEDTIME 07/13/19 [History] - CURRENT (IN HOUSE) MEDS Current Meds: Current Medications Lactated Ringer's (Ringers, Lactated) 1,000 mls @ 125 mls/hr IV ASDIRECTED CORINNE Discontinued Medications Midazolam HCl (Versed 1 Mg/Ml) Confirm Administered Dose 2 mg .ROUTE .STK-MED ONE Stop: 07/16/19 09:56 Propofol (Diprivan 20 Ml) Confirm Administered Dose 400 mg .ROUTE .STK-MED ONE Stop: 07/16/19 09:55
--- NOTE | 2019-07-16 11:24 | PCM.OPNOTE ---
- General Post-Op/Procedure Note Date of Surgery/Procedure: 07/16/19 Operative Procedure(s): Colonoscopy with epifanio-anastomotic biopsy Pre Op Diagnosis: Personal history of colon cancer Post-Op Diagnosis: Nonspecific colitis Anesthesia Technique: MAC (ASA II) Primary Surgeon: Dmitriy Stevens Condition: Good Free Text/Narrative:: DICTATION [id number] CPT CODE 65521
[2019-07-16] MEDS ORDERED: Lactated Ringers 1,000 ML IV SCH (11:30)
--- NOTE | 2019-07-16 11:36 | OR ---
SURGEON: Dmitriy Stevens M.D. DATE OF PROCEDURE: 07/16/2019 OPERATION PERFORMED: Colonoscopy with biopsy of the anastomosis. PRIMARY SURGEON: Dmitriy Stevens M.D. ANESTHESIA: MAC. ASA CLASSIFICATION: II. PREOPERATIVE DIAGNOSIS: Personal history of colon cancer. POSTOPERATIVE DIAGNOSIS: No evidence of neoplasia, but mild inflammatory changes in the epifanio-anastomotic region. DESCRIPTION OF PROCEDURE: The patient was taken to the endoscopy room and positioned on the endoscopy table in the left lateral decubitus position. Time-out was called for appropriate identification of the patient and procedure. Monitored anesthesia care was provided. The colonoscope was inserted into the rectum and advanced to the anastomosis and subsequently into the terminal ileum. Examination was now carried out in an antegrade fashion. The anastomosis was widely patent and I see no evidence of recurrent disease. There were some mild inflammatory changes near the anastomosis and biopsies of this area were obtained. No obstructing or neoplastic appearing lesions were identified. The remainder of the transverse colon, splenic flexure, descending colon, sigmoid colon, and rectum were very well visualized. Again, no tumors or polyps were seen. There were no acute diverticular changes. No angiodysplastic changes were noted. Once the colonoscope was withdrawn to the rectum, the scope was retroflexed to visualize the anal orifice from above. No tumors or polyps were seen. The patient does have chronic hemorrhoids, but no acute bleeding. The colonoscope was then straightened, the rectum aspirated, and the colonoscope removed. The patient tolerated the procedure well and was taken to recovery room in stable condition. DENTON / JUVENTINO /[id number]
[2019-07-16 11:55] VITALS: BP 107/65; PULSE 74
--- NOTE | 2019-07-16 12:03 | PCM48HPAN ---
Post Anesthesia Note - EVALUATION WITHIN 48HRS OF ANESTHETIC Vital Signs in Normal Range: Yes Patient Participated in Evaluation: Yes Respiratory Function Stable: Yes Airway Patent: Yes Cardiovascular Function Stable: Yes Hydration Status Stable: Yes Pain Control Satisfactory: Yes Nausea and Vomiting Control Satisfactory: Yes Mental Status Recovered: Yes Vital Signs: Last Vital Signs Temp 36.2 C 07/16/19 11:30 Pulse 74 07/16/19 11:30 Resp 16 07/16/19 11:30 BP 107/65 07/16/19 11:30 Pulse Ox 95 07/16/19 11:30 - COMMENTS/OBSERVATIONS Free Text/Narrative:: no anesthesia problems
--- NOTE | 2019-07-16 12:03 | PCM.POSTAN ---
POST ANESTHESIA ASSESSMENT - MENTAL STATUS Mental Status: Alert, Oriented - VITAL SIGNS Vital Signs: Last Vital Signs Temp 36.2 C 07/16/19 11:30 Pulse 74 07/16/19 11:30 Resp 16 07/16/19 11:30 BP 107/65 07/16/19 11:30 Pulse Ox 95 07/16/19 11:30 - RESPIRATORY Respiratory Status: Respiratory Rate WNL, Airway Patent, O2 Saturation Stable - CARDIOVASCULAR CV Status: Pulse Rate WNL, Blood Pressure Stable - GASTROINTESTINAL GI Status: No Symptoms - PAIN Pain Score: 0 - POST OP HYDRATION Hydration Status: Adequate & Stable - OBSERVATIONS Free Text/Narrative:: No anesthesia problems
== END 2019-07-16 11:55 | disposition home or self-care (01) ==
LOC: MW.SDS 09:30
PROVIDERS: ATTEND Surgery
DX: Z12.11 Encounter for screening for malignant neoplasm of colon (principal); K64.9 Unspecified hemorrhoids; K52.9 Noninfective gastroenteritis and colitis, unspecified; E78.00 Pure hypercholesterolemia, unspecified; B18.2 Chronic viral hepatitis C; F17.290 Nicotine dependence, other tobacco product, uncomplicated; F41.9 Anxiety disorder, unspecified; F32.9 Major depressive disorder, single episode, unspecified; M19.012 Primary osteoarthritis, left shoulder; Z88.8 Allergy status to other drugs, medicaments and biological substances; Z91.048 Other nonmedicinal substance allergy status; Z90.49 Acquired absence of other specified parts of digestive tract; Z86.010 Personal history of colon polyps; Z85.038 Personal history of other malignant neoplasm of large intestine; Z83.71 Family history of colonic polyps; Z80.0 Family history of malignant neoplasm of digestive organs; K76.6 Portal hypertension; Z79.899 Other long term (current) drug therapy
CPT/HCPCS: 45380; J2250; J2704; J7120; 88305

== ENCOUNTER 2019-12-27 14:26 | Emergency (ER) | payer OTHER ==
--- NOTE | 2019-12-27 16:29 | CR ---
Chest: Portable view of the chest was obtained. Comparison: Previous chest x-ray of 10/20/19. Areas of scarring are felt to be present within the right mid to lower lung. Lung markings are also slightly increased within the left base and believed to be chronic. No acute parenchymal change is appreciated. Heart size is normal. Tortuous thoracic aorta is seen. Left shoulder prosthesis is seen. No acute osseous finding is appreciated. Impression: 1. Findings as noted above. 2. Nothing acute is appreciated. Diagnostic code #2 Study was dictated in [place] Standard Time
[2019-12-27 16:32] LABS: ACETAMINOPHEN < 2.0 ug/mL; BLOOD UREA NITROGEN,BUN 11 mg/dL (7.0-18.0); CARBON DIOXIDE,CO2 23.3 mmol/L (21.0-32.0); CHLORIDE,CL 106 mmol/L (98-107); GLUCOSE RANDOM 93 mg/dL (74-106); POTASSIUM,K 3.7 mmol/L (3.5-5.1); SODIUM,NA 143 mmol/L (136-145)
--- NOTE | 2019-12-27 16:36 | EDM.PDOC ---
ED HPI GENERAL MEDICAL PROBLEM - General Chief Complaint: Drug or Alcohol Abuse Stated Complaint: OD Time Seen by Provider: 12/27/19 15:35 Source of Information: Reports: Patient, RN Notes Reviewed - History of Present Illness INITIAL COMMENTS - FREE TEXT/NARRATIVE: Patient states that she took 4 or 5 of her sleeping pills last night. She says that she did not tell anyone. She said this morning, she was discovered because when her mother called her, her mother thought that her (pt's) words were slurred. Patient's mother then called the patient's daughter, who came over to check on her and ended up bringing the patient here. Patient says she is not happy that she woke up. She denies specific stressors now. She said she recalls wishing that she were about 9 years ago when her son . She denies any recent similar events. She said that she does not have a psychiatrist, but that she sees a Christina Bentonenbald (?sp) at [facility] for sleeping pills. She does not know if this is a nurse practitioner, physician nurse practitioner physicians assistant, or other type of practitioner. - Related Data Allergies Allergy/AdvReac Type Severity Reaction Status Date / Time adhesive Allergy Rash Verified 12/27/19 14:54 apixaban [From Eliquis] Allergy Hives Verified 12/27/19 14:54 Home Meds: Home Meds DULoxetine HCl [Duloxetine HCl] 90 mg PO DAILY 03/06/17 [History] Estazolam 2 mg PO BEDTIME 07/13/19 [History] cephALEXin [Keflex] 500 mg PO BID 12/27/19 [History] Past Medical History - Past Health History Medical/Surgical History: Denies Medical/Surgical History HEENT History: Reports: Cataract Other HEENT History: wear glasses Cardiovascular History: Reports: High Cholesterol Respiratory History: Denies: COPD Gastrointestinal History: Reports: Cholelithiasis, Cirrhosis, Colon Polyp, Hepatitis, Other (See Below) Other Gastrointestinal History: hx of Hepatitis C- has been treated, hx of portal hypertension from the cirrhosis Genitourinary History: Reports: None Other Genitourinary History: UTI 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: Reports: Musculoskeletal History: Reports: Fracture, Fibromyalgia, Other (See Below) Other Musculoskeletal History: hx of sepsis in shoulder and left heel Neurological History: Reports: None Psychiatric History: Reports: Anxiety, Bipolar, Depression Endocrine/Metabolic History: Reports: None Other Endocrine/Metabolic History: Current history indicates elevated Glucose Hematologic History: Reports: Blood Transfusion(s) Other Hematologic History: sepsis Oncologic (Cancer) History: Reports: Colon Dermatologic History: Reports: None - Infectious Disease History Infectious Disease History: Reports: Chicken Pox, Hepatitis C, MRSA - Past Surgical History HEENT Surgical History: Reports: Tonsillectomy Respiratory Surgical History: Reports: None GI Surgical History: Reports: Cholecystectomy, Colon, Colonoscopy Other GI Surgeries/Procedures: hx of Right Hemicolectomy for colon cancer Female Surgical History: Reports: Section, Tubal Ligation Other Female Surgeries/Procedures: x3, hx of Abdominoplasty Musculoskeletal Surgical History: Reports: Carpal Tunnel, ORIF, Other (See Below ) Other Musculoskeletal Surgeries/Procedures:: hx of ORIF right leg- has florentino, stabilizing of left heel- has hardware, debridement of shoulder and left heel because of sepsis Oncologic Surgical History: Reports: Other (See Below) Other Oncologic Surgeries/Procedures: Right Hemicolectomy Social & Family History - Family History Family Medical History: Noncontributory - Tobacco Use Smoking Status *Q: Current Every Day Smoker Years of Tobacco use: 3 Packs/Tins Daily: 1 - Caffeine Use Caffeine Use: Reports: Coffee, Soda - Recreational Drug Use Recreational Drug Use: No ED ROS GENERAL - Review of Systems Review Of Systems: See Below Constitutional: Denies: Fever, Weakness Respiratory: Denies: Shortness of Breath, Cough Cardiovascular: Denies: Chest Pain, Dyspnea on Exertion, Edema GI/Abdominal: Denies: Abdominal Pain, Nausea, Vomiting Skin: Denies: Bruising Neurological: Denies: Confusion, Dizziness Free Text/Narrative/Comment: Review of systems is negative for hallucinations, nausea, abdominal pain, chest pain. Review of systems is positive for depression, insomnia, anxiety. - Physical Exam Exam: See Below Text/Narrative:: General: alert, well appearing, no acute distress HEENT: Atraumatic, normocephalic, pupils reactive, negative for conjunctival pallor or scleral icterus, mucous membranes moist, throat clear, handling oral secretions well. Neck: supple, nontender, trachea midline. Lungs: Clear to auscultation, breath sounds equal bilaterally, chest nontender. Heart: S1S2, regular, negative for clicks, rubs, or JVD. Abdomen: Soft, nondistended, nontender. Negative for masses or hepatosplenomegaly. Skin: warm, dry, good turgor. Musculoskeletal: soft compartments. Extremities: Atraumatic, negative for cords or calf pain. Neurovascular unremarkable. Neuro: Awake, alert, oriented. Cranial nerves II through XII unremarkable. Cerebellum unremarkable. Motor and sensory unremarkable throughout. Exam nonfocal. Psych: Flat affect. Poor eye contact. Normal rate, rhythm, volume, content of speech. Evasive. Does not appear to be hallucinating. Course - Vital Signs Text/Narrative:: ek bpm normal sinus rhythm left axis deviation normal HI, QRS, QTc intervals; no acute ST changes CBC: thrombocytopenia, otherwise unremarkable CMP: unremarkable Urine drug screen:positive for benzodiazepines (pt has script for these) TSH: nl Urinalysis: tr blood, nit neg, small LE, 3-6 wbc Acetaminophen:neg Salicylate: neg EK bpm normal sinus rhythm left axis deviation normal HI, QRS, QTc intervals; no acute ST changes Cxr: no acute dz 5:00pm Nsg trying to find inpt psych bed for pt. She told me that she regrets that she woke up, and I am concerned that she is at high risk for hurting herself if we were to send her home. 6:10pm Pt is on a hold. Patient became very agitated, shouting that she is not going to get admitted to [place] or anywhere else, put on her close, and so she was leaving. IN other staff members attempted to reason with patient and explained that we are very concerned that she is at risk for harming herself, and that her actions last night are interpreted by us as a cry for help. I told her I was concerned not just that she had taken the pills, but more importantly, that she said she had hidden it from others and was disappointed that she woke up today. Patient said that she is going to go visit a sister of hers in [place] and walked out emergency department. Police were called. Patient was returned to the emergency department. She remained agitated. Due to concern that she may try to elope from the hospital and could end up harming herself, perhaps fatally, she was chemically sedated. 7:00pm Spoke with Daniella Hand NP at [facility]. She states that they can evaluate her, but cannot admit her unless pt comes voluntarily. Stated that they have no secure beds; advised that we look for a different facility. 8:30pm Pt sleeping comfortably; nl WOB. Case endorsed to Dr. Franks, who has agreed to monitor pt until an inpt bed is found for pt and transportation arrives for her. Plan as of shift change is to transfer pt to an inpatient psychiatric facility for treatment of depression with suicidal ideation. Last Recorded V/S: Last Vital Signs Temp 97.5 F 12/27/19 14:49 Pulse 81 12/27/19 17:10 Resp 18 12/27/19 17:10 BP 120/93 H 12/27/19 17:10 Pulse Ox 97 12/27/19 17:10 - Orders/Labs/Meds Orders: Active Orders 24 hr Category Date Time Status EKG Documentation Completion [RC] STAT Care 12/27/19 15:18 Active CULTURE URINE [RM] Stat Lab 12/27/19 15:58 Received Labs: Laboratory Tests 12/27/19 12/27/19 12/27/19 Range/Units 15:33 15:33 15:58 WBC 6.04 (4.0-11.0) K/uL RBC 5.13 (4.30-5.90) M/uL Hgb 16.3 H (12.0-16.0) g/dL Hct 46.5 H (36.0-46.0) % MCV 90.6 (80.0-98.0) fL MCH 31.8 (27.0-32.0) pg MCHC 35.1 (31.0-37.0) g/dL RDW Std Deviation 44.0 (28.0-62.0) fl RDW Coeff of Karlos 13 (11.0-15.0) % Plt Count 107 L (150-400) K/uL MPV 10.70 (7.40-12.00) fL Neut % (Auto) 53.0 (48.0-80.0) % Lymph % (Auto) 36.8 (16.0-40.0) % [place] % (Auto) 7.5 (0.0-15.0) % Eos % (Auto) 2.2 (0.0-7.0) % Baso % (Auto) 0.5 (0.0-1.5) % Neut # (Auto) 3.2 (1.4-5.7) K/uL Lymph # (Auto) 2.2 (0.6-2.4) K/uL [place] # (Auto) 0.5 (0.0-0.8) K/uL Eos # (Auto) 0.1 (0.0-0.7) K/uL Baso # (Auto) 0.0 (0.0-0.1) K/uL Nucleated RBC % 0.0 /100WBC Nucleated RBCs # 0 K/uL Sodium 143 (136-145) mmol/L Potassium 3.7 (3.5-5.1) mmol/L Chloride 106 (98-107) mmol/L Carbon Dioxide 23.3 (21.0-32.0) mmol/L BUN 11 (7.0-18.0) mg/dL Creatinine 1.0 (0.6-1.0) mg/dL Est Cr Clr Drug Dosing 55.31 mL/min Estimated GFR (MDRD) 56.4 ml/min Glucose 93 (74-106) mg/dL Calcium 9.3 (8.5-10.1) mg/dL Total Bilirubin 1.1 H (0.2-1.0) mg/dL AST 17 (15-37) IU/L ALT 22 (14-63) IU/L Alkaline Phosphatase 63 (46-116) U/L Total Protein 7.3 (6.4-8.2) g/dL Albumin 4.0 (3.4-5.0) g/dL Globulin 3.3 (2.6-4.0) g/dL Albumin/Globulin Ratio 1.2 (0.9-1.6) TSH 3rd Generation 0.84 (0.36-3.74) uIU/mL Urine Color YELLOW Urine Appearance HAZY Urine pH 6.0 (5.0-8.0) Ur Specific Buna 1.015 (1.001-1.035) Urine Protein NEGATIVE (NEGATIVE) mg/dL Urine Glucose (UA) NEGATIVE (NEGATIVE) mg/dL Urine Ketones NEGATIVE (NEGATIVE) mg/dL Urine Occult Blood TRACE-INTACT H (NEGATIVE) Urine Nitrite NEGATIVE (NEGATIVE) Urine Bilirubin NEGATIVE (NEGATIVE) Urine Urobilinogen 0.2 (<2.0) EU/dL Ur Leukocyte Esterase SMALL H (NEGATIVE) Urine RBC 0-4 (0-2/HPF) Urine WBC 3-6 (0-5/HPF) Ur Epithelial Cells FEW (NONE-FEW) Urine Bacteria FEW (NEGATIVE) Salicylates 4.5 (0-20) mg/dL Urine Opiates Screen (NEGATIVE) Ur Oxycodone Screen (NEGATIVE) Urine Methadone Screen (NEGATIVE) Acetaminophen < 2.0 ug/mL Ur Barbiturates Screen (NEGATIVE) Ur Phencyclidine Scrn (NEGATIVE) Ur Amphetamine Screen (NEGATIVE) U Methamphetamines Scrn (NEGATIVE) U Benzodiazepines Scrn (NEGATIVE) U Cocaine Metab Screen (NEGATIVE) U Marijuana (THC) Screen (NEGATIVE) 12/27/19 Range/Units 15:58 WBC (4.0-11.0) K/uL RBC (4.30-5.90) M/uL Hgb (12.0-16.0) g/dL Hct (36.0-46.0) % MCV (80.0-98.0) fL MCH (27.0-32.0) pg MCHC (31.0-37.0) g/dL RDW Std Deviation (28.0-62.0) fl RDW Coeff of Karlos (11.0-15.0) % Plt Count (150-400) K/uL MPV (7.40-12.00) fL Neut % (Auto) (48.0-80.0) % Lymph % (Auto) (16.0-40.0) % [place] % (Auto) (0.0-15.0) % Eos % (Auto) (0.0-7.0) % Baso % (Auto) (0.0-1.5) % Neut # (Auto) (1.4-5.7) K/uL Lymph # (Auto) (0.6-2.4) K/uL [place] # (Auto) (0.0-0.8) K/uL Eos # (Auto) (0.0-0.7) K/uL Baso # (Auto) (0.0-0.1) K/uL Nucleated RBC % /100WBC Nucleated RBCs # K/uL Sodium (136-145) mmol/L Potassium (3.5-5.1) mmol/L Chloride (98-107) mmol/L Carbon Dioxide (21.0-32.0) mmol/L BUN (7.0-18.0) mg/dL Creatinine (0.6-1.0) mg/dL Est Cr Clr Drug Dosing mL/min Estimated GFR (MDRD) ml/min Glucose (74-106) mg/dL Calcium (8.5-10.1) mg/dL Total Bilirubin (0.2-1.0) mg/dL AST (15-37) IU/L ALT (14-63) IU/L Alkaline Phosphatase (46-116) U/L Total Protein (6.4-8.2) g/dL Albumin (3.4-5.0) g/dL Globulin (2.6-4.0) g/dL Albumin/Globulin Ratio (0.9-1.6) TSH 3rd Generation (0.36-3.74) uIU/mL Urine Color Urine Appearance Urine pH (5.0-8.0) Ur Specific Buna (1.001-1.035) Urine Protein (NEGATIVE) mg/dL Urine Glucose (UA) (NEGATIVE) mg/dL Urine Ketones (NEGATIVE) mg/dL Urine Occult Blood (NEGATIVE) Urine Nitrite (NEGATIVE) Urine Bilirubin (NEGATIVE) Urine Urobilinogen (<2.0) EU/dL Ur Leukocyte Esterase (NEGATIVE) Urine RBC (0-2/HPF) Urine WBC (0-5/HPF) Ur Epithelial Cells (NONE-FEW) Urine Bacteria (NEGATIVE) Salicylates (0-20) mg/dL Urine Opiates Screen NEGATIVE (NEGATIVE) Ur Oxycodone Screen NEGATIVE (NEGATIVE) Urine Methadone Screen NEGATIVE (NEGATIVE) Acetaminophen ug/mL Ur Barbiturates Screen NEGATIVE (NEGATIVE) Ur Phencyclidine Scrn NEGATIVE (NEGATIVE) Ur Amphetamine Screen NEGATIVE (NEGATIVE) U Methamphetamines Scrn NEGATIVE (NEGATIVE) U Benzodiazepines Scrn POSITIVE (NEGATIVE) U Cocaine Metab Screen NEGATIVE (NEGATIVE) U Marijuana (THC) Screen NEGATIVE (NEGATIVE) Meds: Medications Discontinued Medications Generic Name Dose Route Start Last Admin Trade Name Freq PRN Reason Stop Dose Admin Diphenhydramine HCl 50 mg 12/27/19 18:36 12/27/19 18:55 Benadryl IM 12/27/19 18:37 50 mg ONETIME ONE Administration Haloperidol Lactate 5 mg 12/27/19 18:37 12/27/19 18:54 Haldol IM 12/27/19 18:38 5 mg ONETIME ONE Administration Lorazepam 2 mg 12/27/19 18:36 12/27/19 18:55 Ativan IM 12/27/19 18:37 2 mg ONETIME ONE Administration Departure - Departure Time of Disposition: 18:00 Disposition: DC/Tfer to Psych Hosp/Unit 65 Clinical Impression: Depression with suicidal ideation - Discharge Information Referrals: Parish Sullivan MD [Primary Care Provider] - Forms: ED Department Discharge Sepsis Event Note - Evaluation Sepsis Screening Result: No Definite Risk - Focused Exam Vital Signs: Vital Signs Temp Pulse Resp BP Pulse Ox 12/27/19 17:10 81 18 120/93 H 97 12/27/19 16:40 72 17 120/83 96 12/27/19 15:40 76 18 118/82 97 12/27/19 15:00 78 18 117/81 95 12/27/19 14:49 97.5 F 82 18 129/87 95 Date Exam was Performed: 12/27/19 Time Exam was Performed: 20:35 - My Orders Last 24 Hours: My Active Orders 12/27/19 15:18 EKG Documentation Completion [RC] STAT 12/27/19 15:58 CULTURE URINE [RM] Stat - Assessment/Plan Last 24 Hours: My Active Orders 12/27/19 15:18 EKG Documentation Completion [RC] STAT 12/27/19 15:58 CULTURE URINE [RM] Stat
[2019-12-27] MEDS ORDERED: LORazepam 2 MG/ML SDV IM ONE (18:36)
[2019-12-27] MEDS ORDERED: diphenhydrAMINE 50 MG/ML SDV IM ONE (18:36)
[2019-12-27] MEDS ORDERED: Haloperidol Lactate 5 MG/ML SDV IM ONE (18:37)
[2019-12-27 21:20] VITALS: BP 109/65; PULSE 87
--- NOTE | 2019-12-27 22:58 | EDM.PDOCBH ---
ED HPI GENERAL MEDICAL PROBLEM - General Chief Complaint: Drug or Alcohol Abuse Stated Complaint: OD Time Seen by Provider: 12/27/19 15:35 Source of Information: Reports: Patient, RN Notes Reviewed - History of Present Illness INITIAL COMMENTS - FREE TEXT/NARRATIVE: Patient states that she took 4 or 5 of her sleeping pills last night. She says that she did not tell anyone. She said this morning, she was discovered because when her mother called her, her mother thought that her (pt's) words were slurred. Patient's mother then called the patient's daughter, who came over to check on her and ended up bringing the patient here. Patient says she is not happy that she woke up. She denies specific stressors now. She said she recalls wishing that she were about 9 years ago when her son . She denies any recent similar events. She said that she does not have a psychiatrist, but that she sees a Christina Bentonenbald (?sp) at [facility] for sleeping pills. She does not know if this is a nurse practitioner, physician clinical lab assistant, or other type of practitioner. - Related Data Allergies Allergy/AdvReac Type Severity Reaction Status Date / Time adhesive Allergy Rash Verified 12/27/19 14:54 apixaban [From Eliquis] Allergy Hives Verified 12/27/19 14:54 Home Meds: Home Meds DULoxetine HCl [Duloxetine HCl] 90 mg PO DAILY 03/06/17 [History] Estazolam 2 mg PO BEDTIME 07/13/19 [History] cephALEXin [Keflex] 500 mg PO BID 12/27/19 [History] Past Medical History - Past Health History Medical/Surgical History: Denies Medical/Surgical History HEENT History: Reports: Cataract Other HEENT History: wear glasses Cardiovascular History: Reports: High Cholesterol Respiratory History: Denies: COPD Gastrointestinal History: Reports: Cholelithiasis, Cirrhosis, Colon Polyp, Hepatitis, Other (See Below) Other Gastrointestinal History: hx of Hepatitis C- has been treated, hx of portal hypertension from the cirrhosis Genitourinary History: Reports: None Other Genitourinary History: UTI 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: Musculoskeletal History: Reports: Fracture, Fibromyalgia, Other (See Below) Other Musculoskeletal History: hx of sepsis in shoulder and left heel Neurological History: Reports: None Psychiatric History: Reports: Anxiety, Bipolar, Depression Endocrine/Metabolic History: Reports: None Other Endocrine/Metabolic History: Current history indicates elevated Glucose Hematologic History: Reports: Blood Transfusion(s) Other Hematologic History: sepsis Oncologic (Cancer) History: Reports: Colon Dermatologic History: Reports: None - Infectious Disease History Infectious Disease History: Reports: Chicken Pox, Hepatitis C, MRSA - Past Surgical History HEENT Surgical History: Reports: Tonsillectomy Respiratory Surgical History: Reports: None GI Surgical History: Reports: Cholecystectomy, Colon, Colonoscopy Other GI Surgeries/Procedures: hx of Right Hemicolectomy for colon cancer Female Surgical History: Reports: Section, Tubal Ligation Other Female Surgeries/Procedures: x3, hx of Abdominoplasty Musculoskeletal Surgical History: Reports: Carpal Tunnel, ORIF, Other (See Below ) Other Musculoskeletal Surgeries/Procedures:: hx of ORIF right leg- has florentino, stabilizing of left heel- has hardware, debridement of shoulder and left heel because of sepsis Oncologic Surgical History: Reports: Other (See Below) Other Oncologic Surgeries/Procedures: Right Hemicolectomy Social & Family History - Family History Family Medical History: Noncontributory - Tobacco Use Smoking Status *Q: Current Every Day Smoker Years of Tobacco use: 3 Packs/Tins Daily: 1 - Caffeine Use Caffeine Use: Reports: Coffee, Soda - Recreational Drug Use Recreational Drug Use: No ED ROS GENERAL - Review of Systems Review Of Systems: See Below (see original H&P) ED EXAM, BEHAVIORAL HEALTH - Physical Exam Exam: See Below Text/Narrative:: See original H&P COURSE, BEHAVIORAL HEALTH COMP - Course Vital Signs: Last Vital Signs Temp 36.4 C 12/27/19 14:49 Pulse 87 12/27/19 20:15 Resp 18 12/27/19 20:15 BP 109/65 12/27/19 20:15 Pulse Ox 96 12/27/19 20:15 Orders, Labs, Meds: Active Orders 24 hr Category Date Time Status EKG Documentation Completion [RC] STAT Care 12/27/19 15:18 Active CULTURE URINE [RM] Stat Lab 12/27/19 15:58 Received Laboratory Tests 12/27/19 12/27/19 12/27/19 Range/Units 15:33 15:33 15:58 WBC 6.04 (4.0-11.0) K/uL RBC 5.13 (4.30-5.90) M/uL Hgb 16.3 H (12.0-16.0) g/dL Hct 46.5 H (36.0-46.0) % MCV 90.6 (80.0-98.0) fL MCH 31.8 (27.0-32.0) pg MCHC 35.1 (31.0-37.0) g/dL RDW Std Deviation 44.0 (28.0-62.0) fl RDW Coeff of Karlos 13 (11.0-15.0) % Plt Count 107 L (150-400) K/uL MPV 10.70 (7.40-12.00) fL Neut % (Auto) 53.0 (48.0-80.0) % Lymph % (Auto) 36.8 (16.0-40.0) % Lynn % (Auto) 7.5 (0.0-15.0) % Eos % (Auto) 2.2 (0.0-7.0) % Baso % (Auto) 0.5 (0.0-1.5) % Neut # (Auto) 3.2 (1.4-5.7) K/uL Lymph # (Auto) 2.2 (0.6-2.4) K/uL Lynn # (Auto) 0.5 (0.0-0.8) K/uL Eos # (Auto) 0.1 (0.0-0.7) K/uL Baso # (Auto) 0.0 (0.0-0.1) K/uL Nucleated RBC % 0.0 /100WBC Nucleated RBCs # 0 K/uL Sodium 143 (136-145) mmol/L Potassium 3.7 (3.5-5.1) mmol/L Chloride 106 (98-107) mmol/L Carbon Dioxide 23.3 (21.0-32.0) mmol/L BUN 11 (7.0-18.0) mg/dL Creatinine 1.0 (0.6-1.0) mg/dL Est Cr Clr Drug Dosing 55.31 mL/min Estimated GFR (MDRD) 56.4 ml/min Glucose 93 (74-106) mg/dL Calcium 9.3 (8.5-10.1) mg/dL Total Bilirubin 1.1 H (0.2-1.0) mg/dL AST 17 (15-37) IU/L ALT 22 (14-63) IU/L Alkaline Phosphatase 63 (46-116) U/L Total Protein 7.3 (6.4-8.2) g/dL Albumin 4.0 (3.4-5.0) g/dL Globulin 3.3 (2.6-4.0) g/dL Albumin/Globulin Ratio 1.2 (0.9-1.6) TSH 3rd Generation 0.84 (0.36-3.74) uIU/mL Urine Color YELLOW Urine Appearance HAZY Urine pH 6.0 (5.0-8.0) Ur Specific [place] 1.015 (1.001-1.035) Urine Protein NEGATIVE (NEGATIVE) mg/dL Urine Glucose (UA) NEGATIVE (NEGATIVE) mg/dL Urine Ketones NEGATIVE (NEGATIVE) mg/dL Urine Occult Blood TRACE-INTACT H (NEGATIVE) Urine Nitrite NEGATIVE (NEGATIVE) Urine Bilirubin NEGATIVE (NEGATIVE) Urine Urobilinogen 0.2 (<2.0) EU/dL Ur Leukocyte Esterase SMALL H (NEGATIVE) Urine RBC 0-4 (0-2/HPF) Urine WBC 3-6 (0-5/HPF) Ur Epithelial Cells FEW (NONE-FEW) Urine Bacteria FEW (NEGATIVE) Salicylates 4.5 (0-20) mg/dL Urine Opiates Screen (NEGATIVE) Ur Oxycodone Screen (NEGATIVE) Urine Methadone Screen (NEGATIVE) Acetaminophen < 2.0 ug/mL Ur Barbiturates Screen (NEGATIVE) Ur Phencyclidine Scrn (NEGATIVE) Ur Amphetamine Screen (NEGATIVE) U Methamphetamines Scrn (NEGATIVE) U Benzodiazepines Scrn (NEGATIVE) U Cocaine Metab Screen (NEGATIVE) U Marijuana (THC) Screen (NEGATIVE) 12/27/19 Range/Units 15:58 WBC (4.0-11.0) K/uL RBC (4.30-5.90) M/uL Hgb (12.0-16.0) g/dL Hct (36.0-46.0) % MCV (80.0-98.0) fL MCH (27.0-32.0) pg MCHC (31.0-37.0) g/dL RDW Std Deviation (28.0-62.0) fl RDW Coeff of Karlos (11.0-15.0) % Plt Count (150-400) K/uL MPV (7.40-12.00) fL Neut % (Auto) (48.0-80.0) % Lymph % (Auto) (16.0-40.0) % Lynn % (Auto) (0.0-15.0) % Eos % (Auto) (0.0-7.0) % Baso % (Auto) (0.0-1.5) % Neut # (Auto) (1.4-5.7) K/uL Lymph # (Auto) (0.6-2.4) K/uL Lynn # (Auto) (0.0-0.8) K/uL Eos # (Auto) (0.0-0.7) K/uL Baso # (Auto) (0.0-0.1) K/uL Nucleated RBC % /100WBC Nucleated RBCs # K/uL Sodium (136-145) mmol/L Potassium (3.5-5.1) mmol/L Chloride (98-107) mmol/L Carbon Dioxide (21.0-32.0) mmol/L BUN (7.0-18.0) mg/dL Creatinine (0.6-1.0) mg/dL Est Cr Clr Drug Dosing mL/min Estimated GFR (MDRD) ml/min Glucose (74-106) mg/dL Calcium (8.5-10.1) mg/dL Total Bilirubin (0.2-1.0) mg/dL AST (15-37) IU/L ALT (14-63) IU/L Alkaline Phosphatase (46-116) U/L Total Protein (6.4-8.2) g/dL Albumin (3.4-5.0) g/dL Globulin (2.6-4.0) g/dL Albumin/Globulin Ratio (0.9-1.6) TSH 3rd Generation (0.36-3.74) uIU/mL Urine Color Urine Appearance Urine pH (5.0-8.0) Ur Specific [place] (1.001-1.035) Urine Protein (NEGATIVE) mg/dL Urine Glucose (UA) (NEGATIVE) mg/dL Urine Ketones (NEGATIVE) mg/dL Urine Occult Blood (NEGATIVE) Urine Nitrite (NEGATIVE) Urine Bilirubin (NEGATIVE) Urine Urobilinogen (<2.0) EU/dL Ur Leukocyte Esterase (NEGATIVE) Urine RBC (0-2/HPF) Urine WBC (0-5/HPF) Ur Epithelial Cells (NONE-FEW) Urine Bacteria (NEGATIVE) Salicylates (0-20) mg/dL Urine Opiates Screen NEGATIVE (NEGATIVE) Ur Oxycodone Screen NEGATIVE (NEGATIVE) Urine Methadone Screen NEGATIVE (NEGATIVE) Acetaminophen ug/mL Ur Barbiturates Screen NEGATIVE (NEGATIVE) Ur Phencyclidine Scrn NEGATIVE (NEGATIVE) Ur Amphetamine Screen NEGATIVE (NEGATIVE) U Methamphetamines Scrn NEGATIVE (NEGATIVE) U Benzodiazepines Scrn POSITIVE (NEGATIVE) U Cocaine Metab Screen NEGATIVE (NEGATIVE) U Marijuana (THC) Screen NEGATIVE (NEGATIVE) Medications Discontinued Medications Generic Name Dose Route Start Last Admin Trade Name Freq PRN Reason Stop Dose Admin Diphenhydramine HCl 50 mg 12/27/19 18:36 12/27/19 18:55 Benadryl IM 12/27/19 18:37 50 mg ONETIME ONE Administration Haloperidol Lactate 5 mg 12/27/19 18:37 12/27/19 18:54 Haldol IM 12/27/19 18:38 5 mg ONETIME ONE Administration Lorazepam 2 mg 12/27/19 18:36 12/27/19 18:55 Ativan IM 12/27/19 18:37 2 mg ONETIME ONE Administration Re-Assessment/Re-Exam: Please see the original H&P as the patient's care has been handed off to me. The patient has been resting since she received her sedatives. Nursing staff has tried 6 different facilities and they all have declined the patient for transfer for various reasons. Currently, the patient's - Rene Bill -is at bedside. I talked with him alone, and he knows his very well and appears to have a very good rapport and relationship with her. He states that she has a lot of chronic pain, because of this chronic pain for which she is not allowed to take really any ibuprofen and very limited Tylenol secondary to hepatitis C and liver cirrhosis , she is always in pain. She also has had the medications that she used to take either removed or limited and 1 of them was Xanax. He states that she is always miserable, not psychotic she is just miserable because she is in such pain. He believes that while sometimes she wants to , she does not have any plans to and sometimes she does this just to "take away the pain". He states that she does have a psychiatrist that she does follow-up with. I talked with him about a pain management physician because she does not have 1 and he feels that this would be a good alternative. He is awake alert and oriented x3, calm, cooperative and a very understanding and I believe a very responsible adult. I talked with him about risks and benefits of being transferred to a psychiatric facility versus being discharged into his care. He is completely willing to sign a form that he will take responsibility for her and understands that she might attempt to kill herself at home but he believes that she will not. He is willing to take the responsibility to make sure that she gets not only the follow-up psychological care that she needs, but also will attempt pain management follow-up to help with her chronic pain. I believe that this is completely reasonable, and given the entire situation, most likely a better alternative than sending the patient away to a psychiatric facility. Like other hospitals, this facility does not have any types of forms for this type of situation, so I typed up a form for the situation I signed it, and the patient's signed it as well. It is stable for discharge into her care. Departure - Departure Time of Disposition: 22:58 Disposition: Home, Self-Care 01 Clinical Impression: Depression with suicidal ideation, Chronic pain - Discharge Information Instructions: Suicidal Feelings: How to Help Yourself, Chronic Pain, Adult Referrals: Parish Sullivan MD [Primary Care Provider] - Forms: ED Department Discharge Sepsis Event Note - Evaluation Sepsis Screening Result: No Definite Risk - Focused Exam Vital Signs: Vital Signs Temp Pulse Resp BP Pulse Ox 12/27/19 20:15 87 18 109/65 96 12/27/19 17:10 81 18 120/93 H 97 12/27/19 16:40 72 17 120/83 96 12/27/19 15:40 76 18 118/82 97 12/27/19 15:00 78 18 117/81 95 12/27/19 14:49 36.4 C 82 18 129/87 95 Date Exam was Performed: 12/27/19 Time Exam was Performed: 22:52
== END 2019-12-27 23:07 | disposition home or self-care (01) ==
LOC: MW.ED 14:26
DX: F32.9 Major depressive disorder, single episode, unspecified (principal); F41.9 Anxiety disorder, unspecified; F17.210 Nicotine dependence, cigarettes, uncomplicated; Z88.8 Allergy status to other drugs, medicaments and biological substances; Z91.09 Other allergy status, other than to drugs and biological substances; Z79.899 Other long term (current) drug therapy
CPT/HCPCS: 36415; 71045; 80053; 80305; 80307; 81001; 84443; 85025; 87086; 93005; 96372; 96374; 99285; J1200; J1630; J2060; 87088; 87186

== ENCOUNTER 2021-03-07 06:39 | Day surgery (SDC) | payer OTHER ==
[2021-03-07] MEDS ORDERED: Propofol 200 MG/20 ML SDV ONE (07:04)
[2021-03-07] MEDS ORDERED: Midazolam 1 MG/ML 2 ML SDV ONE (07:04)
[2021-03-07] MEDS ORDERED: fentaNYL 250 MCG/5 ML SDV ONE (07:04)
[2021-03-07] MEDS ORDERED: Ketorolac 30 MG/ML SDV ONE (07:05)
[2021-03-07] MEDS ORDERED: Rocuronium Bromide 50 MG/5 ML Syringe ONE (07:05)
[2021-03-07] MEDS ORDERED: Ondansetron 4 MG/2 ML SDV ONE (07:05)
[2021-03-07] MEDS ORDERED: Lidocaine 2% 5 ML SDV ONE (07:05)
[2021-03-07] MEDS ORDERED: Glycopyrrolate 0.2 MG/ML SDV ONE (07:05)
[2021-03-07] MEDS ORDERED: Sugammadex Sodium 200 MG/2 ML VIAL ONE (07:05)
[2021-03-07] MEDS ORDERED: Acetaminophen 1,000 MG in Premix Bag 1 BAG IV PRN (07:22)
[2021-03-07] MEDS ORDERED: Sodium Chloride 0.9% 20 ML ONE (07:29)
[2021-03-07] MEDS ORDERED: ceFAZolin 1 GM Vial ONE (07:29)
[2021-03-07] MEDS ORDERED: Bupivacaine 0.25% 10 ML SDV ONE (07:37)
[2021-03-07] MEDS ORDERED: Fluorescein 5 ML Vial ONE (07:37)
--- NOTE | 2021-03-07 07:37 | PCM.HPR ---
H & P Addendum review - H & P Addendum Review Date of Original H & P: 02/21/21 Date Reviewed: 03/07/21 Time Reviewed: 07:36 Patient was Examined: No Changes
[2021-03-07] MEDS ORDERED: Octyl 2-Cyanoacrylate 1 Tube ONE (07:38)
--- NOTE | 2021-03-07 07:45 | PCM.PREANE ---
Preanesthetic Assessment - Anesthesia/Transfusion/Family Hx Anesthesia History: Prior Anesthesia Without Reaction Other Type of Anesthesia Reaction Comment: Denies any known problem in the past Family History of Anesthesia Reaction: No Transfusion History: Prior Transfusion Without Reaction Intubation History: Unknown - Review of Systems General: No Symptoms Pulmonary: No Symptoms Cardiovascular: No Symptoms Gastrointestinal: No Symptoms Neurological: No Symptoms Other: Reports: None - Physical Assessment NPO Status Date: 03/07/21 NPO Status Time: 00:01 Vital Signs: Last Vital Signs Temp 98.1 F 03/07/21 07:18 Pulse 78 03/07/21 07:18 Resp 18 03/07/21 07:18 BP 113/72 03/07/21 07:18 Pulse Ox 90 L 03/07/21 07:18 Height: 5 ft 6 in Weight: 194 lb ASA Class: 2 Mental Status: Alert & Oriented x3 Dentition: Reports: Normal Dentition ROM/Head Extension: Limited/Partial Lungs: Clear to Auscultation, Normal Respiratory Effort Cardiovascular: Regular Rate, Regular Rhythm - Allergies Allergies/Adverse Reactions: Allergies Allergy/AdvReac Type Severity Reaction Status Date / Time adhesive Allergy Rash Verified 03/07/21 07:14 apixaban [From Eliquis] Allergy Hives Verified 03/07/21 07:14 - Anesthesia Plan Pre-Op Medication Ordered: None - Acknowledgements Anesthesia Type Planned: General Anesthesia Pt an Appropriate Candidate for the Planned Anesthesia: Yes Alternatives and Risks of Anesthesia Discussed w Pt/Guardian: Yes Pt/Guardian Understands and Agrees with Anesthesia Plan: Yes Additional Comments: npo after mn anxiety depression no afib tob 7-8 cigars a day etoh hx abuse none now soha no cpap Hep C treated 4 years ago not contagious L hemicolectomy 2015 reintubated in [facility] and in ICU for several days told was too sleepy obesity bmi 31 no cv problems sp02 preop 90 par no questions not on any blood thinners PreAnesthesia Questionnaire - Past Health History Medical/Surgical History: Denies Medical/Surgical History HEENT History: Reports: Cataract Other HEENT History: wear glasses Cardiovascular History: Reports: None Respiratory History: Reports: None Gastrointestinal History: Reports: Cholelithiasis, Cirrhosis, Colon Polyp, Hepatitis, Other (See Below) Other Gastrointestinal History: hx of Hepatitis C- has been treated, hx of portal hypertension from the cirrhosis Genitourinary History: Reports: Other (See Below) Other Genitourinary History: UTI in the past, hx septic shock 2017 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: Musculoskeletal History: Reports: Fracture, Other (See Below) Other Musculoskeletal History: hx of sepsis in shoulder and left foot Neurological History: Reports: None Psychiatric History: Reports: Anxiety, Bipolar, Depression Endocrine/Metabolic History: Reports: Obesity/BMI 30+ Hematologic History: Reports: Blood Transfusion(s) Immunologic History: Reports: None Oncologic (Cancer) History: Reports: Colon Dermatologic History: Reports: None - Infectious Disease History Infectious Disease History: Reports: Chicken Pox, Hepatitis C, MRSA - Past Surgical History Head Surgeries/Procedures: Reports: None HEENT Surgical History: Reports: Tonsillectomy Cardiovascular Surgical History: Reports: None Respiratory Surgical History: Reports: None GI Surgical History: Reports: Cholecystectomy, Colon, Colonoscopy, EGD Other GI Surgeries/Procedures: hx of Right Hemicolectomy for colon cancer Female Surgical History: Reports: Section, Tubal Ligation Other Female Surgeries/Procedures: x3, hx of Abdominoplasty Endocrine Surgical History: Reports: None Neurological Surgical History: Reports: None, Other (See Below) Musculoskeletal Surgical History: Reports: Carpal Tunnel, ORIF, Shoulder Surgery, Other (See Below) Other Musculoskeletal Surgeries/Procedures:: left shoulder surgery, hx of ORIF right leg- has florentino, stabilizing of left heel- has hardware, debridement of shoulder and left heel because of sepsis Oncologic Surgical History: Reports: Other (See Below) Other Oncologic Surgeries/Procedures: Right Hemicolectomy Dermatological Surgical History: Reports: None - SUBSTANCE USE Tobacco Use Status *Q: Current Some Day Tobacco User Tobacco Use Within Last Twelve Months: Cigars - HOME MEDS Home Medications: Home Meds DULoxetine [Cymbalta] 90 mg PO DAILY 03/01/21 [History] LORazepam [Ativan] 0.5 mg PO BEDTIME 03/01/21 [History] Multivitamin 1 tab PO DAILY 03/01/21 [History] - CURRENT (IN HOUSE) MEDS Current Meds: Current Medications Fentanyl (Fentanyl 100 Mcg/2 Ml Sdv) 50 mcg IVPUSH Q5M PRN PRN Reason: Pain Lactated Ringer's (Ringers, Lactated) 1,000 mls @ 125 mls/hr IV ASD[facility]RECTED [facility] Last Admin: 03/07/21 07:13 Dose: 125 mls/hr Documented by: Acetaminophen 1,000 mg/ Premix 100 mls @ 400 mls/hr IV Q6H PRN PRN Reason: Pain Discontinued Medications Cefazolin Sodium (Cefazolin 1 Gm Vial) Confirm Administered Dose 2 gm .ROUTE .STK-MED ONE Stop: 03/07/21 07:30 Fentanyl (Fentanyl 250 Mcg/5 Ml Sdv) Confirm Administered Dose 250 mcg .ROUTE .STK-MED ONE Stop: 03/07/21 07:05 Glycopyrrolate (Glycopyrrolate 0.2 Mg/Ml Sdv) Confirm Administered Dose 0.2 mg .ROUTE .STK-MED ONE Stop: 03/07/21 07:06 Sodium Chloride (Normal Saline) Confirm Administered Dose 20 mls @ as directed .ROUTE .STK-MED ONE Stop: 03/07/21 07:30 Ketorolac Tromethamine (Ketorolac 30 Mg/Ml Sdv) Confirm Administered Dose 30 mg .ROUTE .STK-MED ONE Stop: 03/07/21 07:06 Lidocaine (Lidocaine 2% 5 Ml Sdv) Confirm Administered Dose 5 ml .ROUTE .STK-MED ONE Stop: 03/07/21 07:06 Midazolam HCl (Midazolam 1 Mg/Ml 2 Ml Sdv) Confirm Administered Dose 2 mg .ROUTE .STK-MED ONE Stop: 03/07/21 07:05 Ondansetron HCl (Ondansetron 4 Mg/2 Ml Sdv) Confirm Administered Dose 4 mg .ROUTE .STK-MED ONE Stop: 03/07/21 07:06 Propofol (Propofol 200 Mg/20 Ml Sdv) Confirm Administered Dose 200 mg .ROUTE .STK-MED ONE Stop: 03/07/21 07:05 Rocuronium [place] (Rocuronium [place] 50 Mg/5 Ml Syringe) Confirm Administered Dose 50 mg .ROUTE .STK-MED ONE Stop: 03/07/21 07:06 Sugammadex Sodium (Sugammadex Sodium 200 Mg/2 Ml Vial) Confirm Administered Dose 200 mg .ROUTE .STK-MED ONE Stop: 03/07/21 07:06
[2021-03-07] MEDS ORDERED: Bupivacaine 0.5% 30 ML SDV ONE (07:46)
[2021-03-07] MEDS ORDERED: fentaNYL 100 MCG/2 ML SDV ONE (08:30)
[2021-03-07] MEDS ORDERED: fentaNYL 100 MCG/2 ML SDV IVPUSH PRN (09:44)
[2021-03-07] MEDS ORDERED: Acetaminophen/oxyCODONE 325-5 MG Tab PO PRN (09:44)
[2021-03-07] MEDS ORDERED: Lactated Ringers 1,000 ML IV SCH (09:45)
[2021-03-07] MEDS ORDERED: Morphine 4 MG/ML Syringe IV PRN (10:00)
--- NOTE | 2021-03-07 10:05 | PCM.OPNOTE ---
- General Post-Op/Procedure Note Date of Surgery/Procedure: 03/07/21 Operative Procedure(s): Laparoscopic BSO Findings: Serous cystadenoma from the right ovary. No evidence of malignancy. 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 Pathology: Frozen section serous cystadenoma Fluid Replacement, Intraop: 1,500 EBL in mLs: 25 Complications: None Free Text/Narrative:: Intake & Output 03/06/21 03/07/21 03/07/21 22:59 06:59 14:59 Output Total 30 Balance -30 Patient taken to OR where GETA was obtained without difficulty. She was placed in dorsal lithotomy with arms tucked in the standard position with care to avoid compression or excess extension. She was prepped and draped in the normal, sterile fashion, and in/out catheterization was performed. Entry was made in the left upper quadrant with 5mm optivue trocar, and pneumoperitoneum was achieved under high flow and low pressure after abdominal placement was confirmed visually. There were dense omental adhesions to the prior midline scar, so a 12mm left lateral port and 5mm low pelvic port were placed under direct visualization. The right sided mass and tube were transected from the uterus with the harmonic device and dissection was taken laterally to isolate and transect the IP blood supply. The mass was then placed in a bag and drained in a controlled fashion and removed through the 12mm port and sent for frozen section. The right tube and ovary were then isolated and removed in a similar fashion and sent for permanent. When frozen result confirmed impression of benign disease, decision was made to terminate the procedure. Low pressure test was reassuring and the pelvis was cleared of clots and debris. 12mm incision was closed at the fascia with 0-vicryl. Port skin was closed with 4-0 monocryl and dermabond. She was extubated and taken to PACU stable and anticipating outpatient.
[2021-03-07] MEDS: fentaNYL 100 MCG/2 ML SDV IVPUSH PRN ×2 (10:07→10:16)
[2021-03-07] MEDS ORDERED: LORazepam 2 MG/ML SDV IVPUSH ONE (10:20)
--- NOTE | 2021-03-07 11:00 | PCM.POSTAN ---
POST ANESTHESIA ASSESSMENT - MENTAL STATUS Mental Status: Alert (no anesthetic problems), Oriented - VITAL SIGNS Vital Signs: Last Vital Signs Temp 97.5 F 03/07/21 09:45 Pulse 80 03/07/21 10:51 Resp 12 03/07/21 10:51 BP 129/85 03/07/21 10:51 Pulse Ox 96 03/07/21 10:51 - RESPIRATORY Respiratory Status: Respiratory Rate WNL, Airway Patent, O2 Saturation Stable - CARDIOVASCULAR CV Status: Pulse Rate WNL, Blood Pressure Stable - GASTROINTESTINAL GI Status: No Symptoms - POST OP HYDRATION Hydration Status: Adequate & Stable
--- NOTE | 2021-03-07 12:10 | PCM48HPAN ---
Post Anesthesia Note - EVALUATION WITHIN 48HRS OF ANESTHETIC Vital Signs in Normal Range: Yes Patient Participated in Evaluation: Yes Respiratory Function Stable: Yes Airway Patent: Yes Cardiovascular Function Stable: Yes Hydration Status Stable: Yes Pain Control Satisfactory: Yes Nausea and Vomiting Control Satisfactory: Yes Mental Status Recovered: Yes Vital Signs: Last Vital Signs Temp 97.5 F 03/07/21 09:45 Pulse 80 03/07/21 10:51 Resp 12 03/07/21 10:51 BP 129/85 03/07/21 10:51 Pulse Ox 96 03/07/21 10:51
[2021-03-07 13:43] VITALS: BP 111/72; PULSE 82
== END 2021-03-07 12:50 | disposition home or self-care (01) ==
LOC: MW.SDS 06:39
PROVIDERS: ATTEND Obstetrics & Gynecology
DX: D27.0 Benign neoplasm of right ovary (principal); N83.322 Acquired atrophy of left fallopian tube; N83.321 Acquired atrophy of right fallopian tube; F17.210 Nicotine dependence, cigarettes, uncomplicated; G47.33 Obstructive sleep apnea (adult) (pediatric); E66.9 Obesity, unspecified; Z68.31 Body mass index [BMI] 31.0-31.9, adult; Z88.8 Allergy status to other drugs, medicaments and biological substances; Z91.09 Other allergy status, other than to drugs and biological substances; Z85.038 Personal history of other malignant neoplasm of large intestine; Z98.890 Other specified postprocedural states
CPT/HCPCS: 58661; 88305; 88307; 88331; A9270; J0690; J1885; J2060; J2250; J2405; J2704; J3010; J3490; J7120; 00840